=== PATIENT | male | born 1945 | race Caucasian/White ===

== ENCOUNTER 2024-07-14 10:00 | Inpatient (IN) ==
[2024-07-14 10:35] LABS: Hematocrit (blood only) 33.9 % (42.0-52.0); Hemoglobin 11.5 g/dl (14.0-18.0); Mean Corpuscular Hemoglobin 32.4 pg (25.0-34.0); Mean Corpuscular Hgb Conc 33.9 g/dL (32.0-36.0); Mean Corpuscular Volume 95.5 fL (80.0-100.0); Mean Platelet Volume 11.4 fL (9.4-12.4); Platelet Count 265 K/uL (130-400); RDW Coefficient of Variation 13.4 % (11.5-14.5); RDW Standard Deviation 47.4 fL (36.4-46.3); Red Blood Count 3.55 M/uL (4.70-6.10); White Blood Count 16.87 K/ul (4.8-10.8)
--- NOTE | 2024-07-14 10:35 | XRay Report ---
XR chest 1V portable CLINICAL HISTORY: Chest pain, nonspecific COMPARISON STUDY: Chest CT December 27, 2012. Chest radiograph May 12, 2018. FINDINGS: There is no pneumothorax. A trace right pleural effusion is unchanged. This is likely chron ic. Linear right lung densities are unchanged and favor scarring. A 5 cm left perihilar mass-like abn ormality has developed. Multiple pulmonary nodules have also developed, measuring up to 1.9 cm. There is asymmetric right lower lung opacity. Cardiac size is stable. There is mild interstitial thickenin g. IMPRESSION: 1. Interval development of a 5 cm left perihilar mass-like abnormality. This is likely neoplastic and could represent a primary lung malignancy or pathologic lymph node. Multiple pulmonary nodules whic h are suspicious for metastatic disease. A chest CT with contrast is recommended for further evaluati on. 2. Nodular right lower lung opacity which could reflect a pulmonary nodule or focus of pneumonia. 3. Pulmonary vascular congestion. 4. Chronic changes within the right lung. ACT 112: Positive. There are findings on this exam that require communication between the performing entity and the patient following Patient Test Result Information Act ([place] Act 112) guidelines. Electronically signed by: Asael Humphrey M.D. 07/14/2024 10:33 AM
[2024-07-14 10:36] LABS: iSTAT Creatinine 0.8 mg/dl (0.6-1.3); iSTAT Hemoglobin 11.9 g/dl (14.0-18.0); iSTAT Ionized Calcium 1.47 mmol/l (1.12-1.32); iSTAT Potassium 3.5 mmol/L (3.3-5.0)
[2024-07-14] MEDS: MoRPHine SULFATE 4 MG/ML 1 ML CARP\\VIAL IV STA ×3 (10:42→12:52)
--- NOTE | 2024-07-14 10:42 | Emergency Department Note ---
Impression & Plan Hypoxia, Metastatic cancer, Abdominal pain, Acute confusion, Admission for hospice care ED Provider Note NAME: FARNAZ MCCAULEY AGE: 79 SEX: M : 1945 ARRIVES VIA: Ambulance INFORMANT: Patient ED PROVIDER(S): Peter Jackson DO CHIEF COMPLAINT: Altered mental status and abdominal pain HPI: Patient is an 79-year-old male with a past medical history of hypertension, hyperlipidemia, prediabetes, CAD who presents to the ER for confusion. Patient was found by EMS to be hypoxic. Patient was brought in and placed on 2 L nasal cannula. He admits to a runny nose. EMS also noted that he was confused. Patient admits to belly pain which he believes has been present for greater than 24 hours. He admits to urinary symptoms and notes that he is having trouble urinating and cannot urinate. He was able to urinate just prior to arrival. Family is present at bedside and notes that patient has been having worsening abdominal pain over the past several days. ADDITIONAL HISTORY OBTAINED: Per HPI Chronic Medical/Social Conditions Affecting Care: Per HPI PAST MEDICAL HISTORY:See Below PAST SURGICAL HISTORY:See Below FAMILY HISTORY:See Below SOCIAL HISTORY:See Below HOME MEDICATIONS:See Below ALLERGIES:See Below VITALS:See Below PHYSICAL EXAMINATION: GENERAL: Sitting up in bed, alert, ill-appearing, moderate distress holding his abdomen EYE EXAM: normal conjunctiva. PERRL and EOM's grossly intact. OROPHARYNX: no exudate, no erythema, lips, buccal mucosa, and tongue normal and mucous membranes are moist NECK: supple, no nuchal rigidity, no adenopathy, non-tender LUNGS: Clear to auscultation. Normal chest wall mechanics HEART: no murmurs, S1 normal and S2 normal ABDOMEN: abdomen soft, non-tender, normo-active bowel sounds, no masses, no rebound or guarding. UPPER EXTREMITIES: upper extremities are grossly normal. LOWER EXTREMITIES: No pitting edema. NEURO EXAM: Oriented to person and place but not year, cranial nerves II-XII intact, normal speech, no weakness of arms, no weakness of legs. No drift. Finger to nose intact. Gross sensation intact. MEDICAL DECISION MAKING: Patient is an 79-year-old male with a past medical history of hypertension, hyperlipidemia, CAD and STEMI who presents to the ER for the above-stated complaint. IV was established and blood work was obtained. Labs show a leukocytosis of 16,000. Mild anemia 11.5. INR unremarkable. BMP with slightly elevated glucose at 125. LFTs and bilirubin were unremarkable. Troponin was negative. Lipase was normal. UA was clean. CT of the chest and abdomen pelvis shows metastatic disease and no obvious obstruction or infectious process. Patient was given multiple doses of morphine while in the ER. Discussed with care managers as family would like to place him on hospice. They assisted with getting this set up and this will be set up for tomorrow. I spoke with the hospitalist and patient will be coming in for pain control. He remained on nasal cannula throughout his stay in the ER. Was admitted for further workup. Consults/Care Managements Discussions: Per MDM Triage Nursing notes reviewed. Limited review of prior medical records performed Vital Signs: reviewed and remarkable for HTN and tachy Differential diagnosis: Differential diagnoses includes but is not limited to toxic, metabolic, infectious, traumatic, cardiac, neurologic, hematologic, psychiatric and inflammatory etiologies. ER treatment provided: See below Diagnostics interpreted by me include EKG and cardiac monitoring as listed below: -Cardiac Monitoring: An order was placed for continuous cardiac monitoring. The monitor shows a rate of 90 with sinus rhythm. -ECG: none -Laboratory studies:Interpreted by me as stated above in MDM and shown below. Imaging studies: Xrays: As interpreted by me:none CTs show: CT abdomen pelvis per radiology shows no obvious obstruction per my preliminary interpreted she CT of the chest and abdomen pelvis shows metastatic disease Procedures:none Critical Care: I have personally spent 35 minutes of critical care time in the direct management of this patient. This includes bedside care, interpretation of diagnostic studies, and testing, discussion with consultants, patient, and family members, and other required patient management activities. This 35 minutes is in excess of all separately billable procedures. Past Med/Surg History Problem List (Updated 07/14/24 @ 14:18 by Peter Jackson DO) Admission for hospice care (Acute) Acute confusion (Acute) Abdominal pain (Acute) Metastatic cancer (Acute) Hypoxia (Acute) Pancreatic mass Lung mass HTN (hypertension) Hyperlipemia (Chronic) Continue increased dose of atorvastatin on discharge Prediabetes CAD (coronary artery disease) S/P drug eluting coronary stent placement Brilinta is nonformulary. Will convert to clopidogrel this morning. Cardiac rehab consultation to be placed S/P PTCA (percutaneous transluminal coronary angioplasty) STEMI (ST elevation myocardial infarction) Clinically stable. Will optimize medical therapy. Resume carvedilol and lisinopril at prehospital dosing. Reduce aspirin to 81 mg p.o. daily. Cardiac rehab consulted Tobacco cessation mandated Follow-up with cardiology 2- 4 weeks time [place] Fall (Acute) Hip fracture (Acute) Social History Smoking Status: Current every day smoker Second Hand Exposure: Yes; Do You Dip or Chew Tobacco: No; Hx Alcohol Use: No Hx Substance Use: No Preferred Language: Wolof Communication Ability: Effective [employer] Required: No Beliefs That Will Affect Care: None Current Living Situation: Spouse Feels Safe at Home: Yes Assistive Devices: None Allergies Allergies Allergy/AdvReac Type Severity Reaction Status Date / Time No Known Allergies Allergy Unverified 07/14/24 11:58 Home Meds Home Medications Medication Instructions Recorded Confirmed carvedilol 25 mg tablet 25 mg PO BID 05/11/18 07/14/24 indapamide 2.5 mg tablet 2.5 mg PO QAM 05/11/18 07/14/24 lisinopril 40 mg tablet 40 mg PO DAILY 05/11/18 07/14/24 nitroglycerin 0.4 mg sublingual 0.4 mg sublingual Q5M PRN Chest 05/11/18 07/14/24 tablet Pain atorvastatin 80 mg tablet 80 mg PO DAILY 07/14/24 07/14/24 clopidogrel 75 mg tablet 75 mg PO QAM 07/14/24 07/14/24 ferrous gluconate 324 mg (37.5 mg 324 mg PO DAILY 07/14/24 07/14/24 iron) tablet mirtazapine 15 mg tablet 15 mg PO HS 07/14/24 07/14/24 multivitamin-ferrous 1 tab PO DAILY 07/14/24 07/14/24 fumarate-folic acid 18 mg-400 mcg tablet ondansetron HCl 4 mg tablet 4 mg PO Q6H PRN Nausea And Vomiting 07/14/24 07/14/24 oxycodone 5 mg tablet 5 mg PO Q4H PRN Severe Pain (Scale 07/14/24 07/14/24 Score 7-10) terazosin 2 mg capsule 2 mg PO DAILY 07/14/24 07/14/24 trazodone 50 mg tablet 50 mg PO HS 07/14/24 07/14/24 Results & Data (ED) Vital Signs Vital Signs - 24 hr 07/14/24 10:11 07/14/24 10:18 07/14/24 10:48 Temperature 37.2 C Temperature Source Oral Pulse Rate 102 H 101 H Pulse Rate [Apical] Pulse Rate from SpO2 Sensor 98 H Pulse Rhythm Regular Pulse Rhythm [Apical] Pulse Strength Normal Pulse Strength [Apical] Respiratory Rate 31 H 23 Respiratory Effort / Characteristics Non-Labored Spontaneous Short of Breath Respiratory Depth Normal Respiratory Pattern Tachypnea Blood Pressure 187/95 H 159/72 H Blood Pressure [Right Arm] Blood Pressure Mean 125 101 Blood Pressure Mean [Right Arm] Blood Pressure Position [Right Arm] Pulse Oximetry 91 93 Oxygen Delivery Method Room Air Nasal Cannula Oxygen Flow Rate 2 Sepsis Recent Fever Within 48 Hours No Sepsis New/Unexplained Change in Mental Status Yes Sepsis Action Taken by Nursing Physician Notified 07/14/24 11:30 Temperature Temperature Source Pulse Rate Pulse Rate [Apical] 96 H Pulse Rate from SpO2 Sensor Pulse Rhythm Pulse Rhythm [Apical] Regular Pulse Strength Pulse Strength [Apical] Normal Respiratory Rate 16 Respiratory Effort / Characteristics Non-Labored Spontaneous Respiratory Depth Normal Respiratory Pattern Regular Blood Pressure Blood Pressure [Right Arm] 164/71 H Blood Pressure Mean Blood Pressure Mean [Right Arm] 102 Blood Pressure Position [Right Arm] Lying Pulse Oximetry 97 Oxygen Delivery Method Nasal Cannula Oxygen Flow Rate 2 Sepsis Recent Fever Within 48 Hours Sepsis New/Unexplained Change in Mental Status Sepsis Action Taken by Nursing Laboratory Data 07/14/24 10:13 07/14/24 10:13 Lab Results 07/14/24 07/14/24 07/14/24 Range/Units 10:13 10:24 10:27 WBC 16.87 H (4.8-10.8) K/ul RBC 3.55 L (4.70-6.10) M/uL Hgb 11.5 L (14.0-18.0) g/dl POC Hgb 11.9 L (14.0-18.0) g/dl Hct 33.9 L (42.0-52.0) % POC Hct 35 L (42-52) % MCV 95.5 (80.0-100.0) fL MCH 32.4 (25.0-34.0) pg MCHC 33.9 (32.0-36.0) g/dL RDW Std Deviation 47.4 H (36.4-46.3) fL RDW Coeff of Luis Eduardo 13.4 (11.5-14.5) % Plt Count 265 (130-400) K/uL MPV 11.4 (9.4-12.4) fL Immature Gran % (Auto) 1.7 % Neut % (Auto) 40.9 % Lymph % (Auto) 49.9 % Graham % (Auto) 7.3 % Eos % (Auto) 0.1 % Baso % (Auto) 0.1 % Neut # (Auto) 6.90 H (1.40-6.50) K/uL Lymph # (Auto) 8.42 H (1.20-3.40) K/uL Graham # (Auto) 1.23 H (0.11-0.59) K/uL Eos # (Auto) 0.01 (0.00-0.50) K/uL Baso # (Auto) 0.02 (0.00-0.20) K/uL Immature Gran # (Auto) 0.29 H (0.01-0.20) K/uL PT 12.8 H (9.0-12.0) Seconds INR 1.2 H (0.9-1.1) POC Sodium 135 (135-144) mmol/L Sodium 137 (136-145) mmol/L POC Potassium 3.5 (3.3-5.0) mmol/L Potassium 3.7 (3.5-5.1) mmol/L POC Chloride 91 L (101-112) mmol/L Chloride 94 L (98-107) mmol/L Carbon Dioxide 38 H (21-32) mmol/L POC Total CO2 32 H (24-31) mmol/L Anion Gap 5 (3-11) POC Anion Gap 16.0 (16-25) mmol/L POC BUN 17 (7-18) mg/dl BUN 16 (6-23) mg/dl Creatinine 0.73 (0.6-1.4) mg/dl POC Creatinine 0.8 (0.6-1.3) mg/dl Est Cr Clr Drug Dosing 84.5 ml/min eGFR 91.40 BUN/Creatinine Ratio 21.9 H (10-20) Glucose 125 H (70-99(Fasting)) mg/dl POC Glucose (other) 130 H (70-99) mg/dl Calcium 11.8 H (8.6-10.3) mg/dl POC Ioniz Calcium Evelia 1.47 H (1.12-1.32) mmol/l Total Bilirubin 0.6 (0.2-1.0) mg/dl AST 12 L (13-39) U/L ALT 15 (7-52) U/L Alkaline Phosphatase 80 (34-104) U/L Troponin I High Sens 12.1 (0-20) pg/ml Total Protein 6.0 (6.0-8.3) gm/dl Albumin 3.2 L (3.4-5.0) gm/dl Globulin 2.8 (2.5-4.0) gm/dl Albumin/Globulin Ratio 1.1 (0.9-2) Lipase 47 (11-82) U/L Urine Color Yellow Urine Appearance Clear (Clear) Urine pH 6.5 (4.5-7.5) Ur Specific [place] 1.017 (1.000-1.030) Urine Protein 2+ H (Negative) Urine Glucose (UA) Negative (Negative) Urine Ketones Negative (Negative) Urine Blood Negative (Negative) Urine Nitrite Negative (Negative) Urine Bilirubin Negative (Negative) Urine Urobilinogen Negative (Negative) Ur Leukocyte Esterase Negative (Negative) Urine WBC (Auto) 0-5 (0-5) /hpf Urine RBC (Auto) 3-5 H (0-2) /hpf U Hyaline Cast (Auto) 0-2 (0-2) /lpf U Epithel Cells (Auto) 0-2 (0-2) /hpf Urine Bacteria (Auto) None Seen (None Seen) Administered Medications Discontinued Medications Ioversol (Optiray 320 125ml) 120 ml IV ONCE ONE Stop: 07/14/24 11:03 Last Admin: 07/14/24 11:02 Dose: 120 ml Documented By: BRMichael Morphine Sulfate (Morphine Sulfate 4 Mg/Ml 1 Ml Carp\Vial) 4 mg IV NOW STA Stop: 07/14/24 10:40 Last Admin: 07/14/24 10:42 Dose: 4 mg Documented By: KMO Morphine Sulfate (Morphine Sulfate 4 Mg/Ml 1 Ml Carp\Vial) 4 mg IV NOW STA Stop: 07/14/24 11:27 Last Admin: 07/14/24 12:48 Dose: 4 mg Documented By: KMO Morphine Sulfate (Morphine Sulfate 4 Mg/Ml 1 Ml Carp\Vial) 4 mg IV NOW STA Stop: 07/14/24 11:45 Last Admin: 07/14/24 12:52 Dose: Not Given Documented By: NELY Morphine Sulfate (Morphine Sulfate 10 Mg/Ml Carp/Vial) 6 mg IV NOW STA Stop: 07/14/24 13:07 Last Admin: 07/14/24 13:21 Dose: 6 mg Documented By: NELY Ondansetron HCl (Ondansetron Inj 2 Mg/Ml 2 Ml Vial) 4 mg IV NOW STA Stop: 07/14/24 10:44 Last Admin: 07/14/24 10:46 Dose: 4 mg Documented By: NELY Imaging Data Radiologist's Impression: Abdomen/Pelvis CT 07/14/24 10:10 CT OF THE ABDOMEN AND PELVIS WITH CONTRAST CLINICAL HISTORY: Abdominal pain. COMPARISON STUDY: CT of the abdomen and pelvis December 27, 2012. TECHNIQUE: Following IV administration of 120 mL of Optiray, axial images of the abdomen and pelvis were obtained from the lung bases to the proximal femurs. Images were reviewed in the axial, sagittal, and coronal planes. IV contrast was administered without complication. Automated exposure control was utilized for the study. A dose lowering technique was utilized adhering to the principles of ALARA. CT DOSE: 2194.64 mGy.cm FINDINGS: Please note that the chest CT will be reported separately. There are numerous nodules, many of which appear necrotic, within the lower lungs, including a 2.7 cm right middle lobe lesion on image 31 of 413. No pneumatosis, free air or portal venous gas is present. There are no hepatic lesions. There are gallstones within the gallbladder without evidence for acute cholecystitis. Bilateral adrenal gland nodularity is unchanged since CT of December 27, 2012. Multiple enlarged retroperitoneal lymph nodes are noted. The largest is a necrotic left para-aortic lymph node on image 130 that measures 3 x 2.7 cm. An ill-defined pancreatic tail lesion measures 4.2 x 3.6 cm. An ill-defined hypoenhancing left renal mass measures 5.4 x 4.5 cm. No suspicious right renal lesions are present. There is no hydronephrosis. Bilateral perinephric stranding is noted. There is also a sacral/perirectal stranding and fluid. No fluid collection is present with there is no evidence for a bowel obstruction. Left hip arthroplasty is incidentally noted. No suspicious lesions within the lumbar spine, pelvis or hips are identified by CT. IMPRESSION: 1. Numerous pulmonary metastases within the lung bases, retroperitoneal lymphadenopathy and hypoenhancing ill-defined left renal and pancreatic tail masses. These findings are neoplastic and favor metastatic disease. Metastatic lung cancer is favored given the dominant left lower lobe lesion depicted on chest CT. Although less likely, metastatic pancreatic or renal cell carcinoma could appear similar. Oncology consultation is recommended. 2. Perinephric and presacral/perirectal stranding. The findings suggest mild volume overload. 3. No bowel obstruction. No bowel wall thickening. 4. Cholelithiasis. ACT 112: Negative or not required by law. Electronically signed by: Asael Humphrey M.D. 07/14/2024 11:35 AM Chest X-Ray 07/14/24 10:10 XR chest 1V portable CLINICAL HISTORY: Chest pain, nonspecific COMPARISON STUDY: Chest CT December 27, 2012. Chest radiograph May 12, 2018. FINDINGS: There is no pneumothorax. A trace right pleural effusion is unchanged. This is likely chronic. Linear right lung densities are unchanged and favor scarring. A 5 cm left perihilar mass-like abnormality has developed. Multiple pulmonary nodules have also developed, measuring up to 1.9 cm. There is asymmetric right lower lung opacity. Cardiac size is stable. There is mild interstitial thickening. IMPRESSION: 1. Interval development of a 5 cm left perihilar mass-like abnormality. This is likely neoplastic and could represent a primary lung malignancy or pathologic lymph node. Multiple pulmonary nodules which are suspicious for metastatic disease. A chest CT with contrast is recommended for further evaluation. 2. Nodular right lower lung opacity which could reflect a pulmonary nodule or focus of pneumonia. 3. Pulmonary vascular congestion. 4. Chronic changes within the right lung. ACT 112: Positive. There are findings on this exam that require communication between the performing entity and the patient following Patient Test Result Information Act ([place] Act 112) guidelines. Electronically signed by: Asael Humphrey M.D. 07/14/2024 10:33 AM Chest CTA 07/14/24 10:40 CT angio chest PE protocol HISTORY: 79 years-old Male with PE. Acute shortness of breath TECHNIQUE: Multiple CTA images of the chest were obtained after the intravenous administration of 120 ml Optiray. Coronal and sagittal MIPS were obtained from the axial data set and were submitted for review. All measurements were obtained according to NASCET criteria. A dose lowering technique was utilized adhering to the principles of ALARA. COMPARISON: CT abdomen and pelvis of same day FINDINGS: CTA: Mild cardiomegaly. No pericardial effusion. [id number] coronary artery calcifications. Atherosclerosis of the thoracic aorta without aneurysm or dissection. Unremarkable pulmonary artery. No pulmonary emboli identified. CT CHEST: Subcentimeter hypodense thyroid nodules. Subcentimeter mediastinal and hilar lymph nodes. Chronic appearing pleural thickening of the right hemithorax with pleural calcifications. Chronic appearing right lung volume loss with fibrosis and pulmonary emphysema. Bronchial wall thickening suggestive of bronchitis with areas of multifocal mucus plugging. There is a dominant centrally necrotic mass arising from the posterior left hilum involving the left upper lobe abutting and crossing the adjacent fissure overall measuring approximately 6.9 x 6.0 x 5.7 cm. There are adjacent satellite nodules along superior margin of the mass. Numerous pulmonary metastasis extending to a subpleural distributions including a 2.5 cm lesion of the lingula on image 113. A 2.3 cm right-sided lesion is noted on image 89 series 5. Body wall edema. Probable sebaceous cystr of the back on image 95 measures 1.8 cm. Pancreatic mass. Stable nodular thickening of the adrenal glands. Osteolytic skeletal lesions at T5 with cortical destruction and left lateral vertebral body soft tissue component. There is only minimal vertebral body height loss. IMPRESSION: 1. Left posterior hilar/left upper lobe mass measures 6.9 cm suspicious for primary bronchogenic carcinoma or less likely a large metastatic focus. 2. Multifocal pulmonary metastasis. 3. Pulmonary emphysema with tracheobronchial secretions, bronchitis and mucous plugging. 4. Cardiomegaly with equivocal mild interstitial pulmonary edema. 5. Osteolytic T5 metastatic lesion with mild vertebral body height loss. 6. Large pancreatic mass suggestive of metastasis. Please refer to the same day CT abdomen and pelvis study for additional findings. 7. No pulmonary emboli identified. ACT 112: Negative or not required by law. The above report was generated using voice recognition software. It may contain grammatical, syntax or spelling errors. Electronically signed by: Delon Carr M.D. 07/14/2024 11:38 AM Discharge Plan Visit Data Chief Complaint: Illness Stated Complaint: SOB, CONFUSION, PAIN ALL OVER ED Provider: Peter Jackson Discharge Problem: Hypoxia, Metastatic cancer, Abdominal pain, Acute confusion, Admission for hospice care Patient Disposition: Admitted As Inpatient Discharge Instructions Interventions: ED Discharge Assessment Last Done: 07/14/24 13:33 Discharge Problem: Metastatic cancer Qualifiers: Area of secondary neoplastic involvement: unspecified site Qualified Code(s): C 79.9 - Secondary malignant neoplasm of unspecified site Abdominal pain Qualifiers: Abdominal location: unspecified location Qualified Code(s): R10.9 - Unspecified abdominal pain
[2024-07-14] MEDS: ONDANSETRON INJ 2 MG/ML 2 ML VIAL IV STA (10:46)
[2024-07-14 10:52] LABS: Albumin Globulin Ratio 1.1 (0.9-2); Albumin Level 3.2 gm/dl (3.4-5.0); BUN Creatinine Ratio 21.9 (10-20); Bilirubin,Total 0.6 mg/dl (0.2-1.0); Calcium 11.8 mg/dl (8.6-10.3); Creatinine Clr Calc Pharmacy 84.5 ml/min; Globulin 2.8 gm/dl (2.5-4.0); Potassium 3.7 mmol/L (3.5-5.1)
[2024-07-14 10:55] LABS: Appearance Urine Clear (Clear); Bacteria Urine Automated None Seen (None Seen); Bilirubin Urine Negative (Negative); Blood Urine Negative (Negative); Cast Urine Automated 0-2 /lpf (0-2); Color Urine Yellow; Epithelial Cell Urine Auto 0-2 /hpf (0-2); Glucose Urine UA Negative (Negative); Ketones Urine Negative (Negative); Leukocyte Esterase Urine Negative (Negative); Nitrite Urine Negative (Negative); Protein Urine 2+ (Negative); Specific Gravity Urine 1.017 (1.000-1.030); Urobilinogen Urine Negative (Negative); WBC Urine Automated 0-5 /hpf (0-5); pH Urine 6.5 (4.5-7.5)
[2024-07-14 10:56] LABS: Troponin I High Sensitivity 12.1 pg/ml (0-20)
[2024-07-14] MEDS: OPTIRAY 320 125ml IV ONE (11:02)
[2024-07-14 11:25] LABS: INR 1.2 (0.9-1.1); Prothrombin Time 12.8 Seconds (9.0-12.0)
--- NOTE | 2024-07-14 11:38 | CT Scan Report ---
CT OF THE ABDOMEN AND PELVIS WITH CONTRAST CLINICAL HISTORY: Abdominal pain. COMPARISON STUDY: CT of the abdomen and pelvis December 27, 2012. TECHNIQUE: Following IV administration of 120 mL of Optiray, axial images of the abdomen and pelvis w ere obtained from the lung bases to the proximal femurs. Images were reviewed in the axial, sagittal, and coronal planes. IV contrast was administered without complication. Automated exposure control w as utilized for the study. A dose lowering technique was utilized adhering to the principles of JOSE Olivier. CT DOSE: 2194.64 mGy.cm FINDINGS: Please note that the chest CT will be reported separately. There are numerous nodules, many of which appear necrotic, within the lower lungs, including a 2.7 cm right middle lobe lesion on liyah ge 31 of 413. No pneumatosis, free air or portal venous gas is present. There are no hepatic lesions. There are gallstones within the gallbladder without evidence for acute cholecystitis. Bilateral adre nal gland nodularity is unchanged since CT of December 27, 2012. Multiple enlarged retroperitoneal lymph nodes are noted. The largest is a necrotic left para-aortic lymph node on image 130 that measures 3 x 2.7 cm. An ill-defined pancreatic tail lesion measures 4.2 x 3.6 cm. An ill-defined hypoenhancing l eft renal mass measures 5.4 x 4.5 cm. No suspicious right renal lesions are present. There is no hydr onephrosis. Bilateral perinephric stranding is noted. There is also a sacral/perirectal stranding and fluid. No fluid collection is present with there is no evidence for a bowel obstruction. Left hip ar throplasty is incidentally noted. No suspicious lesions within the lumbar spine, pelvis or hips are i dentified by CT. IMPRESSION: 1. Numerous pulmonary metastases within the lung bases, retroperitoneal lymphadenopathy and hypoenhan cing ill-defined left renal and pancreatic tail masses. These findings are neoplastic and favor metas tatic disease. Metastatic lung cancer is favored given the dominant left lower lobe lesion depicted o n chest CT. Although less likely, metastatic pancreatic or renal cell carcinoma could appear similar. Oncology consultation is recommended. 2. Perinephric and presacral/perirectal stranding. The findings suggest mild volume overload. 3. No bowel obstruction. No bowel wall thickening. 4. Cholelithiasis. ACT 112: Negative or not required by law. Electronically signed by: Asael Humphrey M.D. 07/14/2024 11:35 AM
--- NOTE | 2024-07-14 11:40 | CT Scan Report ---
CT angio chest PE protocol HISTORY: 79 years-old Male with PE. Acute shortness of breath TECHNIQUE: Multiple CTA images of the chest were obtained after the intravenous administration of 120 ml Optiray. Coronal and sagittal MIPS were obtained from the axial data set and were submitted for review. All measurements were obtained according to NASCET criteria. A dose lowering technique was u tilized adhering to the principles of ALARA. COMPARISON: CT abdomen and pelvis of same day FINDINGS: CTA: Mild cardiomegaly. No pericardial effusion. [id number] coronary artery calcifications. Atherosc lerosis of the thoracic aorta without aneurysm or dissection. Unremarkable pulmonary artery. No pulmo nary emboli identified. CT CHEST: Subcentimeter hypodense thyroid nodules. Subcentimeter mediastinal and hilar lymph nodes. Chronic dina earing pleural thickening of the right hemithorax with pleural calcifications. Chronic appearing righ t lung volume loss with fibrosis and pulmonary emphysema. Bronchial wall thickening suggestive of bro nchitis with areas of multifocal mucus plugging. There is a dominant centrally necrotic mass arising from the posterior left hilum involving the left upper lobe abutting and crossing the adjacent fissure overall measuring approximately 6.9 x 6.0 x 5.7 cm. There are adjacent satellite nodules along superior margin of the mass. Numerous pulmonary metas tasis extending to a subpleural distributions including a 2.5 cm lesion of the lingula on image 113. A 2.3 cm right-sided lesion is noted on image 89 series 5. Body wall edema. Probable sebaceous cystr of the back on image 95 measures 1.8 cm. Pancreatic mass. S table nodular thickening of the adrenal glands. Osteolytic skeletal lesions at T5 with cortical destr uction and left lateral vertebral body soft tissue component. There is only minimal vertebral body he ight loss. IMPRESSION: 1. Left posterior hilar/left upper lobe mass measures 6.9 cm suspicious for primary bronchogenic carc inoma or less likely a large metastatic focus. 2. Multifocal pulmonary metastasis. 3. Pulmonary emphysema with tracheobronchial secretions, bronchitis and mucous plugging. 4. Cardiomegaly with equivocal mild interstitial pulmonary edema. 5. Osteolytic T5 metastatic lesion with mild vertebral body height loss. 6. Large pancreatic mass suggestive of metastasis. Please refer to the same day CT abdomen and pelvis study for additional findings. 7. No pulmonary emboli identified. ACT 112: Negative or not required by law. The above report was generated using voice recognition software. It may contain grammatical, syntax o r spelling errors. Electronically signed by: Delon Carr M.D. 07/14/2024 11:38 AM
[2024-07-14] MEDS ORDERED: MoRPHine SULFATE 2 MG/ML CARP IV PRN (11:58)
[2024-07-14 12:00] LABS: Basophils # (auto) 0.02 K/uL (0.00-0.20); Basophils % (auto) 0.1 %; Eosinophils # (auto) 0.01 K/uL (0.00-0.50); Eosinophils % (auto) 0.1 %; Immature Granulocytes # (auto) 0.29 K/uL (0.01-0.20); Immature Granulocytes % (auto) 1.7 %; Lymphocytes # (auto) 8.42 K/uL (1.20-3.40); Lymphocytes % (auto) 49.9 %; Monocytes # (auto) 1.23 K/uL (0.11-0.59); Monocytes % (auto) 7.3 %; Neutrophils % (auto) 40.9 %
[2024-07-14] MEDS: MoRPHine SULFATE 10 MG/ML CARP/VIAL IV STA (13:21)
--- NOTE | 2024-07-14 13:53 | Communication Note ---
Date of Service: July 14, 2024 79-year-old male with PMH of HTN, bladder cancer, PR, prediabetes presented to the ED with complaint of pain (lower belly and back) that was not being able to be controlled at home. Patient, his and daughters were at bedside. They are aware of the metastatic nature of the disease from June 17, 2024 when he was evaluated at [facility] per them. They were managing pain at home and does not want any further oncological treatment or evaluation. Admitting imagings revealed metastatic disease. Such was discussed with them. Patient in pain at bedside complains of lower abdominal pain and back pain which are not being controlled. At bedside evaluation, patient seems to understand the gravity of situation but wants to go with whatever the daughter and his decides. Initially the daughter and his wanted to take him home regardless whether or not hospice can be arranged today. Same was communicated to ER physician and ER correctional counselor/case manager. Plan was to send him home on pain medication by ER physician and set up hospice by ER correctional counselor/case manager. but they changed their mind and were okay to stay today because they thought they will not be able to manage his pain without hospice support at home. ED physician communicated with me that they wanted to stay. Patient and his family members were again seen at the bedside. Patient's RN was also present at bedside. Detailed discussion was held regarding active treatment/hospice and comfort measures. They are clear that they do not want any oncological evaluation/treatment going forward. They also wants to keep him comfortable for as many days he has to leave. They do not want any heart monitor or blood draws or any further radiological imaging or other investigation. they want comfort measures, and want to discontinue unnecessary treatments, and want to go home on hospice as soon as possible. They are aware that he has very short time but it can't be predicted w/ 100% certainty. Problem: Metastatic disease on comfort measures: Initiate comfort measures, consult correctional counselor/case manager for hospice eval and treat. No further labs/imaging/heart monitoring/other investigation. Plan is to keep patient comfortable per patient and his family. On exam: GENERAL: Alert and oriented x3. Appears lethargic/sick/ill/in pain. On 2 L NC O2. HEENT: No pallor, no icterus. Pupils equal, round and reactive to light. Oral mucosa dry. NECK: No JVD, no neck masses. HEART: S1 and S2 heard. Regular rate and rhythm. Tachy in 90s to 100s. No murmur, no gallop. RESPIRATORY SYSTEM: Normal AP diameter. No accessory muscle use. No wheezing, no crackles. ABDOMEN: Soft, bowel sounds present, nontender, no distention. CENTRAL NERVOUS SYSTEM: No facial droop. Speech is clear. Obeys simple commands. Moves extremities. EXTREMITIES: 1-2+ ble edema, no erythema seen. I have seen and examined the patient and have discussed the case with the provider above. I agree with the assessment and plan as stated. Time spent: 65 min
[2024-07-14] MEDS ORDERED: MoRPHine SULFATE 10 MG/0.5 ML UDP PO PRN (14:14)
[2024-07-14] MEDS ORDERED: ACETAMINOPHEN 325 MG TAB PO PRN (14:14)
--- NOTE | 2024-07-14 14:16 | History & Physical Report ---
Date of Service July 14, 2024 Assessment & Plan (1) HTN (hypertension): (2) Hyperlipemia: (3) CAD (coronary artery disease): (4) S/P drug eluting coronary stent placement: (5) S/P PTCA (percutaneous transluminal coronary angioplasty): (6) STEMI (ST elevation myocardial infarction): (7) Lung mass: (8) Pancreatic mass: Plan Assessment and plan: Heavily suspected metastatic disease Lung mets/pancreatic mass After extensive discussion with the patient and patient's family, the patient will be initiated on comfort measures innovation manager/hospice consulted for further evaluation and treatment Hopeful for discharge home in the next 24 hours on hospice. Will manage pain HTN: Continue carvedilol/lisinopril No further workup/lab work/heart monitoring indicated at this time A total of 60 minutes was spent on chart review/reviewing diagnostic data/facilitating plan of care/discussion with consultants Patient is a DNR/DNI DVT prophylaxis: SCDs Admission and Anticipated Discharge Date Admission Date: July 14, 2024 History of Present Illness Chief Complaint: Abdominal pain, shortness of breath Primary Care Provider: Bennett Slaughter MD The patient is a 79-year-old male with a past medical history of bladder [place], [place], HTN, [place], and recently discovered lung masses/pancreatic mass/metastatic disease recently diagnosed on 06/17/2024 when he was evaluated at [facility] per the patient and patient family. At this point, they were following with the PCP and they did not want any further oncology workup. The patient was being managed on oral pain meds at this time. On exam, patient reports some lower abdominal pain but reports that shortness of breath is improved. He is on 2 L of oxygen. The patient and the patient's family reports that the oxycodone was working up until a few days ago. They were also having trouble getting a refill from the patient's primary care provider. The patient's daughter also reports that he has not been eating anything over the past few days and having issues with constipation as well. On arrival to the ED, labs were remarkable for WBC 16, hemoglobin 11.5, calcium 11.8, AST 12 Chest CTA showed: 1. Left posterior hilar/left upper lobe mass measures 6.9 cm suspicious for primary bronchogenic carcinoma or less likely a large metastatic focus. 2. Multifocal pulmonary metastasis. 3. Pulmonary emphysema with tracheobronchial secretions, bronchitis and mucous plugging. 4. Cardiomegaly with equivocal mild interstitial pulmonary edema. 5. Osteolytic T5 metastatic lesion with mild vertebral body height loss. 6. Large pancreatic mass suggestive of metastasis. Please refer to the same day CT abdomen and pelvis study for additional findings. 7. No pulmonary emboli identified. Chest x-ray Showed: 1. Interval development of a 5 cm left perihilar mass-like abnormality. This is likely neoplastic and could represent a primary lung malignancy or pathologic lymph node. Multiple pulmonary nodules which are suspicious for metastatic disease. A chest CT with contrast is recommended for further evaluation. 2. Nodular right lower lung opacity which could reflect a pulmonary nodule or focus of pneumonia. 3. Pulmonary vascular congestion. 4. Chronic changes within the right lung. Abdomen/pelvis CT showed: 1. Numerous pulmonary metastases within the lung bases, retroperitoneal lymphadenopathy and hypoenhancing ill-defined left renal and pancreatic tail masses. These findings are neoplastic and favor metastatic disease. Metastatic lung cancer is favored given the dominant left lower lobe lesion depicted on chest CT. Although less likely, metastatic pancreatic or renal cell carcinoma could appear similar. Oncology consultation is recommended. 2. Perinephric and presacral/perirectal stranding. The findings suggest mild volume overload. 3. No bowel obstruction. No bowel wall thickening. 4. Cholelithiasis. Extensive discussion with Dr. Montez, the patient, the patient's daughter and the patient's about comfort measures versus further workup. Initially the and the daughter wanted to take the patient home but after further discussion, the patient will be admitted as a DNR/DNI and hospice and case management will be consulted to help facilitate discharge home on hospice. Primary concern is pain control. Allergies Allergy/AdvReac Type Severity Reaction Status Date / Time No Known Allergies Allergy Unverified 07/14/24 11:58 Home Medications Medication Instructions Recorded Confirmed Type carvedilol 25 mg tablet 25 mg PO BID 05/11/18 07/14/24 History indapamide 2.5 mg tablet 2.5 mg PO QAM 05/11/18 07/14/24 History lisinopril 40 mg tablet 40 mg PO DAILY 05/11/18 07/14/24 History nitroglycerin 0.4 mg sublingual 0.4 mg sublingual Q5M PRN Chest 05/11/18 07/14/24 History tablet Pain atorvastatin 80 mg tablet 80 mg PO DAILY 07/14/24 07/14/24 History clopidogrel 75 mg tablet 75 mg PO QAM 07/14/24 07/14/24 History ferrous gluconate 324 mg (37.5 mg 324 mg PO DAILY 07/14/24 07/14/24 History iron) tablet mirtazapine 15 mg tablet 15 mg PO HS 07/14/24 07/14/24 History multivitamin-ferrous 1 tab PO DAILY 07/14/24 07/14/24 History fumarate-folic acid 18 mg-400 mcg tablet ondansetron HCl 4 mg tablet 4 mg PO Q6H PRN Nausea And Vomiting 07/14/24 07/14/24 History oxycodone 5 mg tablet 5 mg PO Q4H PRN Severe Pain (Scale 07/14/24 07/14/24 History Score 7-10) terazosin 2 mg capsule 2 mg PO DAILY 07/14/24 07/14/24 History trazodone 50 mg tablet 50 mg PO HS 07/14/24 07/14/24 History Past Med/Surg History Problem List (Updated 07/14/24 @ 14:18 by Peter Jackson DO) Admission for hospice care (Acute) Acute confusion (Acute) Abdominal pain (Acute) Metastatic cancer (Acute) Hypoxia (Acute) Pancreatic mass Lung mass HTN (hypertension) Hyperlipemia (Chronic) Continue increased dose of atorvastatin on discharge Prediabetes CAD (coronary artery disease) S/P drug eluting coronary stent placement Brilinta is nonformulary. Will convert to clopidogrel this morning. Cardiac rehab consultation to be placed S/P PTCA (percutaneous transluminal coronary angioplasty) STEMI (ST elevation myocardial infarction) Clinically stable. Will optimize medical therapy. Resume carvedilol and lisinopril at prehospital dosing. Reduce aspirin to 81 mg p.o. daily. Cardiac rehab consulted Tobacco cessation mandated Follow-up with cardiology 2- 4 weeks time [facility] (Acute) Hip fracture (Acute) Social History Smoking Status: Current every day smoker Second Hand Exposure: Yes; Do You Dip or Chew Tobacco: No; Hx Alcohol Use: No Hx Substance Use: No Preferred Language: Barbadian Communication Ability: Effective Roll Winder Required: No Beliefs That Will Affect Care: Spiritual Current Living Situation: Spouse Feels Safe at Home: Yes Assistive Devices: None Review of Systems Review of Systems: All systems reviewed & are unremarkable except as noted in HPI & below Physical Exam Constitutional: WD/WN, vitals as above + ill appearing Eyes: PERRL, conjunctivae normal, anicteric sclerae ENMT: external ear and nose normal, oropharynx normal Neck: trachea midline, no thyromegaly Respiratory: normal respiratory effort, lungs clear to auscultation Cardiovascular: RRR, no murmur, no edema Gastrointestinal (Abdomen): normal bowel sounds, soft, nontender, no hepatosplenomegaly Musculoskeletal: no cyanosis or clubbing, extremities motor strength 5/5 Skin: no rashes, warm and dry Neurologic: patellar DTR's 2+ bilat, sensation intact Lymphatic: no cervical or axillary lymphadenopathy Results & Data Results & Data Vital Signs (Past 12 Hours) Vital Signs Temp Pulse Pulse Resp BP BP Pulse Ox 07/14/24 13:33 07/14/24 13:00 94 H 16 170/76 H 96 07/14/24 12:30 172/121 H 07/14/24 12:27 99 H 21 96 07/14/24 12:15 99 H 25 H 96 07/14/24 12:00 146/112 H 07/14/24 11:30 96 H 16 164/71 H 97 07/14/24 10:48 23 159/72 H 93 07/14/24 10:18 37.2 C 101 H 31 H 187/95 H 91 07/14/24 10:11 102 H O2 Del Method O2 Flow Rate 07/14/24 13:33 Room Air 07/14/24 13:00 Nasal Cannula 2 07/14/24 12:30 07/14/24 12:27 Nasal Cannula 2 07/14/24 12:15 Nasal Cannula 2 07/14/24 12:00 07/14/24 11:30 Nasal Cannula 2 07/14/24 10:48 Nasal Cannula 2 07/14/24 10:18 Room Air 07/14/24 10:11 Diagnostic Findings Laboratory Results WBC 16.87 K/ul (4.8-10.8) H 07/14/24 10:13 RBC 3.55 M/uL (4.70-6.10) L 07/14/24 10:13 Hgb 11.5 g/dl (14.0-18.0) L 07/14/24 10:13 POC Hgb 11.9 g/dl (14.0-18.0) L 07/14/24 10:24 Hct 33.9 % (42.0-52.0) L 07/14/24 10:13 POC Hct 35 % (42-52) L 07/14/24 10:24 MCV 95.5 fL (80.0-100.0) 07/14/24 10:13 MCH 32.4 pg (25.0-34.0) 07/14/24 10:13 MCHC 33.9 g/dL (32.0-36.0) 07/14/24 10:13 RDW Std Deviation 47.4 fL (36.4-46.3) H 07/14/24 10:13 RDW Coeff of Luis Eduardo 13.4 % (11.5-14.5) 07/14/24 10:13 Plt Count 265 K/uL (130-400) 07/14/24 10:13 MPV 11.4 fL (9.4-12.4) 07/14/24 10:13 Immature Gran % (Auto) 1.7 % 07/14/24 10:13 Neut % (Auto) 40.9 % 07/14/24 10:13 Lymph % (Auto) 49.9 % 07/14/24 10:13 [place] % (Auto) 7.3 % 07/14/24 10:13 Eos % (Auto) 0.1 % 07/14/24 10:13 Baso % (Auto) 0.1 % 07/14/24 10:13 Neut # (Auto) 6.90 K/uL (1.40-6.50) H 07/14/24 10:13 Lymph # (Auto) 8.42 K/uL (1.20-3.40) H 07/14/24 10:13 [place] # (Auto) 1.23 K/uL (0.11-0.59) H 07/14/24 10:13 Eos # (Auto) 0.01 K/uL (0.00-0.50) 07/14/24 10:13 Baso # (Auto) 0.02 K/uL (0.00-0.20) 07/14/24 10:13 Immature Gran # (Auto) 0.29 K/uL (0.01-0.20) H 07/14/24 10:13 PT 12.8 Seconds (9.0-12.0) H 07/14/24 10:13 INR 1.2 (0.9-1.1) H 07/14/24 10:13 POC Sodium 135 mmol/L (135-144) 07/14/24 10:24 Sodium 137 mmol/L (136-145) 07/14/24 10:13 POC Potassium 3.5 mmol/L (3.3-5.0) 07/14/24 10:24 Potassium 3.7 mmol/L (3.5-5.1) 07/14/24 10:13 POC Chloride 91 mmol/L (101-112) L 07/14/24 10:24 Chloride 94 mmol/L (98-107) L 07/14/24 10:13 Carbon Dioxide 38 mmol/L (21-32) H 07/14/24 10:13 POC Total CO2 32 mmol/L (24-31) H 07/14/24 10:24 Anion Gap 5 (3-11) 07/14/24 10:13 POC Anion Gap 16.0 mmol/L (16-25) 07/14/24 10:24 POC BUN 17 mg/dl (7-18) 07/14/24 10:24 BUN 16 mg/dl (6-23) 07/14/24 10:13 Creatinine 0.73 mg/dl (0.6-1.4) 07/14/24 10:13 POC Creatinine 0.8 mg/dl (0.6-1.3) 07/14/24 10:24 Est Cr Clr Drug Dosing 84.5 ml/min 07/14/24 10:13 eGFR 91.40 07/14/24 10:13 BUN/Creatinine Ratio 21.9 (10-20) H 07/14/24 10:13 Glucose 125 mg/dl (70-99(Fasting)) H 07/14/24 10:13 POC Glucose (other) 130 mg/dl (70-99) H 07/14/24 10:24 Calcium 11.8 mg/dl (8.6-10.3) H 07/14/24 10:13 POC Ioniz Calcium E[place]ia 1.47 mmol/l (1.12-1.32) H 07/14/24 10:24 Total Bilirubin 0.6 mg/dl (0.2-1.0) 07/14/24 10:13 AST 12 U/L (13-39) L 07/14/24 10:13 ALT 15 U/L (7-52) 07/14/24 10:13 Alkaline Phosphatase 80 U/L (34-104) 07/14/24 10:13 Troponin I High Sens 12.1 pg/ml (0-20) 07/14/24 10:13 Total Protein 6.0 gm/dl (6.0-8.3) 07/14/24 10:13 Albumin 3.2 gm/dl (3.4-5.0) L 07/14/24 10:13 Globulin 2.8 gm/dl (2.5-4.0) 07/14/24 10:13 Albumin/Globulin Ratio 1.1 (0.9-2) 07/14/24 10:13 Lipase 47 U/L (11-82) 07/14/24 10:13 Urine Color Yellow 07/14/24 10:27 Urine Appearance Clear (Clear) 07/14/24 10:27 Urine pH 6.5 (4.5-7.5) 07/14/24 10:27 Ur Specific [place] 1.017 (1.000-1.030) 07/14/24 10:27 Urine Protein 2+ (Negative) H 07/14/24 10:27 Urine Glucose (UA) Negative (Negative) 07/14/24 10:27 Urine Ketones Negative (Negative) 07/14/24 10:27 Urine Blood Negative (Negative) 07/14/24 10:27 Urine Nitrite Negative (Negative) 07/14/24 10:27 Urine Bilirubin Negative (Negative) 07/14/24 10:27 Urine Urobilinogen Negative (Negative) 07/14/24 10:27 Ur Leukocyte Esterase Negative (Negative) 07/14/24 10:27 Urine WBC (Auto) 0-5 /hpf (0-5) 07/14/24 10:27 Urine RBC (Auto) 3-5 /hpf (0-2) H 07/14/24 10:27 U Hyaline Cast (Auto) 0-2 /lpf (0-2) 07/14/24 10:27 U Epithel Cells (Auto) 0-2 /hpf (0-2) 07/14/24 10:27 Urine Bacteria (Auto) None Seen (None Seen) 07/14/24 10:27 Impressions Abdomen/Pelvis CT 07/14/24 10:10 CT OF THE ABDOMEN AND PELVIS WITH CONTRAST CLINICAL HISTORY: Abdominal pain. COMPARISON STUDY: CT of the abdomen and pelvis December 27, 2012. TECHNIQUE: Following IV administration of 120 mL of Optiray, axial images of the abdomen and pelvis were obtained from the lung bases to the proximal femurs. Images were reviewed in the axial, sagittal, and coronal planes. IV contrast was administered without complication. Automated exposure control was utilized for the study. A dose lowering technique was utilized adhering to the principles of ALARA. CT DOSE: 2194.64 mGy.cm FINDINGS: Please note that the chest CT will be reported separately. There are numerous nodules, many of which appear necrotic, within the lower lungs, including a 2.7 cm right middle lobe lesion on image 31 of 413. No pneumatosis, free air or portal venous gas is present. There are no hepatic lesions. There are gallstones within the gallbladder without evidence for acute cholecystitis. Bilateral adrenal gland nodularity is unchanged since CT of December 27, 2012. Multiple enlarged retroperitoneal lymph nodes are noted. The largest is a necrotic left para-aortic lymph node on image 130 that measures 3 x 2.7 cm. An ill-defined pancreatic tail lesion measures 4.2 x 3.6 cm. An ill-defined hypoenhancing left renal mass measures 5.4 x 4.5 cm. No suspicious right renal lesions are present. There is no hydronephrosis. Bilateral perinephric stranding is noted. There is also a sacral/perirectal stranding and fluid. No fluid collection is present with there is no evidence for a bowel obstruction. Left hip arthroplasty is incidentally noted. No suspicious lesions within the lumbar spine, pelvis or hips are identified by CT. IMPRESSION: 1. Numerous pulmonary metastases within the lung bases, retroperitoneal lymphadenopathy and hypoenhancing ill-defined left renal and pancreatic tail masses. These findings are neoplastic and favor metastatic disease. Metastatic lung cancer is favored given the dominant left lower lobe lesion depicted on chest CT. Although less likely, metastatic pancreatic or renal cell carcinoma could appear similar. Oncology consultation is recommended. 2. Perinephric and presacral/perirectal stranding. The findings suggest mild volume overload. 3. No bowel obstruction. No bowel wall thickening. 4. Cholelithiasis. ACT 112: Negative or not required by law. Electronically signed by: Asael Humphrey M.D. 07/14/2024 11:35 AM Chest X-Ray 07/14/24 10:10 XR chest 1V portable CLINICAL HISTORY: Chest pain, nonspecific COMPARISON STUDY: Chest CT December 27, 2012. Chest radiograph May 12, 2018. FINDINGS: There is no pneumothorax. A trace right pleural effusion is unchanged. This is likely chronic. Linear right lung densities are unchanged and favor scarring. A 5 cm left perihilar mass-like abnormality has developed. Multiple pulmonary nodules have also developed, measuring up to 1.9 cm. There is asymmetric right lower lung opacity. Cardiac size is stable. There is mild interstitial thickening. IMPRESSION: 1. Interval development of a 5 cm left perihilar mass-like abnormality. This is likely neoplastic and could represent a primary lung malignancy or pathologic lymph node. Multiple pulmonary nodules which are suspicious for metastatic disease. A chest CT with contrast is recommended for further evaluation. 2. Nodular right lower lung opacity which could reflect a pulmonary nodule or focus of pneumonia. 3. Pulmonary vascular congestion. 4. Chronic changes within the right lung. ACT 112: Positive. There are findings on this exam that require communication between the performing entity and the patient following Patient Test Result In [place] Act ([place] Act 112) guidelines. Electronically signed by: Asael Humphrey M.D. 07/14/2024 10:33 AM Chest CTA 07/14/24 10:40 CT angio chest PE protocol HISTORY: 79 years-old Male with PE. Acute shortness of breath TECHNIQUE: Multiple CTA images of the chest were obtained after the intravenous administration of 120 ml Optiray. Coronal and sagittal MIPS were obtained from the axial data set and were submitted for review. All measurements were obtained according to NASCET criteria. A dose lowering technique was utilized adhering to the principles of ALARA. COMPARISON: CT abdomen and pelvis of same day FINDINGS: CTA: Mild cardiomegaly. No pericardial effusion. [id number] coronary artery calcifications. Atherosclerosis of the thoracic aorta without aneurysm or dissection. Unremarkable pulmonary artery. No pulmonary emboli identified. CT CHEST: Subcentimeter hypodense thyroid nodules. Subcentimeter mediastinal and hilar lymph nodes. Chronic appearing pleural thickening of the right hemithorax with pleural calcifications. Chronic appearing right lung volume loss with fibrosis and pulmonary emphysema. Bronchial wall thickening suggestive of bronchitis with areas of multifocal mucus plugging. There is a dominant centrally necrotic mass arising from the posterior left hilum involving the left upper lobe abutting and crossing the adjacent fissure overall measuring approximately 6.9 x 6.0 x 5.7 cm. There are adjacent satellite nodules along superior margin of the mass. Numerous pulmonary metastasis extending to a subpleural distributions including a 2.5 cm lesion of the lingula on image 113. A 2.3 cm right-sided lesion is noted on image 89 series 5. Body wall edema. Probable sebaceous cystr of the back on image 95 measures 1.8 cm. Pancreatic mass. Stable nodular thickening of the adrenal glands. Osteolytic skeletal lesions at T5 with cortical destruction and left lateral vertebral body soft tissue component. There is only minimal vertebral body height loss. IMPRESSION: 1. Left posterior hilar/left upper lobe mass measures 6.9 cm suspicious for primary bronchogenic carcinoma or less likely a large metastatic focus. 2. Multifocal pulmonary metastasis. 3. Pulmonary emphysema with tracheobronchial secretions, bronchitis and mucous plugging. 4. Cardiomegaly with equivocal mild interstitial pulmonary edema. 5. Osteolytic T5 metastatic lesion with mild vertebral body height loss. 6. Large pancreatic mass suggestive of metastasis. Please refer to the same day CT abdomen and pelvis study for additional findings. 7. No pulmonary emboli identified. ACT 112: Negative or not required by law. The above report was generated using voice recognition software. It may contain grammatical, syntax or spelling errors. Electronically signed by: Delon Carr M.D. 07/14/2024 11:38 AM Code Status & VTE Plan VTE Prophylaxis Plan VTE Prophylaxis will be ordered: Yes Supervising Physician Co-Signing Physician Notes see communication note.
[2024-07-14 14:17] VITALS: BP 162/65; PULSE 91; RESP 18; TEMP 98.6; O2SAT 95
[2024-07-14] MEDS ORDERED: ONDANSETRON 4 MG OD TAB PO PRN (14:25)
[2024-07-14] MEDS: MoRPHine SULFATE 4 MG/ML 1 ML CARP\\VIAL IV PRN (18:31)
[2024-07-14] MEDS: ONDANSETRON INJ 2 MG/ML 2 ML VIAL IV PRN (18:32)
[2024-07-14] MEDS: traZODone HCL 50 MG TAB PO SCH (22:09)
[2024-07-14] MEDS: MIRTAZAPINE TAB 15 MG TAB PO SCH (22:09)
[2024-07-14] MEDS: carvediloL 25 MG TAB PO SCH (22:09)
--- OUTSIDE RECORDS SUMMARY | 2024-07-14 23:01 | External Medical Summary | Summary of Care ---
Author Name Unknown Organization [facility] [address] [facility] [address] Phone [phone] Care Team Providers Care Seamstress Fitter Name Role Phone Bhavani November AMERICO Primary Care Provider [phone] Reason for Visit * Reason Onset Date Comments Scheduling 07/13/2024 Encounter Details Date Type Department Care Team (Late st Contact Info) Description 07/13/2024 Telephone Family Practice [facility] [address] [facility] [place] [address] Bennett Slaughter III, MD 200 [place] [address] Scheduling Allergies Active Allergy Reactions Criticality Noted Date Comments Tramadol 01/25/2016 Nausea documented as of this encounter (statuses as of 07/13/2024) Medications nitroglycerin (NITROSTAT) 0.[address] 1 Tab under the tongue every 5 minutes as needed for Pain, Chest. 25 Tab 1 05/19/2018 Active EQ ASPIRIN ADULT LOW DOSE 81 MG TBEC Take 1 tablet by mouth once daily 100 Tab 05/17/2020 Active Terazosin HCl 2 MG Oral Capsule TAKE 1 CAPSULE BY MOUTH AT BEDTIME 90 Capsule 3 09/15/2023 Active Gabapentin 300 MG Oral Capsule (Neurontin)Indic ations:DDD (degenerative disc disease), lumbar Take 1 Capsule by mouth in the morning and 1 Capsule in the evening. 60 Capsule 5 12/31/2023 Active Lisinopril 40 MG Oral Tablet Take 1 Tablet by mouth in the morning. In the morning.. 90 Tablet 1 02/09/2024 Active Carvedilol 25 MG Oral Tablet (Coreg)Indicatio ns:HTN, goal below 150/90 Take 1 Tablet by mouth in the morning and 1 Tablet before bedtime. With food.. 180 Tablet 1 02/09/2024 Active Indapamide 2.5 MG Oral Tablet (Lozol) Take 1 Tablet by mouth in the morning. 90 Tablet 1 02/09/2024 Active Atorvastatin Calcium 80 MG Oral Tablet (Lipitor)Indicat ions:Dyslipidemi a Take 1 Tablet by mouth daily. 90 Tablet 1 02/09/2024 Active Clopidogrel Bisulfate 75 MG Oral Tablet (pLAVix) Take 1 Tablet by mouth in the morning. 90 Tablet 3 03/24/2024 Active traZODone HCl 50 MG Oral Tablet (Desyrel) Take 1 Tablet by mouth at bedtime. 30 Tablet 5 06/09/2024 Active Mirtazapine 15 MG Oral Tablet (Remeron) Take 1 Tablet by mouth at bedtime. 30 Tablet 5 06/20/2024 Active oxyCODONE HCl 5 MG Oral Tablet (Oxy IR)Indications:M etastatic malignant neoplasm, unspecified site (HCC) Take 1 Tablet by mouth every 4 hours as needed for Pain, Severe. 120 Tablet 07/05/2024 Active Ondansetron HCl 4 MG Oral TabletIndication s:Nausea Take 1 Tablet by mouth every 6 hours as needed for Nausea. 30 Tablet 07/12/2024 Active documented as of this encounter (statuses as of 07/13/2024) Active Problems Problem Noted Date Diagnosed Date Dyslipidemia 05/19/2018 Coronary artery disease invo lving [place] coronary artery of [place] heart 05/19/2018 Prediabetes 10/13/2017 Overview: Per Prediabetes protocol #1 Old [place] (myocardial infarction) 06/03/2017 History of bladder cancer 03/24/2017 HTN, goal below 140/90 01/05/2013 Macular puckering 11/10/2012 Nevus, 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/10/2012 documented as of this encounter (statuses as of 07/13/2024) Resolved Problems Problem Noted Date Diagnosed Date Resolved Date Atherosclerotic heart diseas e of [place] coronary artery with other forms of angina pectoris 08/12/2018 10/24/[address] elevation myocardia l infarction (STEMI) involving right coronary artery 05/19/2018 07/23/2018 Malignant neoplasm of latera l wall of urinary bladder 09/21/2017 10/22/2018 HTN, goal below 150/90 06/03/201705/19 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 BPH with obstruction/lower u rinary tract symptoms 11/04/2014 12/22/2014 Overview (11/04/2014): S/P TUVP on 09/19/14. Right inguinal hernia 06/27/20132016 NSTEMI (non-ST elevated myoc ardial infarction) 01/05/2013 03/24/2017 LIPOMA SKIN NEC 05/07/2004 03/24/2017 documented as of this encounter (statuses as of 07/13/2024) Immunizations Name Administration Dates Next Due Pneumococcal Conjugate Vacc, 13 Valent (Prevnar) 07/03/2015 Pneumococcal Polysaccharide PPV23 (Pneumovax) 01/05/2013 Season Influenza, Quad, PF, Adjuvanted, 65+ Yrs, IM (FLUAD) 11/05/2020 Seasonal Influenza Vac., MDV , IM, 0.5 mL (Fluzone) 09/06/2014 Seasonal Influenza, PF, 6 M & above, IM , (FluLaval or Fluzone) 07/23/2018,05/19/2018(Deferred: Patient Refused),06/03/2017 Seasonal Influenza, Quadriva lent, No Preserve, IM 07/03/2015 Seasonal Influenza, Trivalen t, Adjuvanted, 65+ YRS, PF, (Fluad) 06/30/2019 TDAP (age 10 and older)(Boostrix) 12/15/2012 Varicella Zoster Vaccine (Adult) 04/29/2017 documented as of this encounter Social History Tobacco Use Types Packs/Day Years Used Date Smoking Tobacco: Every Day Cigarettes Smokeless Tobacco: Former Quit: 02/22/2015 Alcohol Use Standard Drinks/Week Comments No 0 (1 standard drink = 0.6 oz pur e alcohol) PHQ-2 Answer Date Recorded PHQ Adult Total Score 0 12/31/2023 Utilities Answer Date Recorded Do you have trouble paying y our heating, water, or electric bill? (Adult - for ages 18 years and over) Not on file 02/16/2024 Is your family able to pay t he heat, water, or electric bill? (Household - for ages 0-17 years) Not on file 02/16/2024 Does your family have access to good internet? (Household - for ages 0-17 years) Not on file 02/16/2024 Social Connections Answer Date Recorded How often do you feel lonely or isolated from those around you? (Adult - for ages 18 years and over) Not on file 02/16/2024 Sex and Gender Information Value Date Recorded Sex Assigned at Not on file Legal Sex Male 7:12 AM EST Gender Identity Not on file Sexual Orientation Not on file documented as of this encounter Miscellaneous Notes * Telephone Encounter - Anaid Gordon OSA - 07/13/2024 10:03 AM EST Attempted to reach the patient again to schedule the US Guided Thigh Mass Biopsy for GLH but no answer and Message was left to return the call. documented in this encounter Plan of Treatment Health Maintenance Due Date Last Done Comments DISCUSS TOBACCO CESSATION (REFER TO SMARTSET #4593) 1945 Adult Wellness Visit 2009 Zoster Vaccines (2 of 3) 06/24/2017 04/29/2017 DTap/Tdap Vaccines (2 - Td or Tdap) 12/15/2022 12/15/2012 COVID-19 Vaccine (1 - season) 2024 Influenza Vaccine (FLU shot) (#1) 2024 11/05/2020, 06/30/2019, 07/23/2018, Additional history exists Depression Screening 12/30/2024 12/31/2023 GFR 06/09/2025 06/09/2024, 05/0 10/2023, 07/30/2022, Additional history exists HbA1c 06/09/2025 06/09/2024, 05/0 10/2023, 07/30/2022, Additional history exists Albumin/Creatinine Ratio 12/30/2026 12/31/2023 Pneumococcal Vaccine: 65+ Years Completed 07/03/2015, 01/05/2013 HPV (Gardasil) Vaccine Aged Out No lo nger eligible based on patient's age to complete this topic Hepatitis B Vaccine Aged Out No longe r eligible based on patient's age to complete this topic MENINGOCOCCAL (MENACTRA/MENVEO) Aged Out No longer eligible based on patient's age to complete this topic documented as of this encounter Medical Devices Implanted Type Area Wire Drawing Machine Tender Device Identifier Shelf Expiration Date Model / Serial / Lot 3dmax Light Mesh Implanted:Qty: 1 on 11/01/2013 at OR [facility] Right: Groin 10/28/2018 [id number] / / [id number] 3dmax Light Mesh Implanted:Qty: 1 on 11/01/2013 at OR [facility] Left: Groin 10/28/2018 [id number] / / [id number] documented as of this encounter Advance Directives * Full Code (Latest Code Status on File) Date Activated Date Inactivated Comments 03/23/2015 9:01 AM 03/23/2015 3:17 PM This order r eflects the patients wishes and were consensually agreed upon. * Full Code Date Activated Date Inactivated Comments 09/19/2014 10:38 AM 09/19/2014 4:46 PM This order reflects the patients wishes and were consensually agreed upon. Question Answer Comments Discussion of Advance Directives occurred with: Patient Does the patient have a Living Will? No Does the patient have Health Care Power of Attor philipp? No * Full Code Date Activated Date Inactivated Comments 09/19/2014 6:31 AM 09/19/2014 10:38 AM This order reflects the patients wishes and were consensually agreed upon. Care Teams Seamstress Fitter Relationship Specialty Start Date End Date [place] [id number] PCP - General Physician Manager Lvn 03/10/24 documented as of this encounter
--- OUTSIDE RECORDS SUMMARY | 2024-07-14 23:01 | External Medical Summary | Summary of Care ---
Author Name Unknown Organization [facility] Address [address] [place] [address] Phone [phone] Care Team Providers Care Microbiology Director Name Role Phone Bhavani Zenia Charline DRISCOLL Primary Care Provider [phone] Reason for Visit * Reason Onset Date Comments Medication Refill 07/11/2024 Encounter Details Date Type Department Care Team (Late st Contact Info) Description 07/11/2024 Refill Family Practice [facility] [address] [facility] [address] Robert Michele, DO [address] [facility] [place] [facility] [address] Nausea Allergies Active Allergy Reactions Criticality Noted Date Comments Tramadol 01/25/2016 Nausea documented as of this encounter (statuses as of 07/12/2024) Medications nitroglycerin (NITROSTAT) 0.[address] 1 Tab under the tongue every 5 minutes as needed for Pain, Chest. 25 Tab 1 8 Active EQ ASPIRIN ADULT LOW DOSE 81 MG TBEC Take 1 tablet by mouth once daily 100 Tab 0 Active Terazosin HCl 2 MG Oral Capsule TAKE 1 CAPSULE BY MOUTH AT BEDTIME 90 Capsule 3 4 Active Gabapentin 300 MG Oral Capsule (Neurontin)Indic ations:DDD (degenerative disc disease), lumbar Take 1 Capsule by mouth in the morning and 1 Capsule in the evening. 60 Capsule 5 4 Active Lisinopril 40 MG Oral Tablet Take 1 Tablet by mouth in the morning. In the morning.. 90 Tablet 1 4 Active Carvedilol 25 MG Oral Tablet (Coreg)Indicatio ns:HTN, goal below 150/90 Take 1 Tablet by mouth in the morning and 1 Tablet before bedtime. With food.. 180 Tablet 1 4 Active Indapamide 2.5 MG Oral Tablet (Lozol) Take 1 Tablet by mouth in the morning. 90 Tablet 1 4 Active Atorvastatin Calcium 80 MG Oral Tablet (Lipitor)Indicat ions:Dyslipidemi a Take 1 Tablet by mouth daily. 90 Tablet 1 4 Active Clopidogrel Bisulfate 75 MG Oral Tablet (pLAVix) Take 1 Tablet by mouth in the morning. 90 Tablet 3 4 Active traZODone HCl 50 MG Oral Tablet (Desyrel) Take 1 Tablet by mouth at bedtime. 30 Tablet 5 4 Active Mirtazapine 15 MG Oral Tablet (Remeron) Take 1 Tablet by mouth at bedtime. 30 Tablet 5 4 Active oxyCODONE HCl 5 MG Oral Tablet (Oxy IR)Indications:M etastatic malignant neoplasm, unspecified site (HCC) Take 1 Tablet by mouth every 4 hours as needed for Pain, Severe. 120 Tablet 4 Active Ondansetron HCl 4 MG Oral TabletIndication s:Nausea Take 1 Tablet by mouth every 6 hours as needed for Nausea. 30 Tablet 4 Active Ondansetron HCl 4 MG Oral TabletIndication s:Nausea Take 1 Tablet by mouth every 6 hours as needed for Nausea. 30 Tablet 4 07/11/20 24 Discontinu ed(Refill) documented as of this encounter (statuses as of 07/12/2024) Active Problems Problem Noted Date Diagnosed Date Dyslipidemia 05/19/2018 Coronary artery disease invo lving [place] coronary artery of [place] heart 05/19/2018 Prediabetes 10/13/2017 Overview: Per Prediabetes protocol #1 Old [place] (myocardial infarction) 06/03/2017 History of bladder cancer 03/24/2017 HTN, goal below 140/90 01/05/2013 Macular puckering 11/10/2012 Nevus, 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/10/2012 documented as of this encounter (statuses as of 07/12/2024) Resolved Problems Problem Noted Date Diagnosed Date Resolved Date Atherosclerotic heart diseas e of [place] coronary artery with other forms of angina [...] as of this encounter (statuses as of 07/12/2024) Immunizations Name Administration Dates Next Due Pneumococcal [...] encounter Miscellaneous Notes * Telephone Encounter - Zenia Beckham PA-C - 07/12/2024 6:39 PM ESTSigned Prescriptions: Disp Refills Ondansetron HCl 4 MG Oral Tablet 30 Tab*0 Sig: Take 1 Tablet by mouth every 6 hours as needed for Nausea. Authorizing Provider: ZENIA BECKHAM Refused Prescriptions: Disp Refills Mirtazapine 15 MG Oral Tablet (Remeron) 30 Tab*5 Sig: Take 1 Tablet by mouth at bedtime. Refused By: Mavis VILLANUEVA Reason for Refusal: Too soon * Telephone Encounter - Tyree Villanueva [facility] - 07/12/2024 2:03 PM ESTPending Prescriptions: Disp Refills Ondansetron HCl 4 MG Oral Tablet 30 Tab*0 Sig: Take 1 Tablet by mouth every 6 hours as needed for Nausea. Refused Prescriptions: Disp Refills Mirtazapine 15 MG Oral Tablet (Remeron) 30 Tab*5 Sig: Take 1 Tablet by mouth at bedtime. Refused By: TYREE VILLANUEVA Reason for Refusal: Too soon * Telephone Encounter - Tyree Villanueva RPh - 07/12/2024 2:00 PM EST Please review refill request and approve if continuation of therapy is appropriate. Pending Prescriptions: Disp Refills Mirtazapine 15 MG Oral Tablet (Remeron) 30 Tab*5 Sig: Take 1 Tablet by mouth at bedtime. Ondansetron HCl 4 MG Oral Tablet 30 Tab*0 Sig: Take 1 Tablet by mouth every 6 hours as needed for Nausea. Thank you, Tyree Villanueva [facility] Clinical Pharmacist [facility] 07/12/24 2:02 PM [phone] documented in this encounter Plan of Treatment Health Maintenance Due Date Last Done Comments DISCUSS TOBACCO CESSATION (REFER TO SMARTSET #3291) 1945 Adult Wellness Visit 2009 Zoster Vaccines [...] this encounter Medical Devices Implanted Type Area Research Animal Attendant Device Identifier Shelf Expiration Date Model / Serial / Lot 3dmax Light Mesh Implanted:Qty: 1 on 11/01/2013 at OR [facility] Right: Groin 10/28/2018 [id number] / / [id number] 3dmax Light Mesh Implanted:Qty: 1 on 11/01/2013 at OR [facility] Left: Groin 10/28/2018 [id number] / / [id number] documented as of this encounter Visit Diagnoses Diagnosis Nausea Nausea alone documented in this encounter Advance Directives * Full Code [...] and were consensually agreed upon. Care Teams Microbiology Director Relationship Specialty Start Date End Date Bhavani November AMERICO [employer] [address] [place] [facility] [address] PCP - General Physician Commercial Lease Administrator 03/10/24 documented as of this encounter
--- OUTSIDE RECORDS SUMMARY | 2024-07-14 23:01 | External Medical Summary | Summary of Care ---
Author Name Unknown Organization [facility] Address [address] [address] Phone [phone] Care Team Providers Care Green End Man Name Role Phone Bhavani November AMERICO Primary Care Provider [phone] Reason for Visit * Reason Onset Date Comments Scheduling 07/13/2024 Encounter Details Date Type Department Care Team (Late st Contact Info) Description 07/13/2024 Telephone Family Practice [facility] [address] [facility] [place] [address] Bennett Slaughter III, MD 200 [place] [address] Scheduling Allergies Active Allergy Reactions Criticality Noted [...] Dyslipidemia 05/19/2018 Coronary artery disease invo lving [place] coronary artery of [place] heart 05/19/2018 Prediabetes 10/13/2017 Overview: Per Prediabetes protocol #1 Old [place] (myocardial infarction) 06/03/2017 History of bladder cancer 03/24/2017 HTN, goal below 140/90 01/05/2013 Macular puckering 11/10/2012 Nevus, 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/10/2012 documented as of this encounter (statuses as of 07/13/2024) Resolved Problems Problem Noted Date Diagnosed Date Resolved Date Atherosclerotic heart diseas e of [place] coronary artery with other forms of angina [...] Comments DISCUSS TOBACCO CESSATION (REFER TO SMARTSET #3713) 1945 Adult Wellness Visit 2009 Zoster Vaccines [...] this encounter Medical Devices Implanted Type Area Intake Man Device Identifier Shelf Expiration Date Model / Serial / Lot 3dmax Light Mesh Implanted:Qty: 1 on 11/01/2013 at OR [facility] Right: Groin 10/28/2018 [id number] / / [id number] 3dmax Light Mesh Implanted:Qty: 1 on 11/01/2013 at OR [facility] Left: Groin 10/28/2018 [id number] / / [id number] documented as of this encounter Advance Directives [...] and were consensually agreed upon. Care Teams Green End Man Relationship Specialty Start Date End Date Z[place] [address] [id number] PCP - General Physician Rug Cleaning Supervisor 03/10/24 documented as of this encounter
--- OUTSIDE RECORDS SUMMARY | 2024-07-14 23:02 | External Medical Summary | Summary of Care ---
Author Name Unknown Organization [facility] Address [address] [facility] [place] [address] Phone [phone] Care Team Providers Care Pin Inserter Name Role Phone Zenia Beckham PA-C Primary Care Provider [phone] Reason for Visit * Reason Onset Date Comments Advice 07/02/2024 Encounter Details Date Type Department Care Team (Late st Contact Info) Description 07/02/2024 Telephone Family Practice [facility] [address] [facility] [place] [address] Zenia Beckham PA-C [address] [facility] [place] [address] Advice Allergies Active Allergy Reactions Criticality Noted Date Comments Tramadol 01/25/2016 Nausea documented as of this encounter (statuses as of 07/07/2024) Medications Medication Sig Dispensed Refills Start Date End Date Status nitroglycerin (NITROSTAT) 0.[address] 1 [...] 09/15/2023 Active Gabapentin 300 MG Oral Capsule (Neurontin)Indicatio ns:DDD (degenerative disc disease), lumbar Take 1 Capsule by mouth in the morning and 1 Capsule in the evening. 60 Capsule 5 12/31/2023 Active Lisinopril 40 MG Oral Tablet Take 1 Tablet by mouth in the morning. In the morning.. 90 Tablet 1 02/09/2024 Active Carvedilol 25 MG Oral Tablet (Coreg)Indications:H TN, goal below 150/90 Take 1 Tablet by mouth in the morning and 1 Tablet before bedtime. With food.. 180 Tablet 1 02/09/2024 Active Indapamide 2.5 MG Oral Tablet (Lozol) Take 1 Tablet by mouth in the morning. 90 Tablet 1 02/09/2024 Active Atorvastatin Calcium 80 MG Oral Tablet (Lipitor)Indications :Dyslipidemia Take 1 Tablet by mouth daily. 90 [...] at bedtime. 30 Tablet 5 06/20/2024 Active Ondansetron HCl 4 MG Oral TabletIndications:Na usea Take 1 Tablet by mouth every 6 hours as needed for Nausea. 30 Tablet 06/21/2024 Active documented as of this encounter (statuses as of 07/07/2024) Active Problems Problem Noted Date Diagnosed Date Dyslipidemia 05/19/2018 Coronary artery disease invo lving [place] coronary artery of [place] heart 05/19/2018 Prediabetes 10/13/2017 Overview: Per Prediabetes protocol #1 Old [place] (myocardial infarction) 06/03/2017 History of bladder cancer 03/24/2017 HTN, goal below 140/90 01/05/2013 Macular puckering 11/10/2012 Nevus, 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/10/2012 documented as of this encounter (statuses as of 07/07/2024) Resolved Problems Problem Noted Date Diagnosed Date Resolved Date Atherosclerotic heart diseas e of [place] coronary artery with other forms of angina pectoris 08/12/2018 10/24/[address] elevation myocardia l infarction (STEMI) involving right coronary artery 05/19/2018 07/23/2018 Malignant neoplasm of latera l wall of urinary bladder 09/21/2017 10/22/2018 HTN, goal below 150/90 06/03/201705/19 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 BPH with obstruction/lower u rinary tract symptoms 11/04/2014 12/22/2014 Overview: S/P TUVP on 09/19/14. Right inguinal hernia 06/27/20132016 NSTEMI (non-ST elevated myoc ardial infarction) 01/05/2013 03/24/2017 LIPOMA SKIN NEC 05/07/2004 03/24/2017 documented as of this encounter (statuses as of 07/07/2024) Immunizations Name Administration Dates Next Due Pneumococcal [...] Recorded Sex Assigned at Not on file Gender Identity Not on file Sexual Orientation Not on file Job Start Date Occupation Industry Not on file Not on file Not on file documented as of this encounter Miscellaneous Notes * Telephone Encounter - Rufina Medellin LPN - 07/07/2024 3:49 PM EST See pt message encounters * Telephone Encounter - Amalia Byrne OSA - 07/02/2024 1:02 PM EDT Reason for patient's call: pt requesting to speak to nurse from [facility]. No answer from office. Please reach out. Thank you. documented in this encounter Plan of Treatment Health Maintenance Due Date Last Done Comments DISCUSS TOBACCO CESSATION (REFER TO SMARTSET #4962) 1945 Adult Wellness Visit 2009 Zoster Vaccines [...] this encounter Medical Devices Implanted Type Area Shop Technician Device Identifier Shelf Expiration Date Model / Serial / Lot 3dmax Light Mesh Implanted:Qty: 1 on 11/01/2013 at OR [facility] Right: Groin 10/28/2018 [id number] / / [id number] 3dmax Light Mesh Implanted:Qty: 1 on 11/01/2013 at OR [facility] Left: Groin 10/28/2018 [id number] / / [id number] documented as of this encounter Advance Directives [...] and were consensually agreed upon. Care Teams Pin Inserter Relationship Specialty Start Date End Date Bhavani Z[place] [id number] PCP - General Physician Ammonium Nitrate Neutralizer 03/10/24 documented as of this encounter
--- OUTSIDE RECORDS SUMMARY | 2024-07-14 23:02 | External Medical Summary | Summary of Care ---
Author Name Unknown Organization [facility] Address [address] [facility] [address] Phone [phone] Care Team Providers Care Proposal Director Name Role Phone Bhavani November [place] Primary Care Provider Reason for Visit * Reason Onset Date Comments Scheduling 07/01/2024 Encounter Details Date Type Department Care Team (Late st Contact Info) Description 07/01/2024 Telephone [facility] [address] [facility] [place] [address] Bennett Slaughter III, MD 200 [facility] [place] [address] Scheduling Allergies Active Allergy Reactions Criticality Noted Date Comments Tramadol 01/25/2016 Nausea documented as of this encounter (statuses as of 07/01/2024) Medications Medication Sig Dispensed Refills Start Date [...] 09/15/2023 Active Gabapentin 300 MG Oral Capsule (Neurontin)Indication s:DDD (degenerative disc disease), lumbar Take 1 Capsule by mouth in the morning and 1 Capsule in the evening. 60 Capsule 5 12/31/2023 Active Lisinopril 40 MG Oral Tablet Take 1 Tablet by mouth in the morning. In the morning.. 90 Tablet 1 02/09/2024 Active Carvedilol 25 MG Oral Tablet (Coreg)Indications:HT N, goal below 150/90 Take 1 Tablet by mouth in the morning and 1 Tablet before bedtime. With food.. 180 Tablet 1 02/09/2024 Active Indapamide 2.5 MG Oral Tablet (Lozol) Take 1 Tablet by mouth in the morning. 90 Tablet 1 02/09/2024 Active Atorvastatin Calcium 80 MG Oral Tablet (Lipitor)Indications: Dyslipidemia Take 1 Tablet by mouth daily. 90 [...] 06/20/2024 Active Ondansetron HCl 4 MG Oral TabletIndications:Lukas sea Take 1 Tablet by mouth every 6 hours as needed for Nausea. 30 Tablet 06/21/2024 Active oxyCODONE HCl 5 MG Oral Tablet (Oxy IR)Indications:Metast atic malignant neoplasm, unspecified site (HCC) Take 1 Tablet by mouth every 4 hours as needed for Pain, Severe. 30 Tablet 06/23/2024 Active documented as of this encounter (statuses as of 07/01/2024) Active Problems Problem Noted Date Diagnosed Date Dyslipidemia 05/19/2018 Coronary artery disease invo lving [place] coronary artery of [place] heart 05/19/2018 Prediabetes 10/13/2017 Overview: Per Prediabetes protocol #1 Old [place] (myocardial infarction) 06/03/2017 History of bladder cancer 03/24/2017 HTN, goal below 140/90 01/05/2013 Macular puckering 11/10/2012 Nevus, 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/10/2012 documented as of this encounter (statuses as of 07/01/2024) Resolved Problems Problem Noted Date Diagnosed Date Resolved Date Atherosclerotic heart diseas e of [place] coronary artery with other forms of angina [...] as of this encounter (statuses as of 07/01/2024) Immunizations Name Administration Dates Next Due Pneumococcal [...] Telephone Encounter - Anaid Gordon OSA - 07/01/2024 12:01 PM EDT Called patient and spoke to the Portia to schedule the Us Guided Right Thigh Mass Biopsy for GLH but she said that the patient has an appt on 07/[address] Ashley and will wait and seewhat the doctor there has to say about the mass and will see what he thinks before she wants to schedule for Willy. documented in this encounter Plan of Treatment Upcoming Encounters Date Type Department Care Team (Late st Contact Info) Description 07/01/2024 3:30 PM EDT Office Visit Urology Miriam Johnson [address] [place] [address] [place] [address] Arron Ashley MD [address] [place] [address] Health Maintenance Due Date Last Done Comments DISCUSS TOBACCO CESSATION (REFER TO SMARTSET #0358) 1945 Adult Wellness Visit 2009 Zoster Vaccines (2 of 3) 06/24/2017 04/29/2017 DTap/Tdap Vaccines (2 - Td or Tdap) 12/15/2022 12/15/2012 COVID-19 Vaccine ( season) 2024 Influenza Vaccine (FLU shot) (#1) [...] this encounter Medical Devices Implanted Type Area Security Support Analyst Device Identifier Shelf Expiration Date Model / Serial / Lot 3dmax Light Mesh Implanted:Qty: 1 on 11/01/2013 at OR [facility] Right: Groin 10/28/2018 [id number] / / [id number] 3dmax Light Mesh Implanted:Qty: 1 on 11/01/2013 at OR [facility] Left: Groin 10/28/2018 [id number] / / [id number] documented as of this encounter Advance Directives [...] and were consensually agreed upon. Care Teams Proposal Director Relationship Specialty Start Date End Date BhavaniNovember Charline, [facility] [address] [place], [place] [address] [place], [place] [address] PCP - General Physician Head Animal Trainer 03/10/24 documented as of this encounter
--- OUTSIDE RECORDS SUMMARY | 2024-07-14 23:02 | External Medical Summary | Summary of Care ---
Author Name Unknown Organization [facility] Address [address] [facility] [place] [address] Phone [phone] Care Team Providers Care Rounding Machine Operator Name Role Phone Bhavani November [place] Primary Care Provider [phone] Reason for Visit * Reason Onset Date Comments Referral 07/01/2024 Urology Encounter Details Date Type Department Care Team (Late st Contact Info) Description 07/01/2024 Telephone Urology Miriam Johnson [address] [facility] [address] [place] [address] Arron Ashley MD [address] [place] [address] Referral (Urology ) Allergies Active Allergy Reactions Criticality Noted Date Comments Tramadol 01/25/2016 Nausea documented as of this encounter (statuses as of 07/04/2024) Medications Medication Sig Dispensed Refills Start Date [...] 09/15/2023 Active Gabapentin 300 MG Oral Capsule (Neurontin)Indicat ions:DDD (degenerative disc disease), lumbar Take 1 Capsule by mouth in the morning and 1 Capsule in the evening. 60 Capsule 5 12/31/2023 Active Lisinopril 40 MG Oral Tablet Take 1 Tablet by mouth in the morning. In the morning.. 90 Tablet 1 02/09/2024 Active Carvedilol 25 MG Oral Tablet (Coreg)Indications :HTN, goal below 150/90 Take 1 Tablet by mouth in the morning and 1 Tablet before bedtime. With food.. 180 Tablet 1 02/09/2024 Active Indapamide 2.5 MG Oral Tablet (Lozol) Take 1 Tablet by mouth in the morning. 90 Tablet 1 02/09/2024 Active Atorvastatin Calcium 80 MG Oral Tablet (Lipitor)Indicatio ns:Dyslipidemia Take 1 Tablet by mouth daily. 90 [...] 06/20/2024 Active Ondansetron HCl 4 MG Oral TabletIndications: Nausea Take 1 Tablet by mouth every 6 hours as needed for Nausea. 30 Tablet 06/21/2024 Active oxyCODONE HCl 5 MG Oral Tablet (Oxy IR)Indications:Met astatic malignant neoplasm, unspecified site (HCC) Take 1 Tablet by mouth every 4 hours as needed for Pain, Severe. 30 Tablet 06/23/2024 07/02/2024 Discontinued (Refill) documented as of this encounter (statuses as of 07/04/2024) Active Problems Problem Noted Date Diagnosed Date Dyslipidemia 05/19/2018 Coronary artery disease invo lving [place] coronary artery of [place] heart 05/19/2018 Prediabetes 10/13/2017 Overview: Per Prediabetes protocol #1 Old [place] (myocardial infarction) 06/03/2017 History of bladder cancer 03/24/2017 HTN, goal below 140/90 01/05/2013 Macular puckering 11/10/2012 Nevus, 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/10/2012 documented as of this encounter (statuses as of 07/04/2024) Resolved Problems Problem Noted Date Diagnosed Date Resolved Date Atherosclerotic heart diseas e of [place] coronary artery with other forms of angina [...] as of this encounter (statuses as of 07/04/2024) Immunizations Name Administration Dates Next Due Pneumococcal [...] Telephone Encounter - Rufina Medellin LPN - 07/04/2024 1:52 PM EST See pt message encounter from 07/02 - oncology referral was requested. Oncology referral was placed on 06/27 * Telephone Encounter - Bennett Slaughter III, MD - 07/04/2024 8:12 AM EST Call please all day interested in seeing Oncology to see if there is any options Oncology will needtissue diagnoses for recommendations-could consider a Palliative Medicine consult * Telephone Encounter - Capri Pierre PA-C - 07/01/2024 4:30 PM EDT Noted thanks! * Telephone Encounter - Clarisa Weeks LPN - 07/01/2024 3:42 PM EDT Patient was scheduled for an appt with Dr Ashley today for evaluation of bladder cancer with metastatics, however unfortunately the provider was called to the operating for an emergency. Patient and spouse were called to the hotel front desk clerk and asked to reschedule with Capri Pierre early next week per dr Ashley. Patients became very upset and asked why the patient was even here? I advised that he was referred for evaluation of bladder cancer and she said that they didn't want any testing or surgery for this because "it is too far gone" they just want to know how to contain the cancer. Advised that the patient would be evaluated by urology and further treatment options would be discussed whichcould include surgery. We did offer an appointment with Capri Pierre to discuss treatment options next Thursday however they declined and said they would call back if they decided to be seen. I strongly encouraged the patient and his to contact Dr Sandy office to discuss alternative referrals. documented in this encounter Plan of Treatment [...] this encounter Medical Devices Implanted Type Area Clinical Manager Device Identifier Shelf Expiration Date Model / Serial / Lot 3dmax Light Mesh Implanted:Qty: 1 on 11/01/2013 at OR [facility] Right: Groin 10/28/2018 [id number] / / [id number] 3dmax Light Mesh Implanted:Qty: 1 on 11/01/2013 at OR [facility] Left: Groin 10/28/2018 [id number] / / [id number] documented as of this encounter Advance Directives [...] and were consensually agreed upon. Care Teams Rounding Machine Operator Relationship Specialty Start Date End Date Bhavani November [place] [place] [address] PCP - General Physician Sheet Metal Assembler 03/10/24 documented as of this encounter
--- OUTSIDE RECORDS SUMMARY | 2024-07-14 23:02 | External Medical Summary | Summary of Care ---
Author Name Unknown Organization [facility] Address [address] [facility] [place] [address] Phone [phone] Care Team Providers Care Sew On Operator Name Role Phone Bhavani November [place] Primary Care Provider [phone] Reason for Visit * Reason Onset Date Comments Referral 07/01/2024 Urology Encounter Details Date Type Department Care Team (Late st Contact Info) Description 07/01/2024 Telephone Urology Miriam Johnson [address] [facility] [address] [address] Arron Ashley MD [address] [place] [address] Referral (Urology ) Allergies Active Allergy Reactions [...] Dyslipidemia 05/19/2018 Coronary artery disease invo lving [place] coronary artery of [place] heart 05/19/2018 Prediabetes 10/13/2017 Overview: Per Prediabetes protocol #1 Old [place] (myocardial infarction) 06/03/2017 History of bladder cancer 03/24/2017 HTN, goal below 140/90 01/05/2013 Macular puckering 11/10/2012 Nevus, 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/10/2012 documented as of this encounter (statuses as of 07/01/2024) Resolved Problems Problem Noted Date Diagnosed Date Resolved Date Atherosclerotic heart diseas e of [place] coronary artery with other forms of angina [...] encounter Miscellaneous Notes * Telephone Encounter - Capri Pierre PA-C - 07/01/2024 4:30 PM EDT Noted thanks! * Telephone Encounter - Clarisa Weeks LPN - 07/01/2024 3:42 PM EDT Patient was scheduled for an appt with Dr Ashley today for evaluation of bladder cancer with metastatics, however unfortunately the provider was called to the operating for an emergency. Patient and spouse were called to the front office java developer and asked to reschedule with Capri Pierre [...] Comments DISCUSS TOBACCO CESSATION (REFER TO SMARTSET #3299) 1945 Adult Wellness Visit 2009 Zoster Vaccines [...] this encounter Medical Devices Implanted Type Area Cement Sack Breaker Device Identifier Shelf Expiration Date Model / Serial / Lot 3dmax Light Mesh Implanted:Qty: 1 on 11/01/2013 at OR [facility] Right: Groin 10/28/2018 [id number] / / [id number] 3dmax Light Mesh Implanted:Qty: 1 on 11/01/2013 at OR [facility] Left: Groin 10/28/2018 [id number] / / [id number] documented as of this encounter Advance Directives [...] and were consensually agreed upon. Care Teams Sew On Operator Relationship Specialty Start Date End Date Zenia Beckham PA-C [address] [place] [address] PCP - General Physician Excavating Machine Operator 03/10/24 documented as of this encounter
--- OUTSIDE RECORDS SUMMARY | 2024-07-14 23:02 | External Medical Summary | Summary of Care ---
Author Name Unknown Organization [facility] Address [address] [facility] [place] [address] Phone [phone] Care Team Providers Care Lumber Checker Name Role Phone Bhavani November [place] Primary Care Provider [phone] Reason for Visit * Reason Onset Date Comments Medication Refill 07/06/2024 Encounter Details Date Type Department Care Team (Late st Contact Info) Description 07/06/2024 Refill Family Practice [facility] 200 [facility] [place] [address] Bennett Slaughter III, MD 200 [facility] [place] [address] Metastatic malignant neoplasm, unspecified site (HCC) Allergies Active Allergy Reactions Criticality Noted Date [...] for Pain, Severe. 120 Tablet 07/05/2024 Active documented as of this encounter (statuses as of 07/07/2024) Active Problems Problem Noted Date Diagnosed Date Dyslipidemia 05/19/2018 Coronary artery disease invo lving [place] coronary artery of [place] heart 05/19/2018 Prediabetes 10/13/2017 Overview: Per Prediabetes protocol #1 Old [place] (myocardial infarction) 06/03/2017 History of bladder cancer 03/24/2017 HTN, goal below 140/90 01/05/2013 Macular puckering 11/10/2012 Nevus, 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/10/2012 documented as of this encounter (statuses as of 07/07/2024) Resolved Problems Problem Noted Date Diagnosed Date Resolved Date Atherosclerotic heart diseas e of [place] coronary artery with other forms of angina [...] encounter Miscellaneous Notes * Telephone Encounter - Lakshmi Talley RPh - 07/07/2024 9:42 AM EST Refused Prescriptions: Disp Refills oxyCODONE HCl 5 MG Oral Tablet (Oxy IR) 120 Ta*0 Sig: Take 1 Tablet by mouth every 4 hours as needed for Pain, Severe.Refused By: LAKSHMI TALLEY for Refusal: Duplicate Request documented in this encounter Plan of Treatment Health Maintenance Due Date Last Done Comments DISCUSS TOBACCO CESSATION (REFER TO SMARTSET #3225) 1945 Adult Wellness Visit 2009 Zoster Vaccines [...] this encounter Medical Devices Implanted Type Area Communication Arts Lecturer Device Identifier Shelf Expiration Date Model / Serial / Lot 3dmax Light Mesh Implanted:Qty: 1 on 11/01/2013 at OR [facility] Right: Groin 10/28/2018 [id number] / / [id number] 3dmax Light Mesh Implanted:Qty: 1 on 11/01/2013 at OR [facility] Left: Groin 10/28/2018 [id number] / / [id number] documented as of this encounter Visit Diagnoses Diagnosis Metastatic malignant neoplasm, unspecified site (HCC) documented in this encounter Advance Directives * [...] and were consensually agreed upon. Care Teams Lumber Checker Relationship Specialty Start Date End Date Zenia Beckham PA-C [address] [place] [address] PCP - General Physician Commercial Print Salesman 03/10/24 documented as of this encounter
--- OUTSIDE RECORDS SUMMARY | 2024-07-14 23:02 | External Medical Summary | Summary of Care ---
Author Name Unknown Organization [facility] Address [address] [facility] [place] [address] Phone [phone] Care Team Providers Care Cytology Manager Name Role Phone Bhavani November [place] Primary Care Provider [phone] Reason for Visit * Reason Onset Date Comments Referral 07/01/2024 Urology Encounter Details Date Type Department Care Team (Late st Contact Info) Description 07/01/2024 Telephone Urology Miriam Johnson [address] [facility] [address] [address] [address] Arron Ashley MD [address] [address] Referral (Urology ) Allergies Active Allergy Reactions [...] Dyslipidemia 05/19/2018 Coronary artery disease invo lving [place] coronary artery of [place] heart 05/19/2018 Prediabetes 10/13/2017 Overview: Per Prediabetes protocol #1 Old [place] (myocardial infarction) 06/03/2017 History of bladder cancer 03/24/2017 HTN, goal below 140/90 01/05/2013 Macular puckering 11/10/2012 Nevus, 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/10/2012 documented as of this encounter (statuses as of 07/01/2024) Resolved Problems Problem Noted Date Diagnosed Date Resolved Date Atherosclerotic heart diseas e of [place] coronary artery with other forms of angina [...] encounter Miscellaneous Notes * Telephone Encounter - Clarisa Weeks LPN - 07/01/2024 3:42 PM EDT Patient was scheduled for an appt with Dr Ashley today for evaluation of bladder cancer with metastatics, however unfortunately the provider was called to the operating for an emergency. Patient and spouse were called to the front office attendant and asked to reschedule with Capri Pierre [...] this encounter Medical Devices Implanted Type Area Soft Water Mechanic Device Identifier Shelf Expiration Date Model / Serial / Lot 3dmax Light Mesh Implanted:Qty: 1 on 11/01/2013 at OR [facility] Right: Groin 10/28/2018 [id number] / / [id number] 3dmax Light Mesh Implanted:Qty: 1 on 11/01/2013 at OR [facility] Left: Groin 10/28/2018 [id number] / / [id number] documented as of this encounter Advance Directives [...] and were consensually agreed upon. Care Teams Cytology Manager Relationship Specialty Start Date End Date Bhavani November [place] [address] [place] [address] PCP - General Physician Software Engineer Mobile 03/10/24 documented as of this encounter
--- OUTSIDE RECORDS SUMMARY | 2024-07-14 23:02 | External Medical Summary | Summary of Care ---
Author Name Unknown Organization [facility] Address [address] [facility] [address] Phone [phone] Care Team Providers Care Laundry Route Driver Name Role Phone Bhavani November [place] Primary Care Provider [phone] Reason for Visit * Reason Onset Date Comments Scheduling 07/01/2024 Encounter Details Date Type Department Care Team (Late st Contact Info) Description 07/01/2024 Telephone Family Practice [facility] 200 [facility] [place] [address] Bennett Slaughter III, MD 200 [facility] [place] [address] Scheduling Allergies Active Allergy Reactions Criticality Noted [...] Dyslipidemia 05/19/2018 Coronary artery disease invo lving [place] coronary artery of [place] heart 05/19/2018 Prediabetes 10/13/2017 Overview: Per Prediabetes protocol #1 Old [place] (myocardial infarction) 06/03/2017 History of bladder cancer 03/24/2017 HTN, goal below 140/90 01/05/2013 Macular puckering 11/10/2012 Nevus, 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/10/2012 documented as of this encounter (statuses as of 07/01/2024) Resolved Problems Problem Noted Date Diagnosed Date Resolved Date Atherosclerotic heart diseas e of [place] coronary artery with other forms of angina [...] [address] [place] [address] [address] Arron Ashley MD [address] [place] [address] Health Maintenance Due Date Last Done Comments DISCUSS TOBACCO CESSATION (REFER TO SMARTSET #9586) 1945 Adult Wellness Visit 2009 Zoster Vaccines [...] this encounter Medical Devices Implanted Type Area Early Morning Device Identifier Shelf Expiration Date Model / Serial / Lot 3dmax Light Mesh Implanted:Qty: 1 on 11/01/[address] [facility] Right: Groin 10/28/2018 [id number] / / [id number] 3dmax Light Mesh Implanted:Qty: 1 on 11/01/[address] [facility] Left: Groin 10/28/2018 [id number] / / [id number] documented as of this encounter Advance Directives [...] and were consensually agreed upon. Care Teams Laundry Route Driver Relationship Specialty Start Date End Date BhavaniNovember Charline, [facility] [address] [place], [place] [address] [address] [place], [place] [address] PCP - General Physician Whizzer 03/10/24 documented as of this encounter
--- OUTSIDE RECORDS SUMMARY | 2024-07-14 23:02 | External Medical Summary | Summary of Care ---
Author Name Unknown Organization [facility] Address [address] [place] [place] [address] Phone [phone] Care Team Providers Care Mat Weaver Name Role Phone Bhavani November [place] Primary Care Provider Reason for Visit * Reason Onset Date Comments Medication Refill 07/11/2024 Encounter Details Date Type Department Care Team (Late st Contact Info) Description 07/11/2024 Refill Family Practice [facility] [place] 200 [facility] [place] [address] Bennett Slaughter III, MD 200 [facility] [place] [address] Metastatic malignant neoplasm, unspecified site (HCC) Allergies [...] 06/20/2024 Active Ondansetron HCl 4 MG Oral TabletIndication [...] 10/13/2017 Overview: Per Prediabetes protocol #1 Old [place] (myocardial infarction) 06/03/2017 History of bladder cancer [...] encounter Miscellaneous Notes * Telephone Encounter - Celina oGff RPh - 07/12/2024 1:22 PM ESTRefused Prescriptions: Disp Refills oxyCODONE HCl 5 MG Oral Tablet (Oxy IR) 120 Ta*0 Sig: Take 1 Tablet by mouth every 4 hours as needed for Pain, Severe.Refused By: CELINA GOFF for Refusal: Too soon * Telephone Encounter - Celina Goff RPh - 07/12/2024 1:21 PM EST Filled 07/11 for 20 days. Thanks, Celina Goff Clinical Pharmacist [facility] [phone] 07/12/2024, 1:22 PM documented in this encounter Plan of Treatment Health Maintenance Due Date Last Done Comments DISCUSS TOBACCO CESSATION (REFER TO SMARTSET #3352) 1945 Adult Wellness Visit 2009 Zoster Vaccines [...] this encounter Medical Devices Implanted Type Area Envelope Addresser Device Identifier Shelf Expiration Date Model / Serial / Lot 3dmax Light Mesh Implanted:Qty: 1 on 11/01/2013 at OR [facility] Right: Groin 10/28/2018 [id number] / / [id number] 3dmax Light Mesh Implanted:Qty: 1 on 11/01/2013 at OR [facility] Left: Groin 10/28/2018 [id number] / / [id number] documented as of this encounter Visit Diagnoses [...] and were consensually agreed upon. Care Teams Mat Weaver Relationship Specialty Start Date End Date Bhavani November [place] [place] [address] PCP - General Physician Information Consultant 03/10/24 documented as of this encounter
--- OUTSIDE RECORDS SUMMARY | 2024-07-14 23:02 | External Medical Summary | Summary of Care ---
Author Name Unknown Organization [facility] Address [address] [facility] [place] [address] Phone [phone] Care Team Providers Care Cager Operator Name Role Phone Bhavani November AMERICO Primary Care Provider [phone] Reason for Visit * Reason Onset Date Comments Referral 07/01/2024 Urology Encounter Details Date Type Department Care Team (Late st Contact Info) Description 07/01/2024 Telephone Urology Miriam Johnson [address] [facility] [address] [place] [address] Arron Ashley MD [address] [place] [address] Referral (Urology ) Allergies Active Allergy Reactions [...] Dyslipidemia 05/19/2018 Coronary artery disease invo lving [place] coronary artery of [place] heart 05/19/2018 Prediabetes 10/13/2017 Overview: Per Prediabetes protocol #1 Old [place] (myocardial infarction) 06/03/2017 History of bladder cancer 03/24/2017 HTN, goal below 140/90 01/05/2013 Macular puckering 11/10/2012 Nevus, 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/10/2012 documented as of this encounter (statuses as of 07/04/2024) Resolved Problems Problem Noted Date Diagnosed Date Resolved Date Atherosclerotic heart diseas e of [place] coronary artery with other forms of angina [...] encounter Miscellaneous Notes * Telephone Encounter - Bennett Slaughter III, [...] and spouse were called to the front attendant and asked to reschedule with Capri [...] We did offer an appointment with Capri Smith to discuss treatment options next Thursday however they declined and said they would call back if they decided to be seen. I strongly encouraged the patient and his to contact Dr Sandy office to discuss alternative referrals. documented in this encounter Plan of Treatment Health Maintenance Due Date Last Done Comments DISCUSS TOBACCO CESSATION (REFER TO SMARTSET #3290) 1945 Adult Wellness Visit 2009 Zoster Vaccines [...] this encounter Medical Devices Implanted Type Area Net Lead Developer Device Identifier Shelf Expiration Date Model / Serial / Lot 3dmax Light Mesh Implanted:Qty: 1 on 11/01/2013 at OR [facility] Right: Groin 10/28/2018 [id number] / / [id number] 3dmax Light Mesh Implanted:Qty: 1 on 11/01/2013 at OR [facility] Left: Groin 10/28/2018 [id number] / / [id number] documented as of this encounter Advance Directives [...] and were consensually agreed upon. Care Teams Cager Operator Relationship Specialty Start Date End Date Bhavani Zenia AMERICO Olivier [address] [place] [address] PCP - General Physician Data Base Administrator 03/10/24 documented as of this encounter
--- OUTSIDE RECORDS SUMMARY | 2024-07-14 23:02 | External Medical Summary | Summary of Care ---
Author Name Unknown Organization [facility] Address [address] [facility] [address] Phone [phone] Care Team Providers Care Data Communications Software Consultant Name Role Phone Bhavani November AMERICO Primary Care Provider [phone] Reason for Visit * Reason Onset Date Comments Forms Request 06/24/2024 Encounter Details Date Type Department Care Team (Late st Contact Info) Description 06/24/2024 Telephone Family Practice [facility] 200 [place] [address] Bennett Slaughter III, MD 200 [place] [address] Forms Request Allergies Active Allergy Reactions Criticality Noted Date Comments Tramadol 01/25/2016 Nausea documented as of this encounter (statuses as of 06/29/2024) Medications Medication Sig Dispensed Refills Start Date [...] as of this encounter (statuses as of 06/29/2024) Active Problems Problem Noted Date Diagnosed Date Dyslipidemia 05/19/2018 Coronary artery disease invo lving [place] coronary artery of [place] heart 05/19/2018 Prediabetes 10/13/2017 Overview: Per Prediabetes protocol #1 Old [place] (myocardial infarction) 06/03/2017 History of bladder cancer 03/24/2017 HTN, goal below 140/90 01/05/2013 Macular puckering 11/10/2012 Nevus, 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/10/2012 documented as of this encounter (statuses as of 06/29/2024) Resolved Problems Problem Noted Date Diagnosed Date Resolved Date Atherosclerotic heart diseas e of [place] coronary artery with other forms of angina [...] as of this encounter (statuses as of 06/29/2024) Immunizations Name Administration Dates Next Due Pneumococcal [...] encounter Miscellaneous Notes * Telephone Encounter - Ute De Souza OSA - 06/29/2024 1:24 PM EDT Nursing staff is going to be following up with provider and then will advise. * Telephone Encounter - Bennett Slaughter III, MD - 06/25/2024 11:50 AM EDT Needs med use agreement for willy vinson * Telephone Encounter - Ute De Souza OSA - 06/24/2024 4:11 PM EDT Patient's and daughter was in office today and was coming to leaf size picker the form that you stated would be available for leaf size picker and ready for them, can you please advise what forms was needed and give them to me and I can get them ready on Thursday for them to leaf size picker. documented in this encounter Plan of Treatment Upcoming Encounters Date Type Department Care Team (Late st Contact Info) Description 07/01/2024 3:30 PM EDT Office Visit Urology Miriam Johnson [address] [place] [address] [place] [address] Arron Ashley MD [address] [place] [address] Health Maintenance Due Date Last Done Comments DISCUSS TOBACCO CESSATION (REFER TO SMARTSET #5307) 1945 Adult Wellness Visit 2009 Zoster Vaccines [...] this encounter Medical Devices Implanted Type Area Care Management Associate Device Identifier Shelf Expiration Date Model / Serial / Lot 3dmax Light Mesh Implanted:Qty: 1 on 11/01/2013 at OR [facility] Right: Groin 10/28/2018 [id number] / / [id number] 3dmax Light Mesh Implanted:Qty: 1 on 11/01/2013 at OR [facility] Left: Groin 10/28/2018 [id number] / / [id number] documented as of this encounter Advance Directives [...] and were consensually agreed upon. Care Teams Data Communications Software Consultant Relationship Specialty Start Date End Date Bhavani Zenia AMERICO Olivier [address] [place] [address] [place] [address] PCP - General Physician Automobile Brakes Bonder 03/10/24 documented as of this encounter
--- OUTSIDE RECORDS SUMMARY | 2024-07-14 23:03 | External Medical Summary | Summary of Care ---
Author Name Unknown Organization [facility] Address [address] [facility] [address] Phone [phone] Care Team Providers Care Aquatics Coordinator Name Role Phone Bhavani November AMERICO Primary Care Provider [phone] Reason for Visit * Reason Onset Date Comments Forms Request 06/24/2024 Encounter Details Date Type Department Care Team (Late st Contact Info) Description 06/24/2024 Telephone Family Practice [facility] 200 [facility] [place] [address] Bnenett Slaughter III, MD 200 [place] [address] Forms Request Allergies Active Allergy Reactions Criticality Noted Date Comments Tramadol 01/25/2016 Nausea documented as of this encounter (statuses as of 06/25/2024) Medications Medication Sig Dispensed Refills Start Date [...] as of this encounter (statuses as of 06/25/2024) Active Problems Problem Noted Date Diagnosed Date Dyslipidemia 05/19/2018 Coronary artery disease invo lving [place] coronary artery of [place] heart 05/19/2018 Prediabetes 10/13/2017 Overview: Per Prediabetes protocol #1 Old [place] (myocardial infarction) 06/03/2017 History of bladder cancer 03/24/2017 HTN, goal below 140/90 01/05/2013 Macular puckering 11/10/2012 Nevus, 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/10/2012 documented as of this encounter (statuses as of 06/25/2024) Resolved Problems Problem Noted Date Diagnosed Date Resolved Date Atherosclerotic heart diseas e of [place] coronary artery with other forms of angina [...] as of this encounter (statuses as of 06/25/2024) Immunizations Name Administration Dates Next Due Pneumococcal [...] in office today and was coming to pickling machine operator the form that you stated would be available for pickling machine operator and ready for them, can you please advise what forms was needed and give them to me and I can get them ready on Thursday for them to pickling machine operator. documented in this encounter Plan of Treatment Upcoming Encounters Date Type Department Care Team (Late st Contact Info) Description 07/07/2024 1:00 PM EST Office Visit [facility] [address] [place] [address] Jennifer Olivarez MD [address] [place] [address] Health Maintenance Due Date Last Done Comments [...] this encounter Medical Devices Implanted Type Area Cable Swager Device Identifier Shelf Expiration Date Model / Serial / Lot 3dmax Light Mesh Implanted:Qty: 1 on 11/01/2013 at OR [facility] Right: Groin 10/28/2018 [id number] / / [id number] 3dmax Light Mesh Implanted:Qty: 1 on 11/01/2013 at OR [facility] Left: Groin 10/28/2018 [id number] / / [id number] documented as of this encounter Advance Directives [...] and were consensually agreed upon. Care Teams Aquatics Coordinator Relationship Specialty Start Date End Date Bhavani November AMERICO Olivier [address] [facility] [place] [place] [address] PCP - General Physician Photo Mask Processor 03/10/24 documented as of this encounter
--- OUTSIDE RECORDS SUMMARY | 2024-07-14 23:03 | External Medical Summary | Summary of Care ---
Author Name Unknown Organization [facility] Address [address] [place] [facility] [place] [address] Phone [phone] Care Team Providers Care Statistical Geneticist Name Role Phone Zenia Beckham PA-C Primary Care Provider [phone] Reason for Visit * Reason Onset Date Comments Appointment 06/15/2024 Encounter Details Date Type Department Care Team (Late st Contact Info) Description 06/15/2024 Telephone Family Practice [facility] 200 [facility] [place] [address] Zenia Beckham PA-C 200 [facility] [place] [address] Appointment Allergies Active Allergy Reactions Criticality Noted Date Comments Tramadol 01/25/2016 Nausea documented as of this encounter (statuses as of 06/15/2024) Medications Medication Sig Dispensed Refills Start Date [...] at bedtime. 30 Tablet 5 06/09/2024 Active documented as of this encounter (statuses as of 06/15/2024) Active Problems Problem Noted Date Diagnosed Date Dyslipidemia 05/19/2018 Coronary artery disease invo lving [place] coronary artery of [place] heart 05/19/2018 Prediabetes 10/13/2017 Overview: Per Prediabetes protocol #1 Old [place] (myocardial infarction) 06/03/2017 History of bladder cancer 03/24/2017 HTN, goal below 140/90 01/05/2013 Macular puckering 11/10/2012 Nevus, 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/10/2012 documented as of this encounter (statuses as of 06/15/2024) Resolved Problems Problem Noted Date Diagnosed Date Resolved Date Atherosclerotic heart diseas e of [place] coronary artery with other forms of angina [...] as of this encounter (statuses as of 06/15/2024) Immunizations Name Administration Dates Next Due Pneumococcal [...] encounter Miscellaneous Notes * Telephone Encounter - Herminia Caldwell PHARM Tech - 06/15/2024 10:41 AM EDT Pt's calling for a an earlier appt on 06/23/24. This was last seen by Radiology. Transfer to specialty refill line. Thank you, Herminia Caldwell [facility] Worker [facility] 06/15/2024,10:42 AM documented in this encounter Plan of Treatment Upcoming Encounters Date Type Department Care Team (Late st Contact Info) Description 06/23/2024 7:15 PM EDT Appointment Radiology, [address] [place] [address] Health Maintenance Due Date Last Done Comments DISCUSS TOBACCO CESSATION (REFER TO SMARTSET #4136) 1945 Adult Wellness Visit 2009 Zoster Vaccines (2 of 3) 06/24/2017 04/29/2017 DTap/Tdap Vaccines (2 - Td or Tdap) 12/15/2022 12/15/2012 COVID-19 Vaccine ( - season) 2024 Influenza Vaccine (FLU shot) [...] this encounter Medical Devices Implanted Type Area Microfiche Duplicator Device Identifier Shelf Expiration Date Model / Serial / Lot 3dmax Light Mesh Implanted:Qty: 1 on 11/01/2013 at OR [facility] Right: Groin 10/28/2018 [id number] / / [id number] 3dmax Light Mesh Implanted:Qty: 1 on 11/01/2013 at OR [facility] Left: Groin 10/28/2018 [id number] / / [id number] documented as of this encounter Advance Directives [...] and were consensually agreed upon. Care Teams Statistical Geneticist Relationship Specialty Start Date End Date Zenia Beckham PA-C [address] [place] [address] PCP - General Physician Final Inspector Motorcyles 03/10/24 documented as of this encounter
--- OUTSIDE RECORDS SUMMARY | 2024-07-14 23:03 | External Medical Summary ---
Author Name Unknown Address Unknown Organization K01:[facility] - [address] [place] [address] Laboratory Report Ordering Provider Test Date Status INES PRADO III 06/13/2024 09:51:05 Final Observation Date Value Abnormality Reference (Units ) Status Iron 06/13/2024 09:51:05 45 45-176 (ug/dL) Final Iron-binding capacity 06/13/2024 09:51:05 226 Below low normal 250-425 (ug/dL) Final Transferrin Sat % 06/13/2024 09:51:05 20 15-55 (%) Final Performing Location [facility] - [address] [place] [address]
--- OUTSIDE RECORDS SUMMARY | 2024-07-14 23:03 | External Medical Summary ---
Author Name Unknown Address Unknown Organization K01:[facility] - [address] [place] [address] Laboratory Report Ordering Provider Test Date Status INES PRADO III 06/13/2024 09:51:05 Final Observation Date Value Abnormality Reference (Units ) Status Ferritin 06/13/2024 09:51:05 462 Above high normal 30 -400 (ng/mL) Final Performing Location [facility] - [address] [place] [address]
--- OUTSIDE RECORDS SUMMARY | 2024-07-14 23:03 | External Medical Summary | Summary of Care ---
Author Name Unknown Organization [facility] Address [address] [facility] [address] Phone [phone] Care Team Providers Care Dice Person Name Role Phone Bhavani November AMERICO Primary Care Provider [phone] Reason for Visit * Reason Comments Outpatient Testing Encounter Details Date Type Department Care Team (Late st Contact Info) Description 06/13/2024 9:50 AM EDT Laboratory Laboratory [facility] [address] [place] [address] [facility] [address] [place] [address] Anemia, unspecified type Allergies Active Allergy Reactions Criticality Noted Date Comments Tramadol 01/25/2016 Nausea documented as of this encounter (statuses as of 06/13/2024) Medications Medication Sig Dispensed Refills Start Date [...] as of this encounter (statuses as of 06/13/2024) Active Problems Problem Noted Date Diagnosed Date Dyslipidemia 05/19/2018 Coronary artery disease invo lving [place] coronary artery of [place] heart 05/19/2018 Prediabetes 10/13/2017 Overview: Per Prediabetes protocol #1 Old [place] (myocardial infarction) 06/03/2017 History of bladder cancer 03/24/2017 HTN, goal below 140/90 01/05/2013 Macular puckering 11/10/2012 Nevus, 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/10/2012 documented as of this encounter (statuses as of 06/13/2024) Resolved Problems Problem Noted Date Diagnosed Date Resolved Date Atherosclerotic heart diseas e of [place] coronary artery with other forms of angina [...] as of this encounter (statuses as of 06/13/2024) Immunizations Name Administration Dates Next Due Pneumococcal [...] on file documented as of this encounter Plan of Treatment Upcoming Encounters Date Type Department Care Team (Late st Contact Info) Description 06/23/2024 7:15 PM EDT Appointment Radiology, [address] [place] [address] Pending Results Name Type Priority Associated Diagnoses Date /Time VITAMIN B12 Lab Routine Anemia, unspecified type 06/13/2024 9:51 AM EDT FERRITIN Lab Routine Anemia, unspecified type 06/13/2024 9:51 AM EDT IRON SCREEN, INCLUDING TIBC Lab Routine Anemia, unspecified type 06/13/2024 9:51 AM EDT Health Maintenance Due Date Last Done Comments DISCUSS TOBACCO CESSATION (REFER TO SMARTSET #0455) 1945 Adult Wellness Visit 2009 Zoster Vaccines [...] this encounter Medical Devices Implanted Type Area Retort Furnace Operator Device Identifier Shelf Expiration Date Model / Serial / Lot 3dmax Light Mesh Implanted:Qty: 1 on 11/01/2013 at OR [facility] Right: Groin 10/28/2018 [id number] / / [id number] 3dmax Light Mesh Implanted:Qty: 1 on 11/01/2013 at OR [facility] Left: Groin 10/28/2018 [id number] / / [id number] documented as of this encounter Visit Diagnoses Diagnosis Anemia, unspecified type documented in this encounter Advance Directives * [...] and were consensually agreed upon. Care Teams Dice Person Relationship Specialty Start Date End Date Zenia Beckham PA-C [address] [facility] [place] [address] PCP - General Physician Mail Truck Driver 03/10/24 documented as of this encounter
--- OUTSIDE RECORDS SUMMARY | 2024-07-14 23:03 | External Medical Summary | Summary of Care ---
Author Name Unknown Organization [facility] Address [address] [facility] [address] Phone [phone] Care Team Providers Care Producer Name Role Phone Zenia Beckham PA-C Primary Care Provider [phone] Reason for Referral * Medication Prior Authorization - Closed Specialty Diagnoses / Procedures Referred By Shahab t Referred To Contact Diagnoses Nausea Robert Michele DO 200 [facility] [place] [address] Referral ID Status Reason Start Date Expiration Date Visits Re quested Visits Authorized [id number] Closed 999 999 Reason for Visit * Reason Onset Date Comments Med Request 06/20/2024 Loss Appetite Encounter Details Date Type Department Care Team (Late st Contact Info) Description 06/20/2024 Telephone Family Practice [facility] [place] [address] [facility] [place] [address] Zenia Beckham PA-C 200 [facility] [place] [address] Med Request (Loss Appetite) Allergies Active Allergy Reactions Criticality Noted Date Comments Tramadol 01/25/2016 Nausea documented as of this encounter (statuses as of 06/22/2024) Medications Medication Sig Dispensed Refills Start Date [...] as of this encounter (statuses as of 06/22/2024) Active Problems Problem Noted Date Diagnosed Date Dyslipidemia 05/19/2018 Coronary artery disease invo lving [place] coronary artery of [place] heart 05/19/2018 Prediabetes 10/13/2017 Overview: Per Prediabetes protocol #1 Old [place] (myocardial infarction) 06/03/2017 History of bladder cancer 03/24/2017 HTN, goal below 140/90 01/05/2013 Macular puckering 11/10/2012 Nevus, 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/10/2012 documented as of this encounter (statuses as of 06/22/2024) Resolved Problems Problem Noted Date Diagnosed Date Resolved Date Atherosclerotic heart diseas e of [place] coronary artery with other forms of angina [...] as of this encounter (statuses as of 06/22/2024) Immunizations Name Administration Dates Next Due Pneumococcal [...] encounter Miscellaneous Notes * Telephone Encounter - Radha Ibrahim LPN - 06/22/2024 2:30 PM EDT Called and spoke to patiens . Made aware verbalized understanding * Telephone Encounter - Robert Michele DO - 06/21/2024 5:43 PM EDT Zoan sent * Telephone Encounter - Sybil Shafer LPN - 06/21/2024 4:40 PM EDT Spoke with patient's (he was on the line as well) making them aware of below. He's also experiencing some nausea and asking if he can get something to help with that too. Please advise. * Telephone Encounter - Regi Braden OSA - 06/21/2024 3:09 PM EDT Pt daughter stopped in the clinic today about the medication that was prescribed please call. Thanks * Telephone Encounter - Robert Michele DO - 06/20/2024 4:34 PM EDT Please call: I sent in for a medication called Remeron to help encourage his appetite. This medication also helps with sleep and can replace the Trazodone that he is on. * Telephone Encounter - Radha Ibrahim LPN - 06/20/2024 2:33 PM EDT Please advise if willing to prescribe something to help with appetite * Telephone Encounter - Darshana Damon OSA - 06/20/2024 8:54 AM EDT Patient daughter called to inform [place] that patient need a a medication that will help increase patient appetite due to loss of appetite from Cancer documented in this encounter Plan of Treatment Upcoming Encounters Date Type Department Care Team (Late st Contact Info) Description 06/23/2024 11:40 AM EDT Telemedicine Family Practice [facility] [address] [place] [address] Bennett Slaughter III, MD [address] [place] [address] Health Maintenance Due Date Last Done Comments DISCUSS TOBACCO CESSATION (REFER TO SMARTSET #7030) 1945 Adult Wellness Visit 2009 Zoster Vaccines [...] this encounter Medical Devices Implanted Type Area Certified Rehabilitation Counselor Device Identifier Shelf Expiration Date Model / Serial / Lot 3dmax Light Mesh Implanted:Qty: 1 on 11/01/2013 at OR [facility] Right: Groin 10/28/2018 [id number] / / [id number] 3dmax Light Mesh Implanted:Qty: 1 on 11/01/2013 at OR [facility] Left: Groin 10/28/2018 [id number] / / [id number] documented as of this encounter Visit Diagnoses Diagnosis Nausea- Primary Nausea alone documented in this encounter Advance [...] and were consensually agreed upon. Care Teams Producer Relationship Specialty Start Date End Date Bhavani November AMERICO Olivier 200 [facility] [place] [address] PCP - General Physician Staff Certified Nurse Midwife 03/10/24 documented as of this encounter
--- OUTSIDE RECORDS SUMMARY | 2024-07-14 23:03 | External Medical Summary | Summary of Care ---
Author Name Unknown Organization [facility] Address [address] [facility] [place] [address] Phone [phone] Care Team Providers Care Milk Runner Name Role Phone Bhavani Zenia Charline DRISCOLL Primary Care Provider Reason for Visit * Reason Onset Date Comments Appointment 06/24/2024 Encounter Details Date Type Department Care Team (Late st Contact Info) Description 06/24/2024 Telephone H[facility]ology [facility] [address] [facility] [place] [address] Jennifer Olivarez MD [address] [facility] [place] [phone] Appointment Allergies Active Allergy Reactions Criticality Noted Date Comments Tramadol 01/25/2016 Nausea documented as of this encounter (statuses as of 06/27/2024) Medications Medication Sig Dispensed Refills Start Date [...] as of this encounter (statuses as of 06/27/2024) Active Problems Problem Noted Date Diagnosed Date Dyslipidemia 05/19/2018 Coronary artery disease invo lving [place] coronary artery of [place] heart 05/19/2018 Prediabetes 10/13/2017 Overview: Per Prediabetes protocol #1 Old [place] (myocardial infarction) 06/03/2017 History of bladder cancer 03/24/2017 HTN, goal below 140/90 01/05/2013 Macular puckering 11/10/2012 Nevus, 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/10/2012 documented as of this encounter (statuses as of 06/27/2024) Resolved Problems Problem Noted Date Diagnosed Date Resolved Date Atherosclerotic heart diseas e of [place] coronary artery with other forms of angina [...] as of this encounter (statuses as of 06/27/2024) Immunizations Name Administration Dates Next Due Pneumococcal [...] encounter Miscellaneous Notes * Telephone Encounter - Ana Pedro OSA - 06/27/2024 10:27 AM EDT Pt's daughter Leatha called in- she stated she is looking to schedule for hem/onc in [facility]. I advised to have PCP send referral over for hem/ onc and urology per Ask a dock in pt's chart. * Telephone Encounter - Charo Irby OSA - 06/24/2024 1:01 PM EDT LMOM including contact info requesting a call back to confirm scheduled appointment: 2:[address] 07[address] Olivarez * Telephone Encounter - Charo Irby OSA - 06/24/2024 1:01 PM EDT ----- Message from Shaik Shaik Cherie Rivas MD sent at 06/24/2024 8:56 AM EDT ----- Good morning, Please arrange for a new patient visit with medical oncology - next available. 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 Awaiting biopsy. Rob. documented in this encounter Plan of Treatment Health Maintenance Due Date Last Done Comments DISCUSS TOBACCO CESSATION (REFER TO SMARTSET #6766) 1945 Adult Wellness Visit 2009 Zoster Vaccines [...] this encounter Medical Devices Implanted Type Area Director Of Claims Device Identifier Shelf Expiration Date Model / Serial / Lot 3dmax Light Mesh Implanted:Qty: 1 on 11/01/2013 at OR [facility] Right: Groin 10/28/2018 [id number] / / [id number] 3dmax Light Mesh Implanted:Qty: 1 on 11/01/2013 at OR [facility] Left: Groin 10/28/2018 [id number] / / [id number] documented as of this encounter Advance Directives [...] and were consensually agreed upon. Care Teams Milk Runner Relationship Specialty Start Date End Date Bhvaani Zenia AMERICO Olivier [address] [facility] [place] [address] PCP - General Physician Balloon Maker 03/10/24 documented as of this encounter
--- OUTSIDE RECORDS SUMMARY | 2024-07-14 23:03 | External Medical Summary | Summary of Care ---
Author Name Unknown Organization [facility] Address [address] [place] [address] Phone [phone] Care Team Providers Care Mission Planner Name Role Phone Zenia Beckham PA-C Primary Care Provider [phone] Reason for Referral * Evaluate & Treat - Unlimited Visits (Within 3 days (urgent)) - Authorized Specialty Diagnoses / Procedures Referred By Shahab dailey Referred To Contact Urology Diagnoses Metastatic malignant neoplasm, unspecified site (HCC) Zenia Beckham PA-C [address] [place] [address] Referral ID Status Reason Start Date Expiration Date Visits Requested Visits Authorized [id number] Authorized Specialty Services Required 4 [phone] Question Answer Referral Priority Within 3 days (urgent) Where should this appointment be scheduled? [facility] What is the patient being referred for? Cancer * Evaluate & Treat - Unlimited Visits (Within 3 days (urgent)) - Authorized Specialty Diagnoses / Procedures Referred By Shahab dailey Referred To Contact Hematology/Oncology / Hematology Oncology Diagnoses Lung mass Mass of right thigh Zenia Beckham PA-C [address] [place] [address] Referral ID Status Reason Start Date Expiration Date Visits Requested Visits Authorized [id number] Authorized Specialty Services Required 4 [phone] Question Answer Referral Priority Within 3 days (urgent) Where should this appointment be scheduled? [facility] Reason for Referral Malignant Oncology (Solid Organ Cancer) Comments Pt originally scheduled in the [facility] but needs Central. Reason for Visit * Reason Onset Date Comments Order Request 06/27/2024 Encounter Details Date Type Department Care Team (Late st Contact Info) Description 06/27/2024 Telephone Family Practice [facility] [place] [address] [facility] [place] [address] Zenia Beckham PA-C [address] [place] [address] Order Request Allergies Active Allergy Reactions Criticality Noted [...] Dyslipidemia 05/19/2018 Coronary artery disease invo lving [place] coronary artery of [place] heart 05/19/2018 Prediabetes 10/13/2017 Overview: Per Prediabetes protocol #1 Old [place] (myocardial infarction) 06/03/2017 History of bladder cancer 03/24/2017 HTN, goal below 140/90 01/05/2013 Macular puckering 11/10/2012 Nevus, 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/10/2012 documented as of this encounter (statuses as of 06/29/2024) Resolved Problems Problem Noted Date Diagnosed Date Resolved Date Atherosclerotic heart diseas e of [place] coronary artery with other forms of angina [...] - Ute De Souza OSA - 06/29/2024 1:21 PM EDT Tried to call and scheduled referrals and was denied for Hem/ONC Referral and the IR Biopsy someonefrom each department will reach out in regards to getting patient scheduled * Telephone Encounter - Zenia Beckham PA-C - 06/27/2024 7:12 PM EDT Referrals placed. Please schedule * Telephone Encounter - Marion Valenzuela, MARYANN - 06/27/2024 4:42 PM EDT Referrals pended. Sign if agreeable. Chart Review 06/24/24:Ask-a-doc requested for initial diagnostic work up. Recommendations: Please do the following: - Agree with MRI of right femur. - Check whole body PET-CT. - Would recommend initial work up with IR biopsy of right thigh mass, to obtain multiple cores fromdifferent sites of the tumor mass. Also concurrently would recommend IR biopsy of the lung mass. - MRI of Abdomen to evaluate renal mass, and pancreatic mass. - Patient will need a multi-disciplinary approach for management given advanced age, and concern for more than 1 concurrent neoplasms. - Please refer to Medical oncology for an official consultation. I will have our javascript front end developer arrangefor an appointment - Also refer to Urology, patient may need renal biopsy Time Spent: 15 minutes Specialist Signature: Shaik Charline Rivas MD * Telephone Encounter - Leigha Arshad OSA - 06/27/2024 10:40 AM EDT Has the patient been seen for this problem? (Y/N)?: Yes If No, an appt needs to be scheduled before a referral will be placed (exception: proceed with referral request if referral request is for a yearly routine appointment with speciality) Patient Name: Willy Vinson Patient Primary care provider: Zenia Beckham PA-C Does this need to be an insurance referral (Y/N)?: Yes If Yes, does the insurance referral need to be placed into the [employer] system? Name of preferred specialist: NA Type of specialist: Oncologist and urologist Location of specialist: Pt originally scheduled in the [facility] but needs Central. Specialist's Phone #: NA Specialist's Fax #: NA Reason for visit: Unable to schedule until referral is in. Date of visit: NA documented in this encounter Plan of Treatment Upcoming Encounters Date Type Department Care Team (Late st Contact Info) Description 07/01/2024 3:30 PM EDT Office Visit Urology Miriam Johnson [address] [place] [address] [place] [address] Arron Ashley MD [address] [place] [address] Scheduled Referrals Name Type Priority Associated Diagnoses Orde r Schedule HEMATOLOGY/ONCOLOGY REFERRAL OP Referral Within 3 days (urgent) Lung mass Mass of right thigh Ordered: 06/27/2024 ADULT/PEDS UROLOGY REFERRAL OP Referral Within 3 days (urgent) Metastatic malignant neoplasm, unspecified site (HCC) Ordered: 06/27/2024 Health Maintenance Due Date Last Done Comments DISCUSS TOBACCO CESSATION (REFER TO SMARTSET #4944) 1945 Adult Wellness Visit 2009 Zoster Vaccines [...] this encounter Medical Devices Implanted Type Area Web Designer Device Identifier Shelf Expiration Date Model / Serial / Lot 3dmax Light Mesh Implanted:Qty: 1 on 11/01/2013 at OR [facility] Right: Groin 10/28/2018 [id number] / / [id number] 3dmax Light Mesh Implanted:Qty: 1 on 11/01/2013 at OR [facility] Left: Groin 10/28/2018 [id number] / / [id number] documented as of this encounter Visit Diagnoses Diagnosis Metastatic malignant neoplasm, unspecified site (HCC)- Primary Lung mass Swelling, mass, or lump in chest Mass of right thigh documented in this encounter Advance Directives * [...] and were consensually agreed upon. Care Teams Mission Planner Relationship Specialty Start Date End Date Zenia Beckham PA-C [address] [place] [address] PCP - General Physician Flumer 03/10/24 documented as of this encounter
--- OUTSIDE RECORDS SUMMARY | 2024-07-14 23:03 | External Medical Summary ---
Author Name Unknown Address Unknown Organization K01:[facility] [place] - [address] [place] [address] Laboratory Report Ordering Provider Test Date Status INES PRADO III 06/13/2024 09:51:05 Final Observation Date Value Abnormality Reference (Units ) Status Vitamin B12 06/13/2024 09:51:05 [phone] (pg/mL) Final Performing Location [facility] [place] - [address] [place] [address]
--- OUTSIDE RECORDS SUMMARY | 2024-07-14 23:03 | External Medical Summary | Summary of Care ---
Author Name Unknown Organization [facility] Address [address] [place] [address] Phone [phone] Care Team Providers Care Sales Operations Director Name Role Phone Zenia Beckham PA-C Primary Care Provider [phone] Reason for Referral * Evaluate & Treat - Unlimited Visits (Within 3 days (urgent)) - Authorized Specialty Diagnoses / Procedures Referred By Shahab dailey Referred To Contact Urology Diagnoses Metastatic malignant neoplasm, unspecified site (HCC) Zenia Beckham PA-C [address] [place] [address] Referral ID Status Reason Start Date Expiration Date Visits Requested Visits Authorized [id number] Authorized Specialty Services Required 4 [phone] [...] thigh Zenia Beckham PA-C [address] [place] [address] Referral ID Status Reason Start Date Expiration Date Visits Requested Visits Authorized [id number] Authorized Specialty Services Required 4 [phone] Question Answer Referral Priority Within 3 days (urgent) Where should this appointment be scheduled? [facility] Reason for Referral Malignant Oncology (Solid Organ Cancer) Comments Pt originally scheduled in the [facility] but needs Central. Reason for Visit * Reason Onset Date Comments Order Request 06/27/2024 Encounter Details Date Type Department Care Team (Late st Contact Info) Description 06/27/2024 Telephone Family Practice State Andree Palacios [address] [facility] [place] [address] Zenia Beckham PA-C [address] [place] [address] Order Request Allergies Active Allergy Reactions Criticality Noted Date Comments Tramadol 01/25/2016 Nausea documented as of this encounter (statuses as of 06/28/2024) Medications Medication Sig Dispensed Refills Start Date [...] as of this encounter (statuses as of 06/28/2024) Active Problems Problem Noted Date Diagnosed Date Dyslipidemia 05/19/2018 Coronary artery disease invo lving [place] coronary artery of [place] heart 05/19/2018 Prediabetes 10/13/2017 Overview: Per Prediabetes protocol #1 Old [place] (myocardial infarction) 06/03/2017 History of bladder cancer 03/24/2017 HTN, goal below 140/90 01/05/2013 Macular puckering 11/10/2012 Nevus, 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/10/2012 documented as of this encounter (statuses as of 06/28/2024) Resolved Problems Problem Noted Date Diagnosed Date Resolved Date Atherosclerotic heart diseas e of [place] coronary artery with other forms of angina [...] as of this encounter (statuses as of 06/28/2024) Immunizations Name Administration Dates Next Due Pneumococcal [...] an official consultation. I will have our front desk admin arrangefor an appointment - Also refer to [...] referral need to be placed into the [email or web address] system? Name of preferred specialist: BASSAM Type of specialist: Oncologist and urologist Location of specialist: Pt originally scheduled in the [facility] but needs Central. Specialist's Phone #: NA Specialist's Fax #: NA Reason for visit: Unable to schedule until referral is in. Date of visit: NA documented in this encounter Plan of Treatment Scheduled Referrals Name Type Priority Associated Diagnoses Orde r Schedule HEMATOLOGY/ONCOLOGY REFERRAL OP Referral Within 3 days (urgent) Lung mass Mass of right thigh Ordered: 06/27/2024 ADULT/PEDS UROLOGY REFERRAL OP Referral Within 3 days (urgent) Metastatic malignant neoplasm, unspecified site (HCC) Ordered: 06/27/2024 Health Maintenance Due Date Last Done Comments DISCUSS TOBACCO CESSATION (REFER TO SMARTSET #9862) 1945 Adult Wellness Visit 2009 Zoster Vaccines [...] this encounter Medical Devices Implanted Type Area Manager Nicu Device Identifier Shelf Expiration Date Model / Serial / Lot 3dmax Light Mesh Implanted:Qty: 1 on 11/01/2013 at OR [facility] Right: Groin 10/28/2018 [id number] / / [id number] 3dmax Light Mesh Implanted:Qty: 1 on 11/01/2013 at OR [facility] Left: Groin 10/28/2018 [id number] / / [id number] documented as of this encounter Visit Diagnoses [...] and were consensually agreed upon. Care Teams Sales Operations Director Relationship Specialty Start Date End Date Zenia Beckham PA-C [address] [facility] [place] [address] PCP - General Physician Cylinder Inspector 03/10/24 documented as of this encounter
--- OUTSIDE RECORDS SUMMARY | 2024-07-14 23:03 | External Medical Summary | Summary of Care ---
Author Name Unknown Organization [facility] Address [address] [facility] [place] [address] Phone [phone] Care Team Providers Care Gimp Tacker Name Role Phone Zenia Beckham PA-C Primary Care Provider [phone] Encounter Details Date Type Department Care Team (Late st Contact Info) Description 06/20/2024 Orders Only Family Practice [facility] [address] [place] [address] Zenia Beckham PA-C [address] [facility] [place] [phone] Allergies Active Allergy Reactions Criticality Noted Date Comments Tramadol 01/25/2016 Nausea documented as of this encounter (statuses as of 06/20/2024) Medications Medication Sig Dispensed Refills Start Date [...] as of this encounter (statuses as of 06/20/2024) Active Problems Problem Noted Date Diagnosed Date Dyslipidemia 05/19/2018 Coronary artery disease invo lving [place] coronary artery of [place] heart 05/19/2018 Prediabetes 10/13/2017 Overview: Per Prediabetes protocol #1 Old [place] (myocardial infarction) 06/03/2017 History of bladder cancer 03/24/2017 HTN, goal below 140/90 01/05/2013 Macular puckering 11/10/2012 Nevus, 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/10/2012 documented as of this encounter (statuses as of 06/20/2024) Resolved Problems Problem Noted Date Diagnosed Date Resolved Date Atherosclerotic heart diseas e of [place] coronary artery with other forms of angina [...] as of this encounter (statuses as of 06/20/2024) Immunizations Name Administration Dates Next Due Pneumococcal [...] State Andree Palacios [address] [place] [address] Bennett Slaughter III, MD [address] [facility] [place] [address] Health Maintenance Due Date Last Done Comments DISCUSS TOBACCO CESSATION (REFER TO SMARTSET #8495) 1945 Adult Wellness Visit 2009 Zoster Vaccines [...] this encounter Medical Devices Implanted Type Area Wood Pole Treater Device Identifier Shelf Expiration Date Model / Serial / Lot 3dmax Light Mesh Implanted:Qty: 1 on 11/01/2013 at OR [facility] Right: Groin 10/28/2018 [id number] / / [id number] 3dmax Light Mesh Implanted:Qty: 1 on 11/01/2013 at OR [facility] Left: Groin 10/28/2018 [id number] / / [id number] documented as of this encounter Procedures Procedure Name Priority Date/Time Associated Diagnosis Comments CTA CHEST NON-CORONARY W CONTRAST Routine 06/17/2024 documented in this encounter Results * CTA CHEST NON-CORONARY W CONTRAST (06/17/2024) Anatomical Region Laterality Modality Chest, Cardio, Body Other 06/17/2024 Ghulam Kent PA-C RAD CT documented in this encounter Advance Directives * [...] and were consensually agreed upon. Care Teams Gimp Tacker Relationship Specialty Start Date End Date Zenia Beckham PA-C [facility] [address] [place], [place] [address] PCP - General Physician Student Services Counselor 03/10/24 documented as of this encounter
--- OUTSIDE RECORDS SUMMARY | 2024-07-14 23:03 | External Medical Summary | Summary of Care ---
Author Name Unknown Organization [facility] Address [address] [facility] [place] [address] Phone [phone] Care Team Providers Care Crop Or Grain Farmer Name Role Phone Bhavani November AMERICO Primary Care Provider [phone] Encounter Details Date Type Department Care Team (Late st Contact Info) Description 06/11/2024 Orders Only PATIENT PORTAL DO NOT DELETE THIS DEPT USED BY [place] [address] Allergies Active Allergy Reactions Criticality Noted Date Comments Tramadol 01/25/2016 Nausea documented as of this encounter (statuses as of 06/11/2024) Medications Medication Sig Dispensed Refills Start Date [...] as of this encounter (statuses as of 06/11/2024) Active Problems Problem Noted Date Diagnosed Date Dyslipidemia 05/19/2018 Coronary artery disease invo lving [place] coronary artery of [place] heart 05/19/2018 Prediabetes 10/13/2017 Overview: Per Prediabetes protocol #1 Old [place] (myocardial infarction) 06/03/2017 History of bladder cancer 03/24/2017 HTN, goal below 140/90 01/05/2013 Macular puckering 11/10/2012 Nevus, 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/10/2012 documented as of this encounter (statuses as of 06/11/2024) Resolved Problems Problem Noted Date Diagnosed Date Resolved Date Atherosclerotic heart diseas e of [place] coronary artery with other forms of angina [...] as of this encounter (statuses as of 06/11/2024) Immunizations Name Administration Dates Next Due Pneumococcal [...] as of this encounter Plan of Treatment Health Maintenance Due Date Last Done Comments DISCUSS TOBACCO CESSATION (REFER TO SMARTSET #3171) 1945 Adult Wellness Visit 2009 Zoster Vaccines [...] this encounter Medical Devices Implanted Type Area Husker Operator Device Identifier Shelf Expiration Date Model / Serial / Lot 3dmax Light Mesh Implanted:Qty: 1 on 11/01/2013 at OR [facility] Right: Groin 10/28/2018 [id number] / / [id number] 3dmax Light Mesh Implanted:Qty: 1 on 11/01/2013 at OR [facility] Left: Groin 10/28/2018 [id number] / / [id number] documented as of this encounter Advance Directives [...] and were consensually agreed upon. Care Teams Crop Or Grain Farmer Relationship Specialty Start Date End Date Bhavani November AMERICO Olivier [address] [place] [address] PCP - General Physician Regional Facilities Specialist 03/10/24 documented as of this encounter
--- OUTSIDE RECORDS SUMMARY | 2024-07-14 23:03 | External Medical Summary | Summary of Care ---
Author Name Unknown Organization [facility] Address [address] [facility] [place] [address] Phone [phone] Care Team Providers Care Offset Pressman Name Role Phone Bhavani Zenia Charline DRISCOLL Primary Care Provider [phone] Reason for Visit * Reason Onset Date Comments Appointment 06/24/2024 Encounter Details Date Type Department Care Team (Late st Contact Info) Description 06/24/2024 Telephone Hematology [facility] [place] [address] [facility] [place] [address] Jennifer Olivarez MD [address] [facility] [place] [phone] Appointment Allergies Active Allergy Reactions Criticality Noted Date Comments Tramadol 01/25/2016 Nausea documented as of this encounter (statuses as of 06/24/2024) Medications Medication Sig Dispensed Refills Start Date [...] as of this encounter (statuses as of 06/24/2024) Active Problems Problem Noted Date Diagnosed Date Dyslipidemia 05/19/2018 Coronary artery disease invo lving [place] coronary artery of [place] heart 05/19/2018 Prediabetes 10/13/2017 Overview: Per Prediabetes protocol #1 Old [place] (myocardial infarction) 06/03/2017 History of bladder cancer 03/24/2017 HTN, goal below 140/90 01/05/2013 Macular puckering 11/10/2012 Nevus, 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/10/2012 documented as of this encounter (statuses as of 06/24/2024) Resolved Problems Problem Noted Date Diagnosed Date Resolved Date Atherosclerotic heart diseas e of [place] coronary artery with other forms of angina [...] as of this encounter (statuses as of 06/24/2024) Immunizations Name Administration Dates Next Due Pneumococcal [...] encounter Miscellaneous Notes * Telephone Encounter - Charo Irby OSA [...] Oncology [facility] [place] [address] [facility] [place] [address] Jennifer Olivarez MD [address] [facility] [place] [address] Health Maintenance Due Date Last Done Comments DISCUSS TOBACCO CESSATION (REFER TO SMARTSET #6971) 1945 Adult Wellness Visit 2009 Zoster Vaccines [...] this encounter Medical Devices Implanted Type Area Spray Mixer Device Identifier Shelf Expiration Date Model / Serial / Lot 3dmax Light Mesh Implanted:Qty: 1 on 11/01/2013 at OR [facility] Right: Groin 10/28/2018 [id number] / / [id number] 3dmax Light Mesh Implanted:Qty: 1 on 11/01/2013 at OR [facility] Left: Groin 10/28/2018 [id number] / / [id number] documented as of this encounter Advance Directives [...] and were consensually agreed upon. Care Teams Offset Pressman Relationship Specialty Start Date End Date Zenia Beckham PA-C [address] [place] [address] PCP - General Physician Intervention Specialist 03/10/24 documented as of this encounter
--- OUTSIDE RECORDS SUMMARY | 2024-07-14 23:03 | External Medical Summary | Summary of Care ---
Author Name Unknown Organization [facility] Address [address] [facility] [place] [address] Phone [phone] Care Team Providers Care Transcribing Machine Operator Name Role Phone Bhavani Zenia Charline DRISCOLL Primary Care Provider [phone] Encounter Details Date Type Department Care Team (Latest Contact Info) Description 06/09/2024 3:15 PM EDT - 06/09/2024 11:59 PM EDT Hospital Encounter Radiology, [facility] [address] [facility] [place] [id number] Arrived Discharge Disposition: Home - Self Care Allergies Active Allergy Reactions Criticality Noted Date Comments Tramadol 01/25/2016 Nausea documented as of this encounter (statuses as of 06/10/2024) Medications Medication Sig Dispensed Refills Start Date [...] as of this encounter (statuses as of 06/10/2024) Active Problems Problem Noted Date Diagnosed Date Dyslipidemia 05/19/2018 Coronary artery disease invo lving [place] coronary artery of [place] heart 05/19/2018 Prediabetes 10/13/2017 Overview: Per Prediabetes protocol #1 Old ND (myocardial infarction) 06/03/2017 History of bladder cancer 03/24/2017 HTN, goal below 140/90 01/05/2013 Macular puckering 11/10/2012 Nevus, 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/10/2012 documented as of this encounter (statuses as of 06/10/2024) Resolved Problems Problem Noted Date Diagnosed Date Resolved Date Atherosclerotic heart diseas e of [place] coronary artery with other forms of angina [...] as of this encounter (statuses as of 06/10/2024) Immunizations Name Administration Dates Next Due Pneumococcal [...] Comments DISCUSS TOBACCO CESSATION (REFER TO SMARTSET #0239) 1945 Adult Wellness Visit 2009 Zoster Vaccines [...] this encounter Medical Devices Implanted Type Area Fire Equipment Inspector Helper Device Identifier Shelf Expiration Date Model / Serial / Lot 3dmax Light Mesh Implanted:Qty: 1 on 11/01/2013 at OR [facility] Right: Groin 10/28/2018 [id number] / / [id number] 3dmax Light Mesh Implanted:Qty: 1 on 11/01/2013 at OR [facility] Left: Groin 10/28/2018 [id number] / / [id number] documented as of this encounter Procedures Procedure Name Priority Date/Time Associated Diagnosis Comments US EXTREMITY, NON-VASCULAR LIMITED Routine 06/09/2024 3:47 PM EDT Skin lump of leg, right documented in this encounter Results * US EXTREMITY, NON-VASCULAR LIMITED (06/09/2024 3:47 PM EDT) Anatomical Region Laterality Modality Extremity, Lower Extremity, Upper Extremity Ultrasound 06/09/2024 9:45 PM EDT Impressions 06/09/2024 9:43 PM EDT IMPRESSION Abnormal intramuscular mass at the right medial mid thigh. Given patient's advanced age and the mass appearance, concern for potential malignancy (specifically sarcoma). RECOMMEND MRI (without then with IV contrast). IF patient cannot given MRI, THEN recommend CT (without then with IV contrast). Narrative 06/09/2024 9:43 PM EDT EXAM US EXTREMITY, NON-VASCULAR LIMITED-06/09/2024 3:47 pm HISTORY pain ful lump r medial thigh COMPARISON None. TECHNIQUE Targeted ultrasound of the right medial mid thigh muscles/soft tissues in the region of concern. FINDINGS There is an abnormal (4.7 x 1.5 x 2.7 cm LONG x AP x TRV) hypoechoic mass with some vascularity within and imaged muscle at the level of medial mid thigh. Unclear which muscle contains the intramuscular mass, presumably either the sartorius or gracilis muscle based on reported image location. Procedure Note Son Kinney MD - 06/09/2024 EXAM US EXTREMITY, NON-VASCULAR LIMITED-06/09/2024 3:47 pm HISTORY pain ful lump r medial thigh COMPARISON None. TECHNIQUE Targeted ultrasound of the right medial mid thigh muscles/soft tissues inthe region of concern. FINDINGS There is an abnormal (4.7 x 1.5 x 2.7 cm LONG x AP x TRV) hypoechoic masswith some vascularity within and imaged muscle at the level of medial midthigh. Unclear which muscle contains the intramuscular mass, presumablyeither the sartorius or gracilis muscle based on reported imagelocation. IMPRESSION IMPRESSION Abnormal intramuscular mass at the right medial mid thigh. Givenpatient's advanced age and the mass appearance, concern for potentialmalignancy (specifically sarcoma). RECOMMEND MRI (without then with IVcontrast). IF patient cannot given MRI, THEN recommend CT (without thenwith IV contrast). Bennett Slaughter III, MD RAD ULTRASOUND documented in this encounter Visit Diagnoses Diagnosis Skin lump of leg, right documented in this encounter Advance Directives * [...] and were consensually agreed upon. Care Teams Transcribing Machine Operator Relationship Specialty Start Date End Date BhavaniNovember AMERICO Olivier [address] [place] [address] PCP - General Physician Surveyor Hydrographic 03/10/24 documented as of this encounter
--- OUTSIDE RECORDS SUMMARY | 2024-07-14 23:04 | External Medical Summary ---
Author Name Unknown Address Unknown Organization [id number]:LABORATORY [facility] [place] - [address] [place] [address] Laboratory Report Ordering Provider Test Date Status INES PRADO III 06/09/2024 10:28:26 Final Observation Date Value Abnormality Reference (Units ) Status CRP, low-sensitivity 06/09/2024 10:28:26 63 Above high normal <=5 (mg/L) Final Performing Location LABORATORY C - [address] [place] [address]
--- OUTSIDE RECORDS SUMMARY | 2024-07-14 23:04 | External Medical Summary | Summary of Care ---
Author Name Unknown Organization [facility] Address [address] [facility] [place] [address] Phone [phone] Care Team Providers Care Supervisor Pleating Name Role Phone Zenia Beckham PA-C Primary Care Provider [phone] Reason for Visit * Reason Comments Outpatient Testing Encounter Details Date Type Department Care Team (Late st Contact Info) Description 06/09/2024 10:20 AM EDT Laboratory Laboratory [facility] [address] [place] [address] [place], [address] [place] [address] Loss of weight; Malaise and fatigue Allergies Active Allergy Reactions Criticality Noted Date Comments Tramadol 01/25/2016 Nausea documented as of this encounter (statuses as of 06/09/2024) Medications Medication Sig Dispensed Refills Start Date [...] as of this encounter (statuses as of 06/09/2024) Active Problems Problem Noted Date Diagnosed Date Dyslipidemia 05/19/2018 Coronary artery disease invo lving [place] coronary artery of [place] heart 05/19/2018 Prediabetes 10/13/2017 Overview: Per Prediabetes protocol #1 Old [place] (myocardial infarction) 06/03/2017 History of bladder cancer 03/24/2017 HTN, goal below 140/90 01/05/2013 Macular puckering 11/10/2012 Nevus, 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/10/2012 documented as of this encounter (statuses as of 06/09/2024) Resolved Problems Problem Noted Date Diagnosed Date Resolved Date Atherosclerotic heart diseas e of [place] coronary artery with other forms of angina [...] as of this encounter (statuses as of 06/09/2024) Immunizations Name Administration Dates Next Due Pneumococcal [...] Upcoming Encounters Date Type Department Care Team ([facility] Contact Info) Description 06/09/2024 3:30 PM EDT Appointment Radiology, [address] [place] [address] Pending Results Name Type Priority Associated Diagnoses Date /Time HEMOGLOBIN A1C Lab Routine Loss of weight Malaise and fatigue 06/09/2024 10:28 AM EDT ERYTHROCYTE SEDIMENTATION RATE (ESR) Lab Routine Loss of weight Malaise and fatigue 06/09/2024 10:28 AM EDT CRP (INFLAMMATORY MARKER) Lab Routine Loss of weight Malaise and fatigue 06/09/2024 10:28 AM EDT COMPREHENSIVE METABOLIC PANEL Lab Routine Loss of weight Malaise and fatigue 06/09/2024 10:28 AM EDT TSH WITH FREE T4 IF INDICATED Lab Routine Loss of weight Malaise and fatigue 06/09/2024 10:28 AM EDT Health Maintenance Due Date Last Done Comments DISCUSS TOBACCO CESSATION (REFER TO SMARTSET #3291) 1945 Adult Wellness Visit 2009 Zoster Vaccines (2 of 3) 06/24/2017 04/29/2017 DTap/Tdap Vaccines (2 - Td or Tdap) 12/15/2022 12/15/2012 COVID-19 Vaccine (1 - season) 2024 Influenza Vaccine (FLU shot) (#1) 2024 11/05/2020, 06/30/2019, 07/23/2018, Additional history exists Depression Screening 12/30/2024 12/31/2023 GFR 12/30/2024 12/31/2023, 07/03, 07/19/2021, Additional history exists HbA1c 12/30/2024 12/31/2023, 07/03, 07/19/2021, Additional history exists Albumin/Creatinine Ratio 12/30/2026 12/31/2023 [...] this encounter Medical Devices Implanted Type Area Technical Service Engineer Device Identifier Shelf Expiration Date Model / Serial / Lot 3dmax Light Mesh Implanted:Qty: 1 on 11/01/2013 at OR [facility] Right: Groin 10/28/2018 [id number] / / [id number] 3dmax Light Mesh Implanted:Qty: 1 on 11/01/2013 at OR [facility] Left: Groin 10/28/2018 [id number] / / [id number] documented as of this encounter Procedures Procedure Name Priority Date/Time Associated Diagnosis Comments CBC Routine 06/09/2024 10:28 AM EDT Loss of weight Malaise and fatigue documented in this encounter Results * (ABNORMAL) CBC (06/09/2024 10:28 AM EDT) WBC 13.03(H) 4.00 - 10.80 K/uL 06/09/2024 10:38 AM EDT [facility] [place] [facility] RBC 3.97 4.50 - 5.25 M/uL 06/09/2024 10:38 AM EDT [facility] [place] [facility] HGB 12.8(L) 14.0 - 16.8 g/dL 06/09/2024 10:38 AM EDT [facility] [place] 5602 HCT 39.4(L) 40.0 - 48.4 % 06/09/2024 10:38 AM EDT [facility] [place] 56 MCV 99.2 82.0 - 99.5 fL 06/09/2024 10:38 AM EDT [facility] [place] [facility] MCH 32.2 27.0 - 34.0 pg 06/09/2024 10:38 AM EDT [facility] 5602 MCHC 32.5 32.0 - 36.0 g/dL 06/09/2024 10:38 AM EDT [facility] 56 RDW 13.3 11.5 - 15.5 % 06/09/2024 10:38 AM EDT [facility] 56- PLT 228 140 - 400 K/uL 06/09/2024 10:38 AM EDT [facility] 56 MPV 11.2 6.6 - 11.1 fL 06/09/2024 10:38 AM EDT [facility] 56- Blood Venous blood specimen / Unknown Venipuncture / Unknown 06/09/2024 10:28 AM EDT 06/09/2024 10:28 AM EDT Bennett Slaughter III, MD LAB BLOOD ORDERABLE S [facility] [address] [facility] [place] [address] documented in this encounter Visit Diagnoses Diagnosis Loss of weight Malaise and fatigue Other malaise and fatigue documented in this encounter Advance Directives * [...] and were consensually agreed upon. Care Teams Supervisor Pleating Relationship Specialty Start Date End Date Zenia Beckham PA-C [address] [facility] [place] [address] PCP - General Physician Instrumentation Engineering Technician 03/10/24 documented as of this encounter
--- OUTSIDE RECORDS SUMMARY | 2024-07-14 23:04 | External Medical Summary ---
Author Name Unknown Address Unknown Organization [id number]:LABORATORY [facility] [place] [place] - [address] [place] [address] Laboratory Report Ordering Provider Test Date Status INES PRADO III 06/09/2024 10:28:26 Final Observation Date Value Abnormality Reference (Units ) Status TSH 06/09/2024 10:28:26 1.11 0.27-4.20 (uIU/mL) Final Performing Location LABORATORY [facility] [place] [place] - [address] [place] [address]
--- OUTSIDE RECORDS SUMMARY | 2024-07-14 23:04 | External Medical Summary | Summary of Care ---
Author Name Unknown Organization [facility] Address [address] [facility] [place] [address] Phone [phone] Care Team Providers Care Dental Service Chief Name Role Phone Sukhjinder MORRISON MD, Bennett Pineda Primary Care Provider [phone] Reason for Visit * Reason Onset Date Comments Medication Refill 02/07/2024 Encounter Details Date Type Department Care Team (Late st Contact Info) Description 02/07/2024 Refill Family Practice [facility] [address] [facility] [place] [address] Zenia Beckham PA-C [address] [facility] [place] [address] Dyslipidemia Allergies Active Allergy Reactions Criticality Noted Date Comments Tramadol 01/25/2016 Nausea documented as of this encounter (statuses as of 02/09/2024) Medications Medication Sig Dispensed Refills Start Date [...] AT BEDTIME 90 Capsule 3 09/15/2023 Active Clopidogrel Bisulfate 75 MG Oral Tablet (pLAVix) Take 1 Tablet by mouth in the morning. 90 Tablet 12/21/2023 Active Gabapentin 300 MG Oral Capsule (Neurontin)Indica tions:DDD (degenerative disc disease), lumbar Take 1 Capsule by mouth in the morning and 1 Capsule in the evening. 60 Capsule 5 12/31/2023 Active Lisinopril 40 MG Oral Tablet Take 1 Tablet by mouth in the morning. In the morning.. 90 Tablet 1 02/09/2024 Active Carvedilol 25 MG Oral Tablet (Coreg)Indication s:HTN, goal below 150/90 Take 1 Tablet by mouth in the morning and 1 Tablet before bedtime. With food.. 180 Tablet 1 02/09/2024 Active Indapamide 2.5 MG Oral Tablet (Lozol) Take 1 Tablet by mouth in the morning. 90 Tablet 1 02/09/2024 Active Atorvastatin Calcium 80 MG Oral Tablet (Lipitor)Indicati ons:Dyslipidemia Take 1 Tablet by mouth daily. 90 Tablet 1 02/09/2024 Active Atorvastatin Calcium 80 MG Oral Tablet (Lipitor)Indicati ons:Dyslipidemia Take 1 Tablet by mouth in the morning. In the morning.. 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/10/2012 documented as of this encounter (statuses as of 02/09/2024) Resolved Problems Problem Noted Date Diagnosed Date Resolved Date Atherosclerotic heart diseas e of [place] coronary artery with other forms of angina [...] as of this encounter (statuses as of 02/09/2024) Immunizations Name Administration Dates Next Due Pneumococcal Conjugate Vacc, 13 Valent (Prevnar) 07/03/2015 Pneumococcal Polysaccharide PPV23 (Pneumovax) 01/05/2013 Season Influenza, Quad, PF, Adjuvanted, 65+ Yrs, IM (FLUAD) 11/05/2020 Seasonal Influenza, PF, 6 M & above, IM , (FluLaval or Fluzone) 07/23/2018,05/19/2018(Deferred: Patient Refused),06/03/2017 Seasonal Influenza, Quadriva lent, No Preserve, IM 07/03/2015 Seasonal Influenza, Split, I IV3, With Preserve, Inj 09/06/2014 Seasonal Influenza, Trivalen t, Adjuvanted, 65+ yrs 06/30/2019 TDAP (age 10 and older)(Boostrix) 12/15/2012 Varicella Zoster Vaccine (Adult) 04/29/2017 documented as of this encounter Social History Tobacco Use Types Packs/Day Years Used Date Smoking Tobacco: Every Day Cigarettes Smokeless Tobacco: Former Quit: 02/22/2015 Alcohol Use Standard Drinks/Week Comments No 0 (1 standard drink = 0.6 oz pur e alcohol) PHQ-2 Answer Date Recorded PHQ Adult Total Score 0 12/31/2023 Sex and Gender Information Value Date Recorded Sex Assigned at Not on file Gender Identity Not on file Sexual Orientation Not on file Job Start Date Occupation Industry Not on file Not on file Not on file documented as of this encounter Miscellaneous Notes * Telephone Encounter - Sirisha Liu [facility] - 02/09/2024 8:41 AM EDTSigned Prescriptions: Disp Refills Atorvastatin Calcium 80 MG Oral Tablet (Li*90 Tab*1 Sig: Take 1 Tablet by mouth daily.Authorizing Provider: ZENIA BECKHAM AOrdering User: SIRISHA LIU documented in this encounter Plan of Treatment Health Maintenance Due Date Last Done Comments DISCUSS TOBACCO CESSATION (REFER TO SMARTSET #3293) 1945 Zoster Vaccines (2 of 3) 06/24/2017 04/29/2017 DTaP,Tdap,and Td Vaccines (2 - Td or Tdap) 12/15/2022 12/15/2012 COVID-19 Vaccine ( season) 2023 Influenza Vaccine (FLU shot) (Season Ended) 2024 11/05/2020, 06/30/2019, 07/23/2018, Additional history exists Depression Screening 12/30/2024 12/31/2023 GFR 12/30/2024 12/31/2023, 07/03, 07/19/2021, Additional history exists HbA1c 12/30/2024 12/31/2023, 07/03, 07/19/2021, Additional history exists Albumin/Creatinine Ratio 12/30/2026 12/31/2023 Pneumococcal Vaccine: 65+ Years Completed 07/03/2015, 01/05/2013 GARDASIL-HPV IMMUNIZATION SERIES Aged Out No longer eligible based on patient's age to complete this topic Hepatitis B Aged Out No longer eligi ble based on patient's age to complete this topic MENINGOCOCCAL (MENACTRA/MENVEO) Aged Out No longer eligible based on patient's age to complete this topic documented as of this encounter Medical Devices Implanted Type Area Foreign Collection Clerk Device Identifier Shelf Expiration Date Model / Serial / Lot 3dmax Light Mesh Implanted:Qty: 1 on 11/01/2013 at OR [facility] Right: Groin 10/28/2018 [id number] / / [id number] 3dmax Light Mesh Implanted:Qty: 1 on 11/01/2013 at OR [facility] Left: Groin 10/28/2018 [id number] / / [id number] documented as of this encounter Visit Diagnoses Diagnosis Dyslipidemia Other and unspecified hyperlipidemia documented in this encounter Advance Directives * [...] and were consensually agreed upon. Care Teams Dental Service Chief Relationship Specialty Start Date End Date Bennett Slaughter III, MD [address] [place] [address] PCP - General Family Medicine 10/22/18 documented as of this encounter
--- OUTSIDE RECORDS SUMMARY | 2024-07-14 23:04 | External Medical Summary | Summary of Care ---
Author Name Unknown Organization [facility] Address [address] [facility] [place] [address] Phone [phone] Care Team Providers Care Jigger Operator Name Role Phone Sukhjinder MORRISON MD, Johan Pineda Primary Care Provider [phone] Reason for Visit * Reason Onset Date Comments Medication Refill 02/07/2024 Encounter Details Date Type Department Care Team (Late st Contact Info) Description 02/07/2024 Refill Family Practice [facility] [address] [facility] [place] [address] Johan Chacon III, MD [address] [place] [address] HTN, goal below 150/90 Allergies Active Allergy Reactions Criticality Noted Date [...] the morning. 90 Tablet 1 02/09/2024 Active Lisinopril 40 MG Oral Tablet Take 1 Tablet by mouth in the morning. In the morning.. 90 Tablet 11/25/2023 02/07/2024 Discontinued (Refill) Atorvastatin Calcium 80 MG Oral Tablet (Lipitor)Indicati ons:Dyslipidemia Take 1 Tablet by mouth in the morning. In the morning.. 90 Tablet 11/25/2023 02/07/2024 Discontinued (Refill) Carvedilol 25 MG Oral Tablet (Coreg)Indication s:HTN, goal below 150/90 Take 1 Tablet by mouth in the morning and 1 Tablet before bedtime. With food.. 60 Tablet 12/24/2023 02/07/2024 Discontinued (Refill) Indapamide 2.5 MG Oral Tablet (Lozol) Take 1 Tablet by mouth in the morning. 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 In the morning..Authorizing Provider: JOHAN CHACON III User: SIRISHA LIU Carvedilol 25 MG Oral Tablet (Coreg) 180 Ta*1 Sig: Take 1 Tablet by mouth in the morning and1 Tablet before bedtime. With food..Authorizing Provider: JOHAN CHACON III User: SIRISHA LIU Indapamide 2.5 MG Oral Tablet (Lozol) 90 Tab*1 Sig: Take1 Tablet by mouth in the morning.Authorizing Provider: JHOAN CHACON III User: SIRISHA LIU documented in this encounter Plan of Treatment Health Maintenance Due Date Last Done Comments DISCUSS TOBACCO CESSATION (REFER TO SMARTSET #3291) 1945 Zoster Vaccines (2 of 3) 06/24/2017 04/29/2017 DTaP,Tdap,and Td Vaccines (2 - Td or Tdap) 12/15/2022 12/15/2012 COVID-19 Vaccine (1 - 2022- season) 2023 Influenza Vaccine (FLU shot) (Season [...] this encounter Medical Devices Implanted Type Area Consultant Electronics Device Identifier Shelf Expiration Date Model / Serial / Lot 3dmax Light Mesh Implanted:Qty: 1 on 11/01/2013 at OR [facility] Right: Groin 10/28/2018 [id number] / / [id number] 3dmax Light Mesh Implanted:Qty: 1 on 11/01/2013 at OR [facility] Left: Groin 10/28/2018 [id number] / / [id number] documented as of this encounter Visit Diagnoses Diagnosis HTN, goal below 150/90 documented in this encounter Advance Directives * [...] and were consensually agreed upon. Care Teams Jigger Operator Relationship Specialty Start Date End Date Johan Chacon III, MD [address] [facility] [place] [address] PCP - General Family Medicine 10/22/18 documented as of this encounter
--- OUTSIDE RECORDS SUMMARY | 2024-07-14 23:04 | External Medical Summary ---
Author Name Unknown Address Unknown Organization K09:[place] [address] Laboratory Report Ordering Provider Test Date Status INES PRADO III 06/09/2024 10:28:26 Final Observation Date Value Abnormality Reference (Units ) Status WBC, Total 06/09/2024 10:28:26 13.03 Above high normal 4 .00-10.80 (K/uL) Final RBC 06/09/2024 10:28:26 3.97 4.50-5.25 (M/uL) Final Hemoglobin 06/09/2024 10:28:26 12.8 Below low normal 14 .0-16.8 (g/dL) Final HCT 06/09/2024 10:28:26 39.4 Below low normal 40. 0-48.4 (%) Final MCV 06/09/2024 10:28:26 99.2 82.0-99.5 (fL) Final MCH 06/09/2024 10:28:26 32.2 27.0-34.0 (pg) Final MCHC 06/09/2024 10:28:26 32.5 32.0-36.0 (g/dL) Final RDW 06/09/2024 10:28:26 13.3 11.5-15.5 (%) Final Platelets 06/09/2024 10:28:26 228 140-400 (K /uL) Final MPV 06/09/2024 10:28:26 11.2 6.6-11.1 ( fL) Final Performing [place] [address]
--- OUTSIDE RECORDS SUMMARY | 2024-07-14 23:04 | External Medical Summary ---
Author Name Unknown Address Unknown Organization K01:LABORATORY [facility] [place] - [address] [facility] [address] Laboratory Report Ordering Provider Test Date Status INES PRADO III 06/09/2024 10:28:26 Final Observation Date Value Abnormality Reference (Units ) Status HbA1C 06/09/2024 10:28:26 6.8 Above high normal 4. 0-5.6 (%) Final The use of HbA1c to monitor glycemic status is based on normal hemoglobin and HbA composition. This test should not be used in patients with abnormal hemoglobin that affects the half life of the red blood cell or the in vivo glycation rates. Glucose, estimated average 06/09/2024 10:28:26 148 Above high normal <126 (mg/dL) Choco baxter Performing Location LABORATORY [facility] [place] [facility] [address] [facility] [address]
--- OUTSIDE RECORDS SUMMARY | 2024-07-14 23:04 | External Medical Summary | Summary of Care ---
Author Name Unknown Organization [facility] Address [address] [facility] [place] [address] Phone [phone] Care Team Providers Care Credit Risk Officer Name Role Phone Aidanovember AMERICO Primary Care Provider [phone] Reason for Referral * Precert (Within 10 days (routine)) - Authorized Specialty Diagnoses / Procedures Referred By Contpattie t Referred To Contact Radiology Diagnoses Mass of right lower extremity Procedures MR FEMUR NO JOINT RIGHT WITH WITHOUT IV CONTRAST Johan Chacon III, MD [address] [facility] [place] [address] Referral ID Status Reason Start Date Expiration Date V isits Requested Visits Authorized [id number] Authorized 06/10/2024 999 999 Reason for Visit * Reason Comments Outpatient Testing Encounter Details Date Type Department Care Team (Late st Contact Info) Description 06/09/2024 10:20 AM EDT Laboratory Laboratory [facility]enny [facility] [place] [address] [place] [id number] [place]y Lentz [facility] [address] [facility] [place] [address] Anemia, unspecified type*; Loss of weight; Malaise and fatigue; Mass of right lower extremity Allergies Active Allergy Reactions Criticality Noted Date [...] Dyslipidemia 05/19/2018 Coronary artery disease invo lving [place] coronary artery of [place] heart 05/19/2018 Prediabetes 10/13/2017 Overview: Per Prediabetes protocol #1 Old [place] (myocardial infarction) 06/03/2017 History of bladder cancer 03/24/2017 HTN, goal below 140/90 01/05/2013 Macular puckering 11/10/2012 Nevus, 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/10/2012 documented as of this encounter (statuses as of 06/10/2024) Resolved Problems Problem Noted Date Diagnosed Date Resolved Date Atherosclerotic heart diseas e of [place] coronary artery with other forms of angina [...] as of this encounter Miscellaneous Notes * Addendum Note - Johan Chacon III, MD - 06/10/2024 11:08 AM EDTAddended by: JOHAN CHACON on: 06/10/2024 11:08 AM Modules accepted: Orders documented in this encounter Plan of Treatment Scheduled Orders Name Type Priority Associated Diagnoses Orde r Schedule MR FEMUR NO JOINT RIGHT WITH WITHOUT IV CONTRAST Medical Imaging Routine Mass of right lower extremity Expected: 06/10/2024, Expires: 07/11/2025 VITAMIN B12 Lab Routine Anemia, unspecified type Expected: 06/10/2024 (Approximate), Expires: 06/10/2025 FERRITIN Lab Routine Anemia, unspecified type Expected: 06/10/2024 (Approximate), Expires: 06/10/2025 IRON SCREEN, INCLUDING TIBC Lab Routine Anemia, unspecified type Expected: 06/10/2024 (Approximate), Expires: 06/10/2025 Health Maintenance Due Date Last Done Comments DISCUSS TOBACCO CESSATION (REFER TO SMARTSET #5702) 1945 Adult Wellness Visit 2009 Zoster Vaccines [...] this encounter Medical Devices Implanted Type Area Stitcher Set Up Operator Automatic Device Identifier Shelf Expiration Date Model / Serial / Lot 3dmax Light Mesh Implanted:Qty: 1 on 11/01/2013 at OR [facility] Right: Groin 10/28/2018 [id number] / / [id number] 3dmax Light Mesh Implanted:Qty: 1 on 11/01/2013 at OR [facility] Left: Groin 10/28/2018 [id number] / / [id number] documented as of this encounter Procedures Procedure Name Priority Date/Time Associated Diagnosis Comments TSH WITH FREE T4 IF INDICATED Routine 06/09/2024 10:28 AM EDT Loss of weight Malaise and fatigue HEMOGLOBIN A1C Routine 06/09/2024 10:28 AM EDT Loss of weight Malaise and fatigue CRP (INFLAMMATORY MARKER) Routine 06/09/2024 10:28 AM EDT Loss of weight Malaise and fatigue COMPREHENSIVE METABOLIC PANEL Routine 06/09/2024 10:28 AM EDT Loss of weight Malaise and fatigue ERYTHROCYTE SEDIMENTATION RATE (ESR) Routine 06/09/2024 10:28 AM EDT Loss of weight Malaise and fatigue CBC Routine 06/09/2024 10:28 AM EDT Loss of weight Malaise and fatigue documented in this encounter Results * TSH WITH FREE T4 IF INDICATED (06/09/2024 10:28 AM EDT) TSH 1.11 0.27 - 4.20 uIU/mL 06/09/2024 9:36 PM EDT LABORATORY [facility] Blood Venous blood specimen / Unknown Venipuncture / Unknown 06/09/2024 10:28 AM EDT 06/09/2024 10:28 AM EDT Johan Chacon III, MD LAB BLOOD ORDERABLE S LABORATORY [facility] [address] [place] [address] * (ABNORMAL) COMPREHENSIVE METABOLIC PANEL (06/09/2024 10:28 AM EDT) BUN 14 6 - 20 mg/dL 06/09/2024 11:53 AM EDT [place] [address] CREATININE 0.7 0.6 - 1.2 mg/dL 06/09/2024 11:53 AM EDT [place] [address] EGFR >90 >=60 mL/min 06/09/2024 11:53 AM EDT [facility] Comment:eGFR is calculated b ased on the CKD-EPI 2020 equation. SODIUM 137 135 - 146 mmol/L 06/09/2024 11:53 AM EDT [facility] 56-02 POTASSIUM 4.3 3.5 - 5.1 mmol/L 06/09/2024 11:53 AM EDT [facility] 56-02 CHLORIDE 96(L) 98 - 107 mmol/L 06/09/2024 11:53 AM EDT [facility] 56- CO2 30 22 - 32 mmol/L 06/09/2024 11:53 AM EDT [facility] 56-02 ANION GAP 11 7 - 15 mmol/L 06/09/2024 11:53 AM EDT [place] [address] GLUCOSE 141(H) 70 - 120 mg/dL 06/09/2024 11:[address] EDT [address] Albumin 3.6(L) 3.8 - 5.0 g/dL 06/09/2024 11:53 AM EDT [place] [address] AST 19 10 - 50 U/L 06/09/2024 11:53 [address] EDT [address] Alkaline Phosphatase 83 35 - 130 U/L 06/09/2024 11:53 AM EDT [address] Bilirubin, Total 0.4 <=1.2 mg/dL 06/09/2024 11:53 AM EDT [place] [address] CALCIUM 10.2 8.4 - 10.2 mg/dL 06/09/2024 11:53 AM EDT [place] [address] Protein 6.0 6.0 - 8.3 g/dL 06/09/2024 11:53 AM EDT [place] [address] ALT 22 10 - 50 U/L 06/09/2024 11:53 AM EDT [place] [address] Blood Venous blood specimen / Unknown Venipuncture / Unknown 06/09/2024 10:28 AM EDT 06/09/2024 10:28 AM EDT Johan Chacon III, MD LAB BLOOD ORDERABLE S [place] [address] [address] [place] [address] * (ABNORMAL) CRP (INFLAMMATORY MARKER) (06/09/2024 10:28 AM EDT) CRP (Inflammatory Marker) 63(H) <=5 mg/L 06/09/2024 7:41 PM EDT LABORATORY [facility] Blood Venous blood specimen / Unknown Venipuncture / Unknown 06/09/2024 10:28 AM EDT 06/09/2024 10:28 AM EDT Johan Chacon III, MD LAB BLOOD ORDERABLE S LABORATORY [facility] [address] [place] [address] * (ABNORMAL) ERYTHROCYTE SEDIMENTATION RATE (ESR) (06/09/2024 10:28 AM EDT) Pathologist [facility] ESR 37(H) <20 mm/hour 06/09/2024 5:58 PM EDT LABORATORY [facility] Blood Venous blood specimen / Unknown Venipuncture / Unknown 06/09/2024 10:28 AM EDT 06/09/2024 10:28 AM EDT Johan Chacon III, MD LAB BLOOD ORDERABLE S LABORATORY [facility] [address] [place] [address] * (ABNORMAL) CBC (06/09/2024 10:28 AM EDT) Pathologist [facility] WBC 13.03(H) 4.00 - 10.80 K/uL 06/09/2024 10:38 AM EDT LABORATORY [place] 56 RBC 3.97 4.50 - 5.25 M/uL 06/09/2024 10:38 AM EDT LABORATORY [address] HGB 12.8(L) 14.0 - 16.8 g/dL 06/09/2024 10:38 AM EDT [facility] 56 HCT 39.4(L) 40.0 - 48.4 % 06/09/2024 10:38 AM EDT LABORATORY [place] 56 MCV 99.2 82.0 - 99.5 fL 06/09/2024 10:38 AM EDT LABORATORY [place] 56 MCH 32.2 27.0 - 34.0 pg 06/09/2024 10:38 AM EDT LABORATORY [place] 56 MCHC 32.5 32.0 - 36.0 g/dL 06/09/2024 10:38 AM EDT [facility] 56 RDW 13.3 11.5 - 15.5 % 06/09/2024 10:38 AM EDT LABORATORY [place] 56 PLT 228 140 - 400 K/uL 06/09/2024 10:38 AM EDT [facility] 56- MPV 11.2 6.6 - 11.1 fL 06/09/2024 10:38 AM EDT LABORATORY [place] 56-02 Blood Venous blood specimen / Unknown Venipuncture / Unknown 06/09/2024 10:28 AM EDT 06/09/2024 10:28 AM EDT Johan Chacon III, MD LAB BLOOD ORDERABLE S LABORATORY [place] 56- [address] [place] [address] * (ABNORMAL) HEMOGLOBIN A1C (06/09/2024 10:28 AM EDT) Hemoglobin A1C 6.8(H) 4.0 - 5.6 % 06/09/2024 7:38 PM EDT LABORATORY [facility] Comment:The use of HbA1c to monitor glycemic status is based on normal hemoglobin and HbA composition. This test should not be used in patients with abnormal hemoglobin that affects the half life of the red blood cell or the in vivo glycation rates. Estimated Average Glucose 148(H) <126 mg/dL 06/09/2024 7:38 PM EDT LABORATORY [facility] Blood Venous blood specimen / Unknown Venipuncture / Unknown 06/09/2024 10:28 AM EDT 06/09/2024 10:28 AM EDT Johan Chacon III, MD LAB BLOOD ORDERABLE S LABORATORY [facility] [address] [place] [address] documented in this encounter Visit Diagnoses Diagnosis Anemia, unspecified type- Primary Loss of weight Malaise and fatigue Other malaise and fatigue Mass of right lower extremity documented in this encounter Advance Directives * [...] and were consensually agreed upon. Care Teams Credit Risk Officer Relationship Specialty Start Date End Date Bhavani November AMERICO Olivier [address] [place] [address] PCP - General Physician Installment Account Checker 03/10/24 documented as of this encounter
--- OUTSIDE RECORDS SUMMARY | 2024-07-14 23:04 | External Medical Summary ---
Author Name Unknown Address Unknown Organization [id number]:LABORATORY [place] [address] [place] [address] Laboratory Report Ordering Provider Test Date Status INES PRADO III 06/09/2024 10:28:26 Final Observation Date Value Abnormality Reference (Units ) Status BUN 06/09/2024 10:28:26 14 6-20 (mg/dL) Final Creatinine 06/09/2024 10:28:26 0.7 0.6-1.2 (mg/dL) Final Glomerular filtration rate/1.73 sq M.predicted [Volume Rate/Area] in Serum, Plasma or Blood by Creatinine-based formula (CKD-EPI) 06/09/2024 10:28:26 >90 >=60 (mL/min) Final eGFR is calculated based on the CKD-EPI 2020 equation. Sodium 06/09/2024 10:28:26 137 135-146 (m mol/L) Final Potassium 06/09/2024 10:28:26 4.3 3.5-5.1 (m mol/L) Final Cl 06/09/2024 10:28:26 96 Below low normal 98- 107 (mmol/L) Final CO2 06/09/2024 10:28:26 30 22-32 (mmo l/L) Final Anion gap 06/09/2024 10:28:26 11 7-15 (mmol /L) Final Glucose 06/09/2024 10:28:26 141 Above high normal 70 -120 (mg/dL) Final Albumin 06/09/2024 10:28:26 3.6 Below low normal 3.8 -5.0 (g/dL) Final AST (Aspartate aminotransferase) 06/09/2024 10:28:26 19 10-50 (U/L) Fin al Alk Phos 06/09/2024 10:28:26 83 35-130 (U/ L) Final Bilirubin, Total 06/09/2024 10:28:26 0.4 <=1 .2 (mg/dL) Final Calcium 06/09/2024 10:28:26 10.2 8.4-10.2 ( mg/dL) Final Protein 06/09/2024 10:28:26 6.0 6.0-8.3 (g /dL) Final ALT (Alanine aminotransferase) 06/09/2024 10:28:26 22 10-50 (U/L) Choco baxter Performing Location LAB[facility]ATORY [place] [address] [place] [address]
--- OUTSIDE RECORDS SUMMARY | 2024-07-14 23:04 | External Medical Summary | Summary of Care ---
Author Name Unknown Organization [facility] Address [address] [facility] [place] [address] Phone [phone] Care Team Providers Care Trader Fixed Income Name Role Phone Sukhjinder MORRISON MD, Bennett Pineda Primary Care Provider [phone] Reason for Visit * Reason Onset Date Comments Medication Refill 02/29/2024 Encounter Details Date Type Department Care Team (Late st Contact Info) Description 02/29/2024 Refill Family Practice [facility] [place] [address] [facility] [place] [address] Zenia Beckham PA-C 200 [facility] [place] [address] Dyslipidemia Allergies Active Allergy Reactions Criticality Noted Date Comments Tramadol 01/25/2016 Nausea documented as of this encounter (statuses as of 03/01/2024) Medications Medication Sig Dispensed Refills Start Date [...] 12/21/2023 Active Gabapentin 300 MG Oral Capsule (Neurontin)Indicatio [...] mouth daily. 90 Tablet 1 02/09/2024 Active documented as of this encounter (statuses as of 03/01/2024) Active Problems Problem Noted Date Diagnosed Date Dyslipidemia 05/19/2018 Coronary artery disease invo lving [place] coronary artery of [place] heart 05/19/2018 Prediabetes 10/13/2017 Overview: Per Prediabetes protocol #1 Old [place] (myocardial infarction) 06/03/2017 History of bladder cancer 03/24/2017 HTN, goal below 140/90 01/05/2013 Macular puckering 11/10/2012 Nevus, 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/10/2012 documented as of this encounter (statuses as of 03/01/2024) Resolved Problems Problem Noted Date Diagnosed Date Resolved Date Atherosclerotic heart diseas e of [place] coronary artery with other forms of angina [...] symptoms 11/04/2014 12/22/2014 Overview: S/P TUVP on 1/20/15. Right inguinal hernia 06/27/20132016 NSTEMI (non-ST elevated myoc ardial infarction) 01/05/2013 03/24/2017 LIPOMA SKIN NEC 05/07/2004 03/24/2017 documented as of this encounter (statuses as of 03/01/2024) Immunizations Name Administration Dates Next Due Pneumococcal [...] encounter Miscellaneous Notes * Telephone Encounter - Yesenia Morejon RPh - 03/01/2024 10:26 AM EDTRefused Prescriptions: Disp Refills Atorvastatin Calcium 80 MG Oral Tablet (Li*90 Tab*1 Sig: Take 1Tablet by mouth daily.Refused By: CLAUDY MOREJONNReason for Refusal: Too soon documented in this encounter Plan of Treatment Health Maintenance Due Date Last Done Comments DISCUSS TOBACCO CESSATION (REFER TO SMARTSET #3293) 1945 Zoster Vaccines (2 of 3) 06/24/2017 04/29/2017 DTaP,Tdap,and Td Vaccines (2 - Td or Tdap) 12/15/2022 12/15/2012 COVID-19 Vaccine ( - season) 2023 Influenza Vaccine (FLU shot) (#1) 2024 11/05/2020, [...] this encounter Medical Devices Implanted Type Area Housekeeper Supervisor Device Identifier Shelf Expiration Date Model / Serial / Lot 3dmax Light Mesh Implanted:Qty: 1 on 11/01/2013 at OR [facility] Right: Groin 10/28/2018 [id number] / / [id number] 3dmax Light Mesh Implanted:Qty: 1 on 11/01/2013 at OR [facility] Left: Groin 10/28/2018 [id number] / / [id number] documented as of this encounter Visit Diagnoses [...] and were consensually agreed upon. Care Teams Trader Fixed Income Relationship Specialty Start Date End Date Bennett Slaughter III, MD [address] [place] [address] PCP - General Family Medicine 10/22/18 documented as of this encounter
--- OUTSIDE RECORDS SUMMARY | 2024-07-14 23:04 | External Medical Summary ---
Author Name Unknown Address Unknown Organization K01:[facility] - [address] [place] [address] Laboratory Report Ordering Provider Test Date Status INES PRADO III 06/09/2024 10:28:26 Final Observation Date Value Abnormality Reference (Units ) Status Erythrocyte sedimentation rate by Photometric method 06/09/2024 10:28:26 37 Above high normal <20 (mm/hour) Final Performing Location [facility] - [address] [place] [address]
--- OUTSIDE RECORDS SUMMARY | 2024-07-14 23:04 | External Medical Summary | Summary of Care ---
Author Name Unknown Organization [facility] Address [address] [facility] [place] [address] Phone [phone] Care Team Providers Care Handhole Machine Operator Name Role Phone Zenia Beckham PA-C Primary Care Provider [phone] Reason for Visit * Reason Comments eRx-Medication Refill Encounter Details Date Type Department Care Team (Late st Contact Info) Description 03/24/2024 Refill Family Practice [facility] 200 [facility] [place] [address] Johan Chacon III, MD [address] [facility] [address] Allergies Active Allergy Reactions Criticality Noted Date Comments Tramadol 01/25/2016 Nausea documented as of this encounter (statuses as of 03/24/2024) Medications Medication Sig Dispensed Refills Start Date [...] 09/15/2023 Active Gabapentin 300 MG Oral Capsule (Neurontin)Indica [...] the morning. 90 Tablet 3 03/24/2024 Active Clopidogrel Bisulfate 75 MG Oral Tablet (pLAVix) Take 1 Tablet by mouth in the morning. 90 Tablet 12/21/2023 03/24/2024 Discontinued documented as of this encounter (statuses as of 03/24/2024) Active Problems Problem Noted Date Diagnosed Date Dyslipidemia 05/19/2018 Coronary artery disease invo lving [place] coronary artery of [place] heart 05/19/2018 Prediabetes 10/13/2017 Overview: Per Prediabetes protocol #1 Old [place] (myocardial infarction) 06/03/2017 History of bladder cancer 03/24/2017 HTN, goal below 140/90 01/05/2013 Macular puckering 11/10/2012 Nevus, 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/10/2012 documented as of this encounter (statuses as of 03/24/2024) Resolved Problems Problem Noted Date Diagnosed Date Resolved Date Atherosclerotic heart diseas e of [place] coronary artery with other forms of angina [...] as of this encounter (statuses as of 03/24/2024) Immunizations Name Administration Dates Next Due Pneumococcal [...] encounter Miscellaneous Notes * Telephone Encounter - Chin Gavin [facility] - 03/24/2024 11:20 AM EDT Signed Prescriptions: Disp Refills Clopidogrel Bisulfate 75 MG Oral Tablet (p*90 Tab*3 Sig: Take 1 Tablet by mouth in the morning.Authorizing Provider: JOHAN CHACON III User: CHIN GAVIN documented in this encounter Plan of Treatment Health Maintenance Due Date Last Done Comments DISCUSS TOBACCO CESSATION (REFER TO SMARTSET #3291) 1945 Zoster Vaccines (2 of 3) 06/24/2017 04/29/2017 DTaP,Tdap,and Td Vaccines (2 - Td or Tdap) 12/15/2022 12/15/2012 COVID-19 Vaccine (1 - 2022- season) 2023 Influenza Vaccine (FLU shot) (#1) [...] this encounter Medical Devices Implanted Type Area Levers Lace Machine Operator Device Identifier Shelf Expiration Date Model / Serial / Lot 3dmax Light Mesh Implanted:Qty: 1 on 11/01/2013 at OR [facility] Right: Groin 10/28/2018 [id number] / / [id number] 3dmax Light Mesh Implanted:Qty: 1 on 11/01/2013 at OR [facility] Left: Groin 10/28/2018 [id number] / / [id number] documented as of this encounter Advance Directives [...] and were consensually agreed upon. Care Teams Handhole Machine Operator Relationship Specialty Start Date End Date Bhavani November AMERICO Olivier [address] [place] [address] PCP - General Physician Tank Builder 03/10/24 documented as of this encounter
--- OUTSIDE RECORDS SUMMARY | 2024-07-14 23:04 | External Medical Summary | Summary of Care ---
Author Name Unknown Organization [facility] Address [address] [facility] [place] [address] Phone [phone] Care Team Providers Care General Service Officer Name Role Phone Sukhjinder MORRISON MD, Bennett Pineda Primary Care Provider [phone] Reason for Visit * Reason Onset Date Comments Medication Refill 02/29/2024 Encounter Details Date Type Department Care Team (Late st Contact Info) Description 02/29/2024 Refill Family Practice [facility] [place] 200 [facility] [place] [address] Bennett Slaughter III, MD 200 [place] [address] Allergies Active Allergy Reactions Criticality Noted Date [...] Dyslipidemia 05/19/2018 Coronary artery disease invo lving [place] coronary artery of [place] heart 05/19/2018 Prediabetes 10/13/2017 Overview: Per Prediabetes protocol #1 Old [place] (myocardial infarction) 06/03/2017 History of bladder cancer 03/24/2017 HTN, goal below 140/90 01/05/2013 Macular puckering 11/10/2012 Nevus, 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/10/2012 documented as of this encounter (statuses as of 03/01/2024) Resolved Problems Problem Noted Date Diagnosed Date Resolved Date Atherosclerotic heart diseas e of [place] coronary artery with other forms of angina [...] Encounter - Yesenia Morejon RPh - 03/01/2024 10:25 AM EDTRefused Prescriptions: Disp Refills Lisinopril 40 MG Oral Tablet 90 Tab*1 Sig: Take 1 Tablet by mouth in the morning. In the morning..Refused By: CLAUDY MOREJONNReason for Refusal: Too soon------- documented in this encounter Plan of Treatment Health Maintenance Due Date Last Done Comments DISCUSS TOBACCO CESSATION (REFER TO SMARTSET #3294) 1945 Zoster Vaccines (2 of 3) 06/24/2017 [...] this encounter Medical Devices Implanted Type Area Apparatus Engineering Technologist Device Identifier Shelf Expiration Date Model / Serial / Lot 3dmax Light Mesh Implanted:Qty: 1 on 11/01/2013 at OR [facility] Right: Groin 10/28/2018 [id number] / / [id number] 3dmax Light Mesh Implanted:Qty: 1 on 11/01/2013 at OR [facility] Left: Groin 10/28/2018 [id number] / / [id number] documented as of this encounter Advance Directives [...] and were consensually agreed upon. Care Teams General Service Officer Relationship Specialty Start Date End Date Bennett Slaughter III, MD 200 [facility] [place] [address] PCP - General Family Medicine 10/22/18 documented as of this encounter
--- OUTSIDE RECORDS SUMMARY | 2024-07-14 23:04 | External Medical Summary | Summary of Care ---
Author Name Unknown Organization [facility] Address [address] [facility] [place] [address] Phone [phone] Care Team Providers Care Marking Room Supervisor Name Role Phone Bhavani Zenia Olivier PA-C Primary Care Provider [phone] Reason for Visit * Reason Comments Multiple Complaints Encounter Details Date Type Department Care Team (Late st Contact Info) Description 06/09/2024 9:20 AM EDT Office Visit [facility] [place] [address] [facility] [place] [id number] Bennett Slaughter III, MD [address] [facility] [place] [address] HTN, goal below 140/90*; Coronary artery disease involving [place] coronary artery of [place] heart, unspecified whether angina present; Prediabetes; Dyslipidemia; Skin lump of leg, right; Loss of weight; Malaise and fatigue; Insomnia, unspecified type; Flank pain Allergies Active Allergy Reactions Criticality Noted Date [...] Dyslipidemia 05/19/2018 Coronary artery disease invo lving [place] coronary artery of [place] heart 05/19/2018 Prediabetes 10/13/2017 Overview: Per Prediabetes protocol #1 Old [place] (myocardial infarction) 06/03/2017 History of bladder cancer 03/24/2017 HTN, goal below 140/90 01/05/2013 Macular puckering 11/10/2012 Nevus, 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/10/2012 documented as of this encounter (statuses as of 06/09/2024) Resolved Problems Problem Noted Date Diagnosed Date Resolved Date Atherosclerotic heart diseas e of [place] coronary artery with other forms of angina [...] Day Cigarettes Smokeless Tobacco: Former Quit: 02/22/2015 Tobacco Cessation:Ready to Q uit: Not Asked; Counseling Given: Not Answered Alcohol Use Standard Drinks/Week Comments No 0 [...] on file documented as of this encounter Last Filed Vital Signs Vital Sign Reading Time Taken Comments Blood Pressure 160/68 06/09/2024 9:36 AM EDT Pulse 74 06/09/2024 9:36 AM EDT Temperature 36.8 C (98.3 F) 06/09/2024 9:36 AM ED T Respiratory Rate - - Oxygen Saturation - - Inhaled Oxygen Concentration - - Weight 86.3 kg (190 lb 3.2 oz) 06/09/2024 9:36 A M EDT Height - - Body Mass Index 26.45 12/31/2023 11:04 AM EDT documented in this encounter Progress Notes * Sukhjinder III, Bennett Pineda MD - 06/09/2024 10:11 AM EDT Subjective: Willy Vinson is a 79 year old male. Chief Complaint Patient presents with Multiple Complaints HPI: Follow-up hypertension multiple concerns has had left flank area discomfort for 2-3 weeks no injury that he is aware of no change in urination as noticed a full lump in his right for the past week has felt more nauseated has been more constipated with his bowel movements hip and back pain are bothersome gabapentin was not helpful although only got up to 600 mg before discontinuing he is losing weight no apparent fever or chills has had Tylenol Arthritis might be of some milder benefit sleep issues both staying asleep and getting to sleep PMH: Patient Active Problem List Diagnosis Macular puckering Nevus, choroidal HTN, goal below 140/90 History of bladder cancer Old [place] (myocardial infarction) Prediabetes Dyslipidemia Coronary artery disease involving [place] coronary artery of [place] heart Current Outpatient Medications Medication Sig Dispense Refill nitroglycerin (NITROSTAT) 0.[address] 1 Tab under the tongue every 5 minutes as needed for Pain, Chest. 25 Tab 1 EQ ASPIRIN ADULT LOW DOSE 81 MG TBEC Take 1 tablet by mouth once daily 100 Tab 0 Terazosin HCl 2 MG Oral Capsule TAKE 1 CAPSULE BY MOUTH AT BEDTIME 90 Capsule 3 Gabapentin 300 MG Oral Capsule (Neurontin) Take 1 Capsule by mouth in the morning and 1 Capsule in the evening. 60 Capsule 5 Lisinopril 40 MG Oral Tablet Take 1 Tablet by mouth in the morning. In the morning.. 90 Tablet 1 Carvedilol 25 MG Oral Tablet (Coreg) Take 1 Tablet by mouth in the morning and 1 Tablet before bedtime. With food.. 180 Tablet 1 Indapamide 2.5 MG Oral Tablet (Lozol) Take 1 Tablet by mouth in the morning. 90 Tablet 1 Atorvastatin Calcium 80 MG Oral Tablet (Lipitor) Take 1 Tablet by mouth daily. 90 Tablet 1 Clopidogrel Bisulfate 75 MG Oral Tablet (pLAVix) Take 1 Tablet by mouth in the morning. 90 Tablet 3 traZODone HCl 50 MG Oral Tablet (Desyrel) Take 1 Tablet by mouth at bedtime. 30 Tablet 5 No current facility-administered medications for this visit. Review of patient's allergies indicates: Allergen Reactions Ultram [Tramadol] Nausea Past Medical History: Diagnosis Date Hypercholesterolemia Hypertension LIPOMA SKIN NEC 05/07/2004 NSTEMI (non-ST elevated myocardial infarction) (HCC) 12/27/2012 STEMI (ST elevation myocardial infarction) (HCC) Past Surgical History: Procedure Laterality Date CARDIAC CATH-CARDIOLOGY ONLY 12/27/2012 [facility] CYSTOSCOPY 09/15/2014 CYSTOSCOPY 12-22-2014 CYSTOSCOPY 03-19-2015 CYSTOSCOPY 06/25/2015 CYSTOSCOPY 09-24-2015 CYSTOSCOPY 01-21-2016 CYSTOSCOPY/TREAT LGE BLADDER TUMOR Right 09/19/2014 CYSTOURETHROSCOPY WITH FULGURATION LARGE BLADDER TUMOR performed by Steve Chamorro MD at [facility] CYSTOURETHROSCOPY W/BIOPSY 03-23-2015 INFORMATION 11/12/2013 11/12/2013 fx left wrist , fell at home LAPAROSCOPY; REPAIR INITIAL INGUINAL HERNIA 11/01/2013 11/01/2013 LAPAROSCOPIC REPAIR INGUINAL HERNIA INITIAL performed by James Ardon MD at [facility] REMOVAL OF PROSTATE (TURP) N/A 09/19/2014 TRANSURETHRAL RESECTION PROSTATE ELECTROSURGICAL performed by Steve Chamorro MD at [facility] REMOVE CATARACT, INSERT LENS PROSTH 2009 OU-Dr. Bustamante Objective: The patient is a 79 year old male BP 160/68 | Pulse 74 | Temp 36.8 C (98.3 F) | Wt 86.3 kg (190 lb 3.2 oz) | BMI 26.45 kg/m | BSA 2.08 m General: alert, healthy, and no distress Eye Exam: PERRLA, extraocular movements intact, conjunctiva are pink and non- injected, sclera clear Oropharynx: no exudate, no erythema, lips, buccal mucosa, and tongue normal, and mucous membranes are moist Heart: regular rate & rhythm, no murmur, and no gallops Lungs: lungs clear to auscultation Abdomen: abdomen soft, normal bowel sounds, no masses or organomegaly, and marked left flank muscletenderness Extremities: Without cyanosis clubbing edema Tender quarter-sized lump medial right thigh ASSESSMENT: (I10) HTN, goal below 140/90 (primary encounter diagnosis) (I25.10) Coronary artery disease involving [place] coronary artery of [place] heart, unspecified whether angina present (R73.03) Prediabetes (E78.5) Dyslipidemia (R22.41) Skin lump of leg, right (R63.4) Loss of weight (R53.81, R53.83) Malaise and fatigue (G47.00) Insomnia, unspecified type PLAN: Check lab work comprehensive sed rate CRP TSH CBC A1c had been out of meds has picking up today as far as hypertension will make follow-up with nurse visit 2 weeks ultrasound thigh lump begin trazodone 50 mg at bedtime let us know how that works would take arthritis Tylenol 2 twice daily regularly on a bad day could do it 3 times diclofenac gel discussed does not feel optic getting flu shot Total time 42 minutes Follow up in 6 month(s). Bennett Slaughter III, MD * Chelsea Perkins RN - 06/09/2024 9:36 AM EDT Back pain, nauseous, BMs are irregular, no appetite, can't eat. Started 3 weeks ago. Lump on inner right thigh Pt is out of 2 meds. Will be picking them up today. documented in this encounter Plan of Treatment Upcoming Encounters Date Type Department Care Team (Late st Contact Info) Description 06/09/2024 3:30 PM EDT [address] [phone] Pending Results Name Type Priority Associated Diagnoses Date /Time HEMOGLOBIN A1C Lab Routine Loss of weight Malaise and fatigue 06/09/2024 10:28 AM EDT CBC Lab Routine Loss of weight Malaise and [...] Malaise and fatigue 06/09/2024 10:28 AM EDT Scheduled Orders Name Type Priority Associated Diagnoses Orde r Schedule US EXTREMITY, NON-VASCULAR LIMITED Medical Imaging Routine Skin lump of leg, right Expected: 06/09/2024, Expires: 07/10/2025 HEMOGLOBIN A1C Lab Routine Loss of weight Malaise and fatigue Expected: 06/09/2024 (Approximate), Expires: 06/09/2025 CBC Lab Routine Loss of weight Malaise and fatigue Expected: 06/09/2024 (Approximate), Expires: 06/09/2025 ERYTHROCYTE SEDIMENTATION RATE (ESR) Lab Routine Loss of weight Malaise and fatigue Expected: 06/09/2024 (Approximate), Expires: 06/09/2025 CRP (INFLAMMATORY MARKER) Lab Routine Loss of weight Malaise and fatigue Expected: 06/09/2024 (Approximate), Expires: 06/09/2025 COMPREHENSIVE METABOLIC PANEL Lab Routine Loss of weight Malaise and fatigue Expected: 06/09/2024 (Approximate), Expires: 06/09/2025 TSH WITH FREE T4 IF INDICATED Lab Routine Loss of weight Malaise and fatigue Expected: 06/09/2024 (Approximate), Expires: 06/09/2025 URINALYSIS WITH MICROSCOPIC EXAM Lab Routine Loss of weight Malaise and fatigue Expected: 06/09/2024 (Approximate), Expires: 06/09/2025 Health Maintenance Due Date Last Done Comments DISCUSS TOBACCO CESSATION (REFER TO SMARTSET #[id number]) 1945 Adult Wellness Visit 2009 Zoster Vaccines [...] this encounter Medical Devices Implanted Type Area Gate Watchman Device Identifier Shelf Expiration Date Model / Serial / Lot 3dmax Light Mesh Implanted:Qty: 1 on 11/01/2013 at [facility] Right: Groin 10/28/2018 [id number] / / [id number] 3dmax Light Mesh Implanted:Qty: 1 on 11/01/2013 at OR [facility] Left: Groin 10/28/2018 [id number] / / [id number] documented as of this encounter Visit Diagnoses Diagnosis HTN, goal below 140/90- Primary Unspecified essential hypertension Coronary artery disease involving [place] coronary artery of [place] heart, unspecified whether angina present Prediabetes Other abnormal glucose Dyslipidemia Other and unspecified hyperlipidemia Skin lump of leg, right Loss of weight Malaise and fatigue Other malaise and fatigue Insomnia, unspecified type Flank pain Abdominal pain, unspecified site documented in this encounter Advance Directives * [...] and were consensually agreed upon. Care Teams Marking Room Supervisor Relationship Specialty Start Date End Date Zenia Beckham PA-C [address] [place] [id number] PCP - General Physician Sleeve Setter Lockstitch 03/10/24 documented as of this encounter"
[2024-07-15] MEDS: LORazepam 2 MG/1 ML VIAL IV PRN (01:12)
[2024-07-15] MEDS: TERAZOSIN HCL 1 MG CAP PO SCH (07:33)
[2024-07-15] MEDS: INDAPAMIDE 1.25 MG TAB PO SCH (07:33)
[2024-07-15] MEDS: lisinopril 40 MG TAB PO SCH (07:33)
--- NOTE | 2024-07-15 13:15 | Discharge Summary ---
Discharge Summary Date of Service July 15, 2024 Principal Dx & Hospital Course #1 = Principal Diagnosis (1) HTN (hypertension): (2) Hyperlipemia: (3) CAD (coronary artery disease): (4) S/P drug eluting coronary stent placement: (5) S/P PTCA (percutaneous transluminal coronary angioplasty): (6) STEMI (ST elevation myocardial infarction): (7) Lung mass: (8) Pancreatic mass: Plan Assessment and plan: Heavily suspected metastatic disease Lung mets/pancreatic mass After extensive discussion with the patient and patient's family, the patient will be initiated on comfort measures credit collections manager/hospice consulted for further evaluation and treatment Discharge today with [facility] home hospice services -Spoke to his and [facility] provider at bedside HTN: Discontinue carvedilol/lisinopril No further workup/lab work/heart monitoring indicated at this time Patient is a DNR/DNI DVT prophylaxis: SCDs Patient was discharged to home hospice with [facility] home hospice services. His prognosis is terminal. Notes For Next Care Provider Discharged to hospice. Medication Changes From Visit See list Admission HPI Per Admitting Provider The patient is a 79-year-old male with a past medical history of bladder CA, RI, HTN, RI, and recently discovered lung masses/pancreatic mass/metastatic disease recently diagnosed on 06/17/2024 when he was evaluated at [facility] per the patient and patient family. At this point, they were following with the PCP and they did not want any further oncology workup. The patient was being managed on oral pain meds at this time. On exam, patient reports some lower abdominal pain but reports that shortness of breath is improved. He is on 2 L of oxygen. The patient and the patient's family reports that the oxycodone was working up until a few days ago. They were also having trouble getting a refill from the patient's primary care provider. The patient's daughter also reports that he has not been eating anything over the past few days and having issues with constipation as well. On arrival to the ED, labs were remarkable for WBC 16, hemoglobin 11.5, calcium 11.8, AST 12 Chest CTA showed: 1. Left posterior hilar/left upper lobe mass measures 6.9 cm suspicious for primary bronchogenic carcinoma or less likely a large metastatic focus. 2. Multifocal pulmonary metastasis. 3. Pulmonary emphysema with tracheobronchial secretions, bronchitis and mucous plugging. 4. Cardiomegaly with equivocal mild interstitial pulmonary edema. 5. Osteolytic T5 metastatic lesion with mild vertebral body height loss. 6. Large pancreatic mass suggestive of metastasis. Please refer to the same day CT abdomen and pelvis study for additional findings. 7. No pulmonary emboli identified. Chest x-ray Showed: 1. Interval development of a 5 cm left perihilar mass-like abnormality. This is likely neoplastic and could represent a primary lung malignancy or pathologic lymph node. Multiple pulmonary nodules which are suspicious for metastatic disease. A chest CT with contrast is recommended for further evaluation. 2. Nodular right lower lung opacity which could reflect a pulmonary nodule or focus of pneumonia. 3. Pulmonary vascular congestion. 4. Chronic changes within the right lung. Abdomen/pelvis CT showed: 1. Numerous pulmonary metastases within the lung bases, retroperitoneal lymphadenopathy and hypoenhancing ill-defined left renal and pancreatic tail masses. These findings are neoplastic and favor metastatic disease. Metastatic lung cancer is favored given the dominant left lower lobe lesion depicted on chest CT. Although less likely, metastatic pancreatic or renal cell carcinoma could appear similar. Oncology consultation is recommended. 2. Perinephric and presacral/perirectal stranding. The findings suggest mild volume overload. 3. No bowel obstruction. No bowel wall thickening. 4. Cholelithiasis. Extensive discussion with Dr. Montez, the patient, the patient's daughter and the patient's about comfort measures versus further workup. Initially the and the daughter wanted to take the patient home but after further discussion, the patient will be admitted as a DNR/DNI and hospice and case management will be consulted to help facilitate discharge home on hospice. Primary concern is pain control. Discharge Exam NEEDS EDITING General- adult elderly male seen at bedside. He is essentially unresponsive except for tactile and verbal stimulation he will open his eyes. Cachectic, marked ill appearance. Head- atraumatic Heart- regular rhythm; Extremities- no pretibial edema, Neuro-minimal responsiveness. Skin- warm & dry Updated Medication List Medication Instructions Recorded Confirmed Type nitroglycerin 0.4 mg sublingual 0.4 mg sublingual Q5M PRN Chest 05/11/18 07/14/24 History tablet Pain lorazepam 1 mg/0.5 mL oral syringe 1 mg (0.5 mL) PO TID PRN anxiety 07/14/24 Rx (FOR ORAL USE ONLY) #30 ea mirtazapine 15 mg tablet 15 mg PO HS 07/14/24 07/14/24 History morphine 20 mg/5 mL (4 mg/mL) oral 5 mg (1.25 mL) PO Q6H 7 days #35 mL 07/14/24 Rx solution ondansetron HCl 4 mg tablet 4 mg PO Q6H 7 days #28 tabs 07/14/24 Rx ondansetron HCl 4 mg tablet 4 mg PO Q6H PRN Nausea And Vomiting 07/14/24 07/14/24 History terazosin 2 mg capsule 2 mg PO DAILY 07/14/24 07/14/24 History hyoscyamine sulfate 0.125 mg 0.125 mg PO Q4H PRN dyspepsia #14 07/15/24 Rx tablet (Levsin) tabs lorazepam 2 mg/mL oral concentrate 0.5 mg (0.25 mL) PO Q4H PRN 07/15/24 Rx (Lorazepam Intensol) alcohol withdrawal #30 mL morphine concentrate 100 mg/5 mL 5 mg (0.25 mL) PO Q3H PRN pain #10 07/15/24 Rx (20 mg/mL) oral solution mL Hospital Stay Data Consultations 07/14/24 12:29 ED Decision to Admit Stat Diagnostic Imagining Performed 07/14/24 10:10 CT abd pelvis IV con only Stat 07/14/24 10:40 CT angio chest PE protocol Stat Pending Results Patient Have Any Pending Studies at Discharge: No Discharge Instructions Given to Patient (Per Discharging Provider) Patient discharged to [facility] home hospice agency Total Time Total Time Spent Total Time Spent (In Minutes): A total 0f 60 minutes spent in discharge planning
[2024-07-15] MEDS: LORazepam 2 MG/1 ML VIAL IV STA (13:16)
--- NOTE | 2024-07-15 16:26 | Electrocardiogram Report ---
Test Reason : Blood Pressure : */* mmHG Vent. Rate : 101 BPM Atrial Rate : 101 BPM P-R Int : 146 ms QRS Dur : 86 ms QT Int : 344 ms P-R-T Axes : 56 -2 53 degrees QTcB Int : 446 ms Sinus tachycardia Possible Left atrial enlargement Possible Old Septal infarct Abnormal ECG When compared with ECG of 12-May-2018 08:13, Borderline Criteria for Septal infarct now present Criteria for Inferior infarct no longer present T-wave inversion in Inferior leads no longer present Confirmed by Power Elias ([id number]) on 07/15/2024 4:26:06 PM Referred By: Confirmed By: Power Elias
[2024-07-15] MEDS ORDERED: GLYCOPYRROLATE 0.2 MG/ML VIAL IV PRN (16:33)
[2024-07-15] MEDS: GLYCOPYRROLATE 0.2 MG/ML VIAL ONE (16:45)
--- NOTE | 2024-07-15 17:17 | Hospitalist Progress Note ---
Date of Service July 15, 2024 Assessment & Plan (1) HTN (hypertension): (2) Hyperlipemia: (3) CAD (coronary artery disease): (4) S/P drug eluting coronary stent placement: (5) S/P PTCA (percutaneous transluminal coronary angioplasty): (6) STEMI (ST elevation myocardial infarction): (7) Lung mass: (8) Pancreatic mass: Plan Assessment and plan: Heavily suspected metastatic disease Lung mets/pancreatic mass After extensive discussion with the patient and patient's family, the patient will be initiated on comfort measures customer acquisition manager/hospice consulted for further evaluation and treatment Discharge today with [facility] home hospice services -Spoke to his and [facility] provider at bedside -Continue comfort measures. Patient is actively dying. HTN: Discontinue carvedilol/lisinopril No further workup/lab work/heart monitoring indicated at this time Patient is a DNR/DNI DVT prophylaxis: SCDs Total time of 55 minutes was spent in care coordination Admission and Anticipated Discharge Date Admission Date: July 14, 2024 Subjective 79-year-old male admitted for comfort care measures. Patient has diffuse metastatic burden. Plan is for home with home hospice. Patient was originally set up for discharge today for home with home hospice. Met with the family and [facility] home hospice personnel. Unfortunately the patient has taken a turn for the worse and is actively dying so the discharge is placed on hold. Review of Systems 2 Review of Systems: Review of systems unobtainable from the patient. History from family Physical Exam Physical Exam: *General- adult elderly male seen at bedside. He is essentially unresponsive except for tactile and verbal stimulation he will open his eyes. Cachectic, marked ill appearance. Head- atraumatic Heart- regular rhythm; Extremities- no pretibial edema, Neuro-minimal responsiveness. Skin- warm & dry Results & Data Results & Data Vital Signs (Past 12 Hours) Vital Signs Temp Pulse Resp BP Pulse Ox O2 Del Method O2 Flow Rate 07/15/24 13:20 37 C 91 H 18 162/65 H 95 07/15/24 07:27 Nasal Cannula 3 Diagnostic Findings Laboratory Results WBC 16.87 K/ul (4.8-10.8) H 07/14/24 10:13 RBC 3.55 M/uL (4.70-6.10) L 07/14/24 10:13 Hgb 11.5 g/dl (14.0-18.0) L 07/14/24 10:13 POC Hgb 11.9 g/dl (14.0-18.0) L 07/14/24 10:24 Hct 33.9 % (42.0-52.0) L 07/14/24 10:13 POC Hct 35 % (42-52) L 07/14/24 10:24 MCV 95.5 fL (80.0-100.0) 07/14/24 10:13 MCH 32.4 pg (25.0-34.0) 07/14/24 10:13 MCHC 33.9 g/dL (32.0-36.0) 07/14/24 10:13 RDW Std Deviation 47.4 fL (36.4-46.3) H 07/14/24 10:13 RDW Coeff of Luis Eduardo 13.4 % (11.5-14.5) 07/14/24 10:13 Plt Count 265 K/uL (130-400) 07/14/24 10:13 MPV 11.4 fL (9.4-12.4) 07/14/24 10:13 Immature Gran % (Auto) 1.7 % 07/14/24 10:13 Neut % (Auto) 40.9 % 07/14/24 10:13 Lymph % (Auto) 49.9 % 07/14/24 10:13 Hardin % (Auto) 7.3 % 07/14/24 10:13 Eos % (Auto) 0.1 % 07/14/24 10:13 Baso % (Auto) 0.1 % 07/14/24 10:13 Neut # (Auto) 6.90 K/uL (1.40-6.50) H 07/14/24 10:13 Lymph # (Auto) 8.42 K/uL (1.20-3.40) H 07/14/24 10:13 Hardin # (Auto) 1.23 K/uL (0.11-0.59) H 07/14/24 10:13 Eos # (Auto) 0.01 K/uL (0.00-0.50) 07/14/24 10:13 Baso # (Auto) 0.02 K/uL (0.00-0.20) 07/14/24 10:13 Immature Gran # (Auto) 0.29 K/uL (0.01-0.20) H 07/14/24 10:13 PT 12.8 Seconds (9.0-12.0) H 07/14/24 10:13 INR 1.2 (0.9-1.1) H 07/14/24 10:13 POC Sodium 135 mmol/L (135-144) 07/14/24 10:24 Sodium 137 mmol/L (136-145) 07/14/24 10:13 POC Potassium 3.5 mmol/L (3.3-5.0) 07/14/24 10:24 Potassium 3.7 mmol/L (3.5-5.1) 07/14/24 10:13 POC Chloride 91 mmol/L (101-112) L 07/14/24 10:24 Chloride 94 mmol/L (98-107) L 07/14/24 10:13 Carbon Dioxide 38 mmol/L (21-32) H 07/14/24 10:13 POC Total CO2 32 mmol/L (24-31) H 07/14/24 10:24 Anion Gap 5 (3-11) 07/14/24 10:13 POC Anion Gap 16.0 mmol/L (16-25) 07/14/24 10:24 POC BUN 17 mg/dl (7-18) 07/14/24 10:24 BUN 16 mg/dl (6-23) 07/14/24 10:13 Creatinine 0.73 mg/dl (0.6-1.4) 07/14/24 10:13 POC Creatinine 0.8 mg/dl (0.6-1.3) 07/14/24 10:24 Est Cr Clr Drug Dosing 84.5 ml/min 07/14/24 10:13 eGFR 91.40 07/14/24 10:13 BUN/Creatinine Ratio 21.9 (10-20) H 07/14/24 10:13 Glucose 125 mg/dl (70-99(Fasting)) H 07/14/24 10:13 POC Glucose (other) 130 mg/dl (70-99) H 07/14/24 10:24 Calcium 11.8 mg/dl (8.6-10.3) H 07/14/24 10:13 POC Ioniz Calcium Evelia 1.47 mmol/l (1.12-1.32) H 07/14/24 10:24 Total Bilirubin 0.6 mg/dl (0.2-1.0) 07/14/24 10:13 AST 12 U/L (13-39) L 07/14/24 10:13 ALT 15 U/L (7-52) 07/14/24 10:13 Alkaline Phosphatase 80 U/L (34-104) 07/14/24 10:13 Troponin I High Sens 12.1 pg/ml (0-20) 07/14/24 10:13 Total Protein 6.0 gm/dl (6.0-8.3) 07/14/24 10:13 Albumin 3.2 gm/dl (3.4-5.0) L 07/14/24 10:13 Globulin 2.8 gm/dl (2.5-4.0) 07/14/24 10:13 Albumin/Globulin Ratio 1.1 (0.9-2) 07/14/24 10:13 Lipase 47 U/L (11-82) 07/14/24 10:13 Urine Color Yellow 07/14/24 10:27 Urine Appearance Clear (Clear) 07/14/24 10:27 Urine pH 6.5 (4.5-7.5) 07/14/24 10:27 Ur Specific Ingalls 1.017 (1.000-1.030) 07/14/24 10:27 Urine Protein 2+ (Negative) H 07/14/24 10:27 Urine Glucose (UA) Negative (Negative) 07/14/24 10:27 Urine Ketones Negative (Negative) 07/14/24 10:27 Urine Blood Negative (Negative) 07/14/24 10:27 Urine Nitrite Negative (Negative) 07/14/24 10:27 Urine Bilirubin Negative (Negative) 07/14/24 10:27 Urine Urobilinogen Negative (Negative) 07/14/24 10:27 Ur Leukocyte Esterase Negative (Negative) 07/14/24 10:27 Urine WBC (Auto) 0-5 /hpf (0-5) 07/14/24 10:27 Urine RBC (Auto) 3-5 /hpf (0-2) H 07/14/24 10:27 U Hyaline Cast (Auto) 0-2 /lpf (0-2) 07/14/24 10:27 U Epithel Cells (Auto) 0-2 /hpf (0-2) 07/14/24 10:27 Urine Bacteria (Auto) None Seen (None Seen) 07/14/24 10:27 Impressions Abdomen/Pelvis CT 07/14/24 10:10 CT OF THE ABDOMEN AND PELVIS WITH CONTRAST CLINICAL HISTORY: Abdominal pain. COMPARISON STUDY: CT of the abdomen and pelvis December 27, 2012. TECHNIQUE: Following IV administration of 120 mL of Optiray, axial images of the abdomen and pelvis were obtained from the lung bases to the proximal femurs. Images were reviewed in the axial, sagittal, and coronal planes. IV contrast was administered without complication. Automated exposure control was utilized for the study. A dose lowering technique was utilized adhering to the principles of ALARA. CT DOSE: 2194.64 mGy.cm FINDINGS: Please note that the chest CT will be reported separately. There are numerous nodules, many of which appear necrotic, within the lower lungs, including a 2.7 cm right middle lobe lesion on image 31 of 413. No pneumatosis, free air or portal venous gas is present. There are no hepatic lesions. There are gallstones within the gallbladder without evidence for acute cholecystitis. Bilateral adrenal gland nodularity is unchanged since CT of December 27, 2012. Multiple enlarged retroperitoneal lymph nodes are noted. The largest is a necrotic left para-aortic lymph node on image 130 that measures 3 x 2.7 cm. An ill-defined pancreatic tail lesion measures 4.2 x 3.6 cm. An ill-defined hypoenhancing left renal mass measures 5.4 x 4.5 cm. No suspicious right renal lesions are present. There is no hydronephrosis. Bilateral perinephric stranding is noted. There is also a sacral/perirectal stranding and fluid. No fluid collection is present with there is no evidence for a bowel obstruction. Left hip arthroplasty is incidentally noted. No suspicious lesions within the lumbar spine, pelvis or hips are identified by CT. IMPRESSION: 1. Numerous pulmonary metastases within the lung bases, retroperitoneal lymphadenopathy and hypoenhancing ill-defined left renal and pancreatic tail masses. These findings are neoplastic and favor metastatic disease. Metastatic lung cancer is favored given the dominant left lower lobe lesion depicted on chest CT. Although less likely, metastatic pancreatic or renal cell carcinoma could appear similar. Oncology consultation is recommended. 2. Perinephric and presacral/perirectal stranding. The findings suggest mild volume overload. 3. No bowel obstruction. No bowel wall thickening. 4. Cholelithiasis. ACT 112: Negative or not required by law. Electronically signed by: Asael Humphrey M.D. 07/14/2024 11:35 AM Chest X-Ray 07/14/24 10:10 XR chest 1V portable CLINICAL HISTORY: Chest pain, nonspecific COMPARISON STUDY: Chest CT December 27, 2012. Chest radiograph May 12, 2018. FINDINGS: There is no pneumothorax. A trace right pleural effusion is unchanged. This is likely chronic. Linear right lung densities are unchanged and favor scarring. A 5 cm left perihilar mass-like abnormality has developed. Multiple pulmonary nodules have also developed, measuring up to 1.9 cm. There is asymmetric right lower lung opacity. Cardiac size is stable. There is mild interstitial thickening. IMPRESSION: 1. Interval development of a 5 cm left perihilar mass-like abnormality. This is likely neoplastic and could represent a primary lung malignancy or pathologic lymph node. Multiple pulmonary nodules which are suspicious for metastatic disease. A chest CT with contrast is recommended for further evaluation. 2. Nodular right lower lung opacity which could reflect a pulmonary nodule or focus of pneumonia. 3. Pulmonary vascular congestion. 4. Chronic changes within the right lung. ACT 112: Positive. There are findings on this exam that require communication between the performing entity and the patient following Patient Test Result Information Act ([place] Act 112) guidelines. Electronically signed by: Asael Humphrey M.D. 07/14/2024 10:33 AM Chest CTA 07/14/24 10:40 CT angio chest PE protocol HISTORY: 79 years-old Male with PE. Acute shortness of breath TECHNIQUE: Multiple CTA images of the chest were obtained after the intravenous administration of 120 ml Optiray. Coronal and sagittal MIPS were obtained from the axial data set and were submitted for review. All measurements were obtained according to NASCET criteria. A dose lowering technique was utilized adhering to the principles of ALARA. COMPARISON: CT abdomen and pelvis of same day FINDINGS: CTA: Mild cardiomegaly. No pericardial effusion. [id number] coronary artery calcifications. Atherosclerosis of the thoracic aorta without aneurysm or dissection. Unremarkable pulmonary artery. No pulmonary emboli identified. CT CHEST: Subcentimeter hypodense thyroid nodules. Subcentimeter mediastinal and hilar lymph nodes. Chronic appearing pleural thickening of the right hemithorax with pleural calcifications. Chronic appearing right lung volume loss with fibrosis and pulmonary emphysema. Bronchial wall thickening suggestive of bronchitis with areas of multifocal mucus plugging. There is a dominant centrally necrotic mass arising from the posterior left hilum involving the left upper lobe abutting and crossing the adjacent fissure overall measuring approximately 6.9 x 6.0 x 5.7 cm. There are adjacent satellite nodules along superior margin of the mass. Numerous pulmonary metastasis extending to a subpleural distributions including a 2.5 cm lesion of the lingula on image 113. A 2.3 cm right-sided lesion is noted on image 89 series 5. Body wall edema. Probable sebaceous cystr of the back on image 95 measures 1.8 cm. Pancreatic mass. Stable nodular thickening of the adrenal glands. Osteolytic skeletal lesions at T5 with cortical destruction and left lateral vertebral body soft tissue component. There is only minimal vertebral body height loss. IMPRESSION: 1. Left posterior hilar/left upper lobe mass measures 6.9 cm suspicious for pr imary bronchogenic carcinoma or less likely a large metastatic focus. 2. Multifocal pulmonary metastasis. 3. Pulmonary emphysema with tracheobronchial secretions, bronchitis and mucous plugging. 4. Cardiomegaly with equivocal mild interstitial pulmonary edema. 5. Osteolytic T5 metastatic lesion with mild vertebral body height loss. 6. Large pancreatic mass suggestive of metastasis. Please refer to the same day CT abdomen and pelvis study for additional findings. 7. No pulmonary emboli identified. ACT 112: Negative or not required by law. The above report was generated using voice recognition software. It may contain grammatical, syntax or spelling errors. Electronically signed by: Delon Carr M.D. 07/14/2024 11:38 AM Medications Administered Current Inpatient Medications Acetaminophen (Acetaminophen 325 Mg Tab) 650 mg PO Q6H PRN PRN Reason: Fever 37.8C or Above Stop: 08/13/24 14:13 Carvedilol (Carvedilol 25 Mg Tab) 25 mg PO BID VERONICA Stop: 08/13/24 20:59 Last Admin: 07/15/24 07:33 Dose: Not Given Glycopyrrolate (Glycopyrrolate 0.2 Mg/Ml Vial) 0.2 mg IV PRN PRN PRN Reason: secretions Stop: 08/14/24 16:32 Indapamide (Indapamide 1.25 Mg Tab) 2.5 mg PO QAM VERONICA Stop: 08/14/24 08:59 Last Admin: 07/15/24 07:33 Dose: Not Given Lisinopril (Lisinopril 40 Mg Tab) 40 mg PO DAILY VERONICA Stop: 08/14/24 08:59 Last Admin: 07/15/24 07:33 Dose: Not Given Lorazepam (Lorazepam 2 Mg/1 Ml Vial) 0.5 mg IV Q4H PRN PRN Reason: Anxiety/Agitation Stop: 08/13/24 14:13 Last Admin: 07/15/24 10:41 Dose: 0.5 mg Mirtazapine (Mirtazapine Tab 15 Mg Tab) 15 mg PO HS VERONICA Stop: 08/13/24 20:59 Last Admin: 07/14/24 22:09 Dose: Not Given Miscellaneous (Check Scopolamine Patch Placement) 1 each N/A QS VERONICA Stop: 08/15/24 00:00 Miscellaneous (Remove Transderm-Scop Patch) 1 each N/A Q72H VERONICA Stop: 08/17/24 16:58 Morphine Sulfate (Morphine Sulfate 10 Mg/0.5 Ml Udp) 5 mg PO Q3H PRN PRN Reason: Pain or Respiratory Distress Stop: 07/28/24 14:13 Morphine Sulfate (Morphine Sulfate 4 Mg/Ml 1 Ml Carp\Vial) 5 mg IV Q3H PRN PRN Reason: Pain or respiratory distress Stop: 07/28/24 14:57 Last Admin: 07/15/24 12:48 Dose: 5 mg Ondansetron HCl (Ondansetron Inj 2 Mg/Ml 2 Ml Vial) 4 mg IV Q4H PRN PRN Reason: Nausea &/or Vomiting Stop: 08/13/24 14:13 Last Admin: 07/14/24 23:46 Dose: 4 mg Scopolamine (Scopolamine 1 Mg/72 Hr Tdsy Patch) 1 patch TD Q72H VERONICA Stop: 08/14/24 16:59 Terazosin HCl (Terazosin Hcl 1 Mg Cap) 2 mg PO DAILY VERONICA Stop: 08/14/24 08:59 Last Admin: 07/15/24 07:33 Dose: Not Given Trazodone HCl (Trazodone Hcl 50 Mg Tab) 50 mg PO HS VERONICA Stop: 08/13/24 20:59 Last Admin: 07/14/24 22:09 Dose: Not Given
[2024-07-15] MEDS: SCOPOLAMINE 1 MG/72 HR TDSY PATCH TD SCH (18:07)
[2024-07-16] MEDS ORDERED: CHECK SCOPOLAMINE PATCH PLACEMENT SCH
== END 2024-07-15 18:58 | disposition hospice, inpatient (51) | DRG 951 ==
LOC: ED 10:00 → SUATTDRO 11:58 → 2W 11:58

== ENCOUNTER 2024-07-15 19:00 | Inpatient (IN) ==
[2024-07-15] MEDS ORDERED: GLYCOPYRROLATE 0.2 MG/ML VIAL IV PRN (19:14)
[2024-07-15] MEDS ORDERED: ONDANSETRON INJ 2 MG/ML 2 ML VIAL IV PRN (19:14)
--- NOTE | 2024-07-15 19:24 | History & Physical Report ---
Date of Service July 15, 2024 Assessment & Plan (1) Pancreatic mass: (2) Lung mass: (3) Metastatic cancer: (4) Admission for hospice care: Plan: Suspected metastatic disease Lung mets/pancreatic mass Comfort Care Patient on comfort measures [facility] home hospice services on board. Initial plan was home hospice however patient declining today and appears to be in terminal phase of life and is now [facility] inpatient hospice Continue comfort measures DNR/DNI as per discussion with pt's family Pt care coordinated with Dr Reed. See addendum I spent a total of 55 minutes reviewing notes, outpatient records, labs, medication, coordinating, documenting and providing care for this patient excluding time spent in the performance of separately billed services. Admission and Anticipated Discharge Date Admission Date: July 15, 2024 History of Present Illness Chief Complaint: Hospice, comfort care Primary Care Provider: Bennett Slaughter MD Patient is 79 y/o male who is currently admitted for comfort care measures secondary to diffuse metastatic burden. Initial plan was to get patient home with home hospice however today patient actively declining and patient and family met with [facility] hospice. This evening I was notified by nurse patient is now [facility] inpatient hospice. Patient continues to be comfort care with comfort measures in place and is in terminal phase of life. Allergies Allergy/AdvReac Type Severity Reaction Status Date / Time No Known Allergies Allergy Unverified 07/14/24 11:58 Home Medications Medication Instructions Recorded Confirmed Type nitroglycerin 0.4 mg sublingual 0.4 mg sublingual Q5M PRN Chest 05/11/18 07/14/24 History tablet Pain lorazepam 1 mg/0.5 mL oral syringe 1 mg (0.5 mL) PO TID PRN anxiety 07/14/24 Rx (FOR ORAL USE ONLY) #30 ea mirtazapine 15 mg tablet 15 mg PO HS 07/14/24 07/14/24 History morphine 20 mg/5 mL (4 mg/mL) oral 5 mg (1.25 mL) PO Q6H 7 days #35 mL 07/14/24 Rx solution ondansetron HCl 4 mg tablet 4 mg PO Q6H 7 days #28 tabs 07/14/24 Rx ondansetron HCl 4 mg tablet 4 mg PO Q6H PRN Nausea And Vomiting 07/14/24 07/14/24 History terazosin 2 mg capsule 2 mg PO DAILY 07/14/24 07/14/24 History hyoscyamine sulfate 0.125 mg 0.125 mg PO Q4H PRN dyspepsia #14 07/15/24 Rx tablet (Levsin) tabs lorazepam 2 mg/mL oral concentrate 0.5 mg (0.25 mL) PO Q4H PRN 07/15/24 Rx (Lorazepam Intensol) alcohol withdrawal #30 mL morphine concentrate 100 mg/5 mL 5 mg (0.25 mL) PO Q3H PRN pain #10 07/15/24 Rx (20 mg/mL) oral solution mL Past Med/Surg History Problem List Admission for hospice care (Acute) Acute confusion (Acute) Abdominal pain (Acute) Metastatic cancer (Acute) Hypoxia (Acute) Pancreatic mass Lung mass HTN (hypertension) Hyperlipemia (Chronic) Continue increased dose of atorvastatin on discharge Prediabetes CAD (coronary artery disease) S/P drug eluting coronary stent placement Brilinta is nonformulary. Will convert to clopidogrel this morning. Cardiac rehab consultation to be placed S/P PTCA (percutaneous transluminal coronary angioplasty) STEMI (ST elevation myocardial infarction) Clinically stable. Will optimize medical therapy. Resume carvedilol and lisinopril at prehospital dosing. Reduce aspirin to 81 mg p.o. daily. Cardiac rehab consulted Tobacco cessation mandated Follow-up with cardiology 2- 4 weeks time [facility] [place] Fall (Acute) Hip fracture (Acute) Social History Smoking Status: Current every day smoker Second Hand Exposure: Yes; Do You Dip or Chew Tobacco: No; Hx Alcohol Use: No Hx Substance Use: No Preferred Language: Welsh Communication Ability: Effective School Community Relations Coordinator Required: No Beliefs That Will Affect Care: None Current Living Situation: Spouse Feels Safe at Home: Yes Safety Concerns: Feels Safe At This Time Assistive Devices: Cane and Walker Review of Systems Review of Systems: Unobtainable due to reduced consciousness Physical Exam Physical Exam: General: ill appearing elderly male Head: normocephalic, atraumatic Lungs: clear, no respiratory distress currently on oxygen CV: RRR Ext: no cyanosis, no mottling Neuro: arouses briefly opening eyes and looks at family then closes eyes (3) Metastatic cancer Area of secondary neoplastic involvement: unspecified site Qualified Code(s): C79.9 - Secondary malignant neoplasm of unspecified site
[2024-07-15] MEDS: MoRPHine SULFATE 2 MG/ML CARP IV PRN (20:05)
[2024-07-15] MEDS: MoRPHine SULFATE 10 MG/0.5 ML UDP PO PRN (22:12)
[2024-07-16] MEDS: LORazepam 2 MG/1 ML VIAL IV PRN (03:36)
[2024-07-16 08:17] VITALS: BP 160/65; PULSE 101; RESP 20; TEMP 98.4; O2SAT 91
--- NOTE | 2024-07-16 13:24 | Discharge Summary ---
Date of Service July 16, 2024 Admission HPI Per Admitting Provider Patient is 79 y/o male who is currently admitted for comfort care measures secondary to diffuse metastatic burden. Initial plan was to get patient home with home hospice however today patient actively declining and patient and family met with [facility] hospice. This evening I was notified by nurse patient is now [facility] inpatient hospice. Patient continues to be comfort care with comfort measures in place and is in terminal phase of life. Admission Exam Per Admitting Provider General: ill appearing elderly male Head: normocephalic, atraumatic Lungs: clear, no respiratory distress currently on oxygen CV: RRR Ext: no cyanosis, no mottling Neuro: arouses briefly opening eyes and looks at family then closes eyes Principal Diagnosis metastatic disease Discharge Exam General: ill appearing elderly male Head: normocephalic, atraumatic Lungs: clear, no respiratory distress currently on oxygen CV: RRR Ext: no cyanosis, no mottling Neuro: spontaneous eye opening. Discharge Data Allergies Allergy/AdvReac Type Severity Reaction Status Date / Time No Known Allergies Allergy Unverified 07/14/24 11:58 Hospital Course (1) Pancreatic mass: (2) Lung mass: (3) Metastatic cancer: (4) Admission for hospice care: Plan Patient being managed for the following: Heavily suspected metastatic disease Lung mets/pancreatic mass After extensive discussion with the patient and patient's family, the patient will be initiated on comfort measures security and compliance project manager/hospice consulted for further evaluation and treatment Discharge today with [facility] home hospice services, Patient's was at bedside who wants to take him home today regardless of transport is arranged for. She states that he is in better shape than yesterday and would like him to be at home. She states that comfort medication has already been picked up by her daughter and they are taken care of. They want to take him home and case manager specialist is arranging home hospice. HTN: Discontinue carvedilol/lisinopril No further workup/lab work/heart monitoring indicated at this time Patient is a DNR/DNI Patient to be discharged to home hospice with [facility] home hospice services. His prognosis is terminal. Home Health Attestation I certify that this patient is under my care and that I, or a physicians assistant service manager working with me, had a face to-face encounter that meets the home health [id number] encounter requirements with this patient. The encounter with the patient was in whole, or in part, for the following medical condition, which is the primary reason for home health care (list medical condition): I certify that, based on my findings, the following services are medically necessary home health services: My clinical findings support the need for the above services because: Further, I certify that my clinical findings support that this patient is homebound (i.e. absences from home require considerable and taxing effort and are for medical reasons or buddhist services or infrequently or of short duration when for other reasons) because: Certification for Home Health Services: Based on the above findings, I certify that this patient is confined to the home and needs intermittent halfway care, physical therapy and/or speech therapy or continues to need occupational therapy. The patient is under my care, and I have initiated the establishment of the plan of care. This patient will be followed by a physician who will periodically review the plan of care. Total Time Total Time Spent Total Time Spent (In Minutes): 35 Discharge Plan Discharge Items Patient Disposition: Hospice - Home Reason For Visit: SOB, CONFUSION, PAIN ALL OVER Discharge Diagnosis: Heavily suspected metastatic disease Lung mets and pancreatic mass Activity: As commented below Activity Comment: Per hospice care provider. Non-emergency contact: Primary Care Provider Call non-emergency contact if: you have any medication questions Follow-up/Referrals: Bennett Slaughter MD [Primary Care Provider] - Diet: Regular Addtl Attending Provider Instructions: Your management and pain medications will be taken over by hospice at home. Please make sure you are able to collect hospice/comfort medications before you leave. Pending Studies at Discharge: No Stand-Alone Forms: My [facility] Medications and DC Order Prescriptions: Continued ondansetron HCl 4 mg tablet 4 mg PO Q6H PRN (Reason: Nausea And Vomiting) morphine 20 mg/5 mL (4 mg/mL) solution 5 mg PO Q6H 7 Days Qty: 35 0RF morphine concentrate 100 mg/5 mL (20 mg/mL) Solution 5 mg PO Q3H PRN (Reason: pain) Qty: 10 0RF lorazepam [Lorazepam Intensol] 2 mg/mL concentrate 0.5 mg PO Q4H PRN (Reason: alcohol withdrawal) Qty: 30 0RF hyoscyamine sulfate [Levsin] 0.125 mg tablet 0.125 mg PO Q4H PRN (Reason: dyspepsia) Qty: 14 0RF Discontinued nitroglycerin 0.4 mg Tablet, Sublingual 0.4 mg Sublingual Q5M PRN (Reason: Chest Pain) Rx Instructions: Unable to verify this medication w/ patient/pharmacy at this date/time. terazosin 2 mg capsule 2 mg PO DAILY mirtazapine 15 mg tablet 15 mg PO HS Discharge Orders: Discharge Order (Routine); Ordered 07/16/24 Ordered By: Glenis Montez Admission Data Admit Date/Time: 07/15/24 19:00 Attending Provider: Glenis Montez Admit Provider: Bennett Reed Primary Care Provider: Bennett Slaughter
== END 2024-07-16 14:47 | disposition hospice, home (50) | DRG 951 ==
LOC: 2W 19:00 → SUATTDRO 19:00